=== PATIENT | male | born 1950 | race Caucasian/White ===

== ENCOUNTER 2016-08-12 14:47 | Observation (INO) ==
[2016-08-12] MEDS ORDERED: predniSONE 20 MG TABLET PO ONE (15:38)
[2016-08-12] MEDS ORDERED: Ipratropium/Albuterol Neb 3 ML IH ONE (15:38)
--- NOTE | 2016-08-12 15:48 | Emergency Department Note ---
Disposition Clinical Impression: Lung mass, Atelectasis, Tobacco abuse Disposition: Admitted As Inpatient Condition: Fair SOB HPI - General Chief Complaint: ED Shortness of Breath/Dyspnea Stated Complaint: YUE Time Seen by Provider: 08/12/16 15:17 Source: patient Limitations: no limitations Nursing Notes Reviewed: Yes Vital Signs Reviewed: Yes - History of Present Illness 65 on male presents with chief complaint of shortness of breath of one-week that has been progressively getting worse. Denies productive cough, fevers, chills. Shortness of breath does not worsen with movement and is the same laying down or sitting up. Currently patient is satting 100% on room air but states he feels very short of breath. His face is very pink. Patient has a history of cigarette smoking since his teenage years and smokes 1 pack per day. He does not have a primary care physician. He is not on any medications. He does not have home O2. Patient states he has been progressively losing weight and has a decreased appetite but does not know how much. Furthermore he reports left upper chest pain that started at the same time as his shortness of breath that does not radiate, is not associated nausea or vomiting, diaphoresis. Patient says his pain does worsen with breathing and movement. Furthermore patient had a deer tick on his left shoulder that was present for one week. - Related Data Home Medications Medication Instructions Recorded Confirmed No Known Home Drugs 08/12/16 08/12/16 Allergies Allergy/AdvReac Type Severity Reaction Status Date / Time No Known Allergies Allergy Verified 08/12/16 14:52 Review of Systems: ROS: Constitutional: Denies fevers chills, reports weight loss HEENT: Denies blurry vision, headache, sore throat, rhinorrhea Heart: palpitations, syncope, diaphoresis, reports left upper chest pain Lungs: Reports shortness of breath, denies cough Abdomen: Denies abdominal pain, nausea, vomiting : Denies dysuria, Extremeties: Denies leg cramps, swelling Neuro: Denies numbness and tingling All systems ED: reviewed and negative except as stated. Past Medical History - Past Medical History Medical history: Reports: no medical history Psychiatric history: Reports: no psych history - Social History Smoking Status: Current every day smoker Smokeless Tobacco Status: No Alcohol use: Reports: occasionally Drug use: Reports: none Physical Exam General: Alert and oriented to place, time, self, red face HEENT: Head normocephalic, atraumatic, EOMI, PERRLA, neck without lymphadenopathy, absent JVD, moist mucous membranes Heart: Regular rate and rhythm no murmur, Lungs: Bibasilar wheezing Abdomen: Soft nontender nondistended with positive bowel sounds Extremities: Normal capillary refill, absent pedal edema, upper and lower extra strength 5 out of 5, left shoulder abduction with resistance is painful for the patient vascular: Pedal pulses and radial pulses 2 out of 4 - General Limitations: no limitations General appearance: alert Course Course Narrative: We will order basic labs, CT chest. Chest x-ray shows possible obstructive mass , which is quite concerning as patient has history of smoking without any follow -up outpatient with her primary care physician and states he has had decreased appetite and unintentional weight loss. EKG is normal sinus rhythm - Reevaluation(s) Reevaluation #1: Chest x-ray shows possible obstructing mass. CT chest without contrast shows obstructing mass 3 x 3 cm left hilar region with collapsing of the left upper lobe. Patient was told his CT results and understands the gravity of the finding. He is willing to be admitted for further evaluation including bronchoscopy. We will contact hospitalist for admission. Time: 16:51 Reevaluation #2: Patient accepted by hospitalist. Time: 17:02 Vital Signs Temperature 98.1 F 08/12/16 14:52 Pulse Rate 84 08/12/16 14:52 Respiratory Rate 20 08/12/16 14:52 Blood Pressure 144/84 08/12/16 14:52 O2 Sat by Pulse Oximetry 99 08/12/16 14:52 Temperature 98.1 F 08/12/16 14:52 Pulse Rate 86 08/12/16 16:49 Respiratory Rate 16 08/12/16 17:46 Blood Pressure 137/87 08/12/16 17:46 O2 Sat by Pulse Oximetry 98 08/12/16 16:49 Oxygen Delivery Oxygen Delivery Room Air Shortness of Breath/Dyspnea - [facility] Narrative Medical decision making narrative: Patient's shortness of breath is most likely secondary to possible lung mass causing collapse of the left upper lobe. - Differential Diagnosis Likely: acute exacerbation of chronic obstructive airways disease - Medical Records Medical records reviewed: Yes I reviewed the patient's medical records. - Lab Data Lab results reviewed: Yes I reviewed the patient's lab results. Result diagrams: 08/12/16 16:42 08/12/16 16:42 Lab Results 08/12/16 08/12/16 08/12/16 Range/Units 16:42 16:42 16:42 WBC 8.4 (4.3-11.1) K/mcL RBC 4.72 (4.19-5.50) M/mcL Hgb 14.3 (12.9-16.9) g/dL Hct 41.6 (37.5-50.1) % MCV 88.1 (83.0-100.0) fL MCH 30.3 (28.0-33.3) pg MCHC 34.4 (31.6-35.5) g/dL RDW 12.9 (11.5-14.5) % Plt Count 456 H (140-400) K/mcL MPV 8.7 L (9.4-12.4) fL Immature Gran % 0.4 (0-4) % Seg Neutrophils % 67.9 % Lymphocytes % 21.4 % Monocytes % 8.5 % Eosinophils % 1.1 % Basophils % 0.7 % Neutrophils # 5.7 (1.6-8.9) K/mcL Lymphocytes # 1.8 (0.6-4.6) K/mcL Monocytes # 0.7 (0.0-1.3) K/mcL Eosinophils # 0.1 (0.0-0.6) K/mcL Basophils # 0.1 (0.0-0.2) K/mcL Sodium 132 L (136-145) mEq/L Potassium 4.4 (3.5-4.5) mEq/L Chloride 94 L (98-109) mEq/L Carbon Dioxide 29 (19-29) mEq/L BUN 5 L (8-26) mg/dL Creatinine 0.68 L (0.72-1.25) mg/dL Est GFR ( Amer) > 60 (> 60) Est GFR (Non-Af Amer) > 60 (> 60) BUN/Creatinine Ratio 7 (6-26) Glucose 96 (70-99) mg/dL Calculated Osmolality 271 L (280-300) Calcium 10.3 (8.6-10.8) mg/dL Troponin I 0.00 (0-0.03) ng/mL - Radiology Data Radiology results reviewed: Yes I reviewed the patient's radiology results. - EKG Data EKG attestation: Yes I reviewed and interpreted this EKG. EKG results narrative: EKG shows sinus rhythm rate [address]-T wave changes no changes from the past. Normal sinus rhythm Attestation Statement - Attestation Attestation: I examined this patient and my medical decision-making was reviewed with the QA INTER[employer]/PA/Advanced Practice Nurse/Resident Physician. I agree with the documented findings, disposition and treatment plan as described except to the extent set forth below. I had face to face time with the patient. 65-year-old with a very positive history of smoking who comes in with weight loss and cough. Physical examination shows diffuse wheezing. Chest x-ray was concerning for a mass. CT scan was obtained which appears to show mass and adenopathy. Patient will be admitted to the hospital for further evaluation and treatment.
[2016-08-12 16:56] LABS: Basophils # 0.1 K/mcL (0.0-0.2); Basophils % 0.7 %; Eosinophils # 0.1 K/mcL (0.0-0.6); Eosinophils % 1.1 %; Hematocrit 41.6 % (37.5-50.1); Hemoglobin 14.3 g/dL (12.9-16.9); Immature Granulocytes % 0.4 % (0-4); Lymphocytes # 1.8 K/mcL (0.6-4.6); Lymphocytes % 21.4 %; Mean Corpuscular HGB Conc 34.4 g/dL (31.6-35.5); Mean Corpuscular Hemoglobin 30.3 pg (28.0-33.3); Mean Corpuscular Volume 88.1 fL (83.0-100.0); Mean Platelet Volume 8.7 fL (9.4-12.4); Monocytes # 0.7 K/mcL (0.0-1.3); Monocytes % 8.5 %; Neutrophils # 5.7 K/mcL (1.6-8.9); Platelet Count 456 K/mcL (140-400); Red Blood Count 4.72 M/mcL (4.19-5.50); Red Cell Distribution Width 12.9 % (11.5-14.5); Segmented Neutrophils % 67.9 %
[2016-08-12 17:07] LABS: BUN/Creatinine Ratio 7 (6-26); Blood Urea Nitrogen 5 mg/dL (8-26); Calcium 10.3 mg/dL (8.6-10.8); Carbon Dioxide 29 mEq/L (19-29); Chloride 94 mEq/L (98-109); Glucose 96 mg/dL (70-99); Osmolality,Calculated 271 (280-300); Potassium 4.4 mEq/L (3.5-4.5); Sodium 132 mEq/L (136-145); eGFR For African Americans > 60 (> 60); eGFR For Non-African Americans > 60 (> 60)
[2016-08-12] MEDS ORDERED: Naloxone 0.4 MG/ML INJ IVP PRN (17:54)
[2016-08-12] MEDS ORDERED: *HR* LORazepam 2 MG/ML VIAL IVP PRN ×3 (17:58)
--- NOTE | 2016-08-12 18:08 | Internal Med History&Physical ---
<Maria Guadalupe Dugan M - Last Filed: 08/12/16 20:41> Date of Encounter: 08/12/16 Time of Encounter: 18:05 Assessment and Plan (1) Lung mass Current visit: Yes Status: Acute Patient presented with shortness of breath, weight loss, and pain on inspiration. Patient satting 97% on room air. CXR shows Left upper lobe atelectasis, a proximally obstructing mass should be considered. Noncontrast Chest CT shows probable left hilar/suprahilar mass measuring approximately 3 x 3 cm, endobroncial component is suspected given the left upper lobe atelectasis. Titrate Oxygen to maintain O2 sat > 92% Consult to pulmonology ordered, will need to be called in the morning NPO after midnight for possible bronchoscopy tomorrow. (2) Alcohol abuse Current visit: Yes Status: Acute Patient reports he drinks 10 beers per day. CIWA protocol ordered. LFTs, Amylase and Lipase were normal. (3) Tobacco abuse Current visit: Yes Status: Acute Patient smokes 1PPD. Discussed smoking cessation. Nicotine patch ordered. (4) DVT prophylaxis Current visit: Yes Status: Acute encourage ambulation anti-embolic stockings Lovenox 40mg SQ daily Internal Medicine - H&P: HPI Chief complaint: shortness of breath Admitted From: Emergency Dept Plans for Post Hospital Care: Home History of present illness: Mr. Davenport is a 65 year old male with no past medical history presented to the emergency department today with complaints of shortness of breath for the last 2 weeks which has been getting worse. Patient reports the shortness of breath comes and goes, but is not associated with activity or rest, or position. He also complains of pain in his left shoulder which has been going on for about a week when he takes a deep breath he notices the pain in his left shoulder is worse. He has occasional lightheadedness. He reports a poor appetite which has been getting worse over the last 6 months, and significant weight loss, though he does not know how much weight. He denies any headache, palpitations, cough, fever, chills, night sweats. He denies any numbness or tingling. Patient is a smoker with a [id number] history. He also reported he drinks 10 beers per day. Evaluation in emergency department was significant for a chest x -ray which showed left upper lobe atelectasis, approximately obstructing mass should be considered. Noncontrast CT of the chest showed probable left hilar/ super hilar mass measuring approximately 3 x 3 cm, endobronchial component is suspected given the left upper lobe atelectasis. White blood cell count was normal. Troponin was negative at 0.0. Patient had some mild hyponatremia with sodium of 132. On exam, patient is alert and oriented, in no acute distress. Heart is regular rate and rhythm lungs are clear bilaterally to auscultation. Patient is satting 97% on room air. Past Med Surg Social Fam HX - Past Medical History Medical history: no medical history Psychiatric history: no psych history - Past Surgical History Surgical History: non-contributory - Social History Smoking Status: Current every day smoker (50 Pack year history) Smokeless Tobacco Status: No Alcohol use: heavy Drug use: none - Family History Mother Living Status: Cause of : Cancer Hx Family Cancer: Yes Father Living Status: Age at : 85 Cause of : lung CA Hx Family Cancer: Yes Internal Medicine - H&P: Meds No Known Home Drugs 08/12/16 [History] Allergies No Known Allergies Allergy (Verified 08/12/16 14:52) All Systems PM: A 10-system review of systems was performed and is negative for pertinent findings except as documented above in the HPI. - Constitutional Constitutional: anorexia, weight loss, no chills, no fever(s), no night sweats - EENT Eyes: no change in vision, no discharge, no pain, no photophobia Ears: no ear discharge, no ear pain, no tinnitus Nose, mouth and throat: no dysphagia, no nasal discharge, no neck pain, no sore throat - Cardiovascular Cardiovascular ROS IM: chest pain (left shoulder), no diaphoresis, no dyspnea, no lightheadedness, no palpitations, no syncope - Respiratory Respiratory: dyspnea, pain on inspiration, no cough, no wheezing, no excessive phlegm production - Gastrointestinal Gastrointestinal: no abdominal pain, no diarrhea, no hematemesis, no hematochezia, no melena, no nausea, no vomiting - Musculoskeletal Musculoskeletal ROS IM: no numbness, no tingling - Integumentary Integumentary IM: no rash, no unusual bruising - Neurological Neurological ROS: no confusion, no convulsions, no focal weakness, no numbness, no tingling, no tremor(s) - Hematologic/Lymphatic Hematologic/Lymphatic: no easy bruising - Constitutional Vitals: Temp Pulse Resp BP Pulse Ox 98.1 F 86 16 137/87 98 08/12/16 14:52 08/12/16 16:49 08/12/16 17:46 08/12/16 17:46 08/12/16 16:49 General appearance: Present: A&O X 3, pleasant, no acute distress - Head Head exam: Present: atraumatic, normocephalic - Eye Eye exam: Present: PERRL, conjuntiva pink, sclera anicteric Pupils: Present: PERRL - Neck Neck exam general surgery: Present: supple, trachea midline. Absent: lymphadenopathy - Respiratory Respiratory exam: Present: CTAB. Absent: accessory muscle use, rales, rhonchi, wheezes - Cardiovascular Cardiovascular exam: Present: RRR, +S1, +S2. Absent: diastolic murmur, gallop, rubs, systolic murmur - GI/Abdominal GI/Abdominal exam: Present: normal bowel sounds, soft, no peritoneal signs. Absent: distended, tenderness - Extremities Exam Extremities exam: Present: warm, radial pulses palpable and symetrical. Absent : calf tenderness, cyanotic, pedal edema - Neurological Exam Neurological exam: Present: CN II-XII intact, oriented X3, no focal deficits. Absent: facial droop, speech deficit - Skin Skin exam: Present: dry, erythema (facial erythema), intact Internal Med - H&P Results - Labs CBC & Chem 7: 08/12/16 16:42 08/12/16 16:42 Labs: All Lab Results (24 Hours) 08/12/16 08/12/16 08/12/16 Range/Units 16:42 16:42 16:42 WBC 8.4 (4.3-11.1) K/mcL RBC 4.72 (4.19-5.50) M/mcL Hgb 14.3 (12.9-16.9) g/dL Hct 41.6 (37.5-50.1) % MCV 88.1 (83.0-100.0) fL MCH 30.3 (28.0-33.3) pg MCHC 34.4 (31.6-35.5) g/dL RDW 12.9 (11.5-14.5) % Plt Count 456 H (140-400) K/mcL MPV 8.7 L (9.4-12.4) fL Immature Gran % 0.4 (0-4) % Seg Neutrophils % 67.9 % Lymphocytes % 21.4 % Monocytes % 8.5 % Eosinophils % 1.1 % Basophils % 0.7 % Neutrophils # 5.7 (1.6-8.9) K/mcL Lymphocytes # 1.8 (0.6-4.6) K/mcL Monocytes # 0.7 (0.0-1.3) K/mcL Eosinophils # 0.1 (0.0-0.6) K/mcL Basophils # 0.1 (0.0-0.2) K/mcL Sodium 132 L (136-145) mEq/L Potassium 4.4 (3.5-4.5) mEq/L Chloride 94 L (98-109) mEq/L Carbon Dioxide 29 (19-29) mEq/L BUN 5 L (8-26) mg/dL Creatinine 0.68 L (0.72-1.25) mg/dL Est GFR ( Amer) > 60 (> 60) Est GFR (Non-Af Amer) > 60 (> 60) BUN/Creatinine Ratio 7 (6-26) Glucose 96 (70-99) mg/dL Calculated Osmolality 271 L (280-300) Calcium 10.3 (8.6-10.8) mg/dL Troponin I 0.00 (0-0.03) ng/mL - Diagnostic Studies Chest x-ray Additional comments: Chest X-Ray 08/12/16 14:55 IMPRESSION: Evidence for left upper lobe atelectasis. A proximally obstructing mass should be considered. Bronchoscopy or a chest CT may be helpful for further evaluation D/ / Channing Maradiaga MD / Channing Maradiaga MD Interpreting Provider: Channing Maradiaga MD CT scan - chest Additional comments: Chest CT 08/12/16 15:38 IMPRESSION: 1. Suboptimal evaluation of probable left hilar/suprahilar mass measuring approximately 3 x 3 cm. Endobronchial component is suspected given the left upper lobe atelectasis. Further evaluation with contrast-enhanced chest CT and/or bronchoscopy is recommended. D/ / 08/12/2016 16:29:37 Elle Mitchell MD / jesse Interpreting Provider: Elle Mitchell MD <JustinherminiaNeil - Last Filed: 08/13/16 00:26> Date of Encounter: 08/12/16 Internal Medicine - H&P: HPI History of present illness: Mr. Davenport is a 65 year old male All Systems PM: A 10-system review of systems was performed and is negative for pertinent findings except as documented above in the HPI. - Constitutional Vitals: Temp Pulse Resp BP Pulse Ox 97.8 F 65 15 119/68 97 08/12/16 20:03 08/12/16 23:50 08/12/16 23:50 08/12/16 23:50 08/12/16 23:50 Internal Med - H&P Results - Labs CBC & Chem 7: 08/12/16 16:42 08/12/16 16:42 - Attending Attestation I personally interviewed and examined this patient and my medical decision- making was reviewed with the Advanced Practice Nurse. I agree with the documented findings, disposition and treatment plan as described.
[2016-08-12 18:25] LABS: INR 1.1; Prothrombin Time 11.5 Seconds (9.4-12.1)
[2016-08-12 18:28] LABS: Alanine Aminotransferase 20 Units/L (0-55); Albumin/Globulin Ratio 0.6 (1.1-2.2); Alkaline Phosphatase 42 Units/L (38-126); Amylase 91 Units/L (25-125); Aspartate Amino Transferase 25 Units/L (5-34); Bilirubin,Direct 0.2 mg/dL (0.0-0.5); Bilirubin,Indirect 0.2 mg/dL (0.0-1.2); Bilirubin,Total 0.4 mg/dL (0.2-1.2); Ethanol < 10 mg/dL (0-10); Lipase 8 Units/L (8-78)
[2016-08-12] MEDS: Nicotine 21 MG PATCH.TD24 TD SCH (18:32)
[2016-08-12] MEDS: Ibuprofen 600 MG TABLET PO PRN (20:34)
[2016-08-13 05:01] LABS: Basophils % 0.3 %; Hematocrit 38.6 % (37.5-50.1); Hemoglobin 13.5 g/dL (12.9-16.9); Immature Granulocytes % 0.5 % (0-4); Lymphocytes # 1.1 K/mcL (0.6-4.6); Lymphocytes % 17.2 %; Mean Corpuscular Hemoglobin 30.8 pg (28.0-33.3); Mean Corpuscular Volume 87.9 fL (83.0-100.0); Mean Platelet Volume 9.1 fL (9.4-12.4); Monocytes # 0.5 K/mcL (0.0-1.3); Monocytes % 7.8 %; Neutrophils # 4.8 K/mcL (1.6-8.9); Platelet Count 451 K/mcL (140-400); Red Blood Count 4.39 M/mcL (4.19-5.50); Red Cell Distribution Width 12.9 % (11.5-14.5); Segmented Neutrophils % 74.2 %
[2016-08-13 05:23] LABS: BUN/Creatinine Ratio 11 (6-26); Blood Urea Nitrogen 7 mg/dL (8-26); Calcium 10.2 mg/dL (8.6-10.8); Carbon Dioxide 28 mEq/L (19-29); Chloride 96 mEq/L (98-109); Glucose 125 mg/dL (70-99); Magnesium 1.6 mg/dL (1.6-2.6); Osmolality,Calculated 279 (280-300); Phosphorous 4.1 mg/dL (2.3-4.7); Potassium 4.5 mEq/L (3.5-4.5); Sodium 135 mEq/L (136-145); eGFR For African Americans > 60 (> 60); eGFR For Non-African Americans > 60 (> 60)
[2016-08-13] MEDS: *HR* Enoxaparin 40 MG/0.4 ML SYRINGE SQ SCH (06:37)
--- NOTE | 2016-08-13 08:21 | Pulmonology Consult Note ---
Date of Encounter: 08/13/16 Time of Encounter: 08:18 Assessment and Plan (1) Abnormal CT scan, chest Current Visit: Yes Status: Acute The abnormal findings noted from review of CT scan in conjunction with the patient's smoking history and symptoms are all suggestive of bronchogenic malignancy. The patient aside from proximal obstructing lesion in the left upper lobe may have mediastinal adenopathy as well. Further evaluation will be performed to include conventional bronchoscopy and EBUS. I reviewed the situation with the patient, his daughter and all agree to proceed as outlined. Parvez Morley [phone] Code(s): R93.8 - Abnormal findings on diagnostic imaging of other specified body structures History of Present Illness Consult date: 08/13/16 Chief complaint: Cough, shortness of breath, weight loss History of present illness: This 65-year-old male active cigarette smoker of at least [id number] intensity was admitted to the hospital with complaints of nonproductive cough, progressive breathlessness with activity and nonelective weight loss (he estimates approximately 10-12 pound weight loss over the last several months). Given his complaints, a CT scan of the chest was obtained which was abnormal and hence pulmonary consultation requested. The patient denies hemoptysis, pleuritic chest pain, fever or chills. There is no well established family history of pulmonary disease or pulmonary malignancy. 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 Past Med Surg Social Fam HX - Past Medical History Medical history: no medical history Psychiatric history: no psych history - Past Surgical History Surgical History: non-contributory - Social History Smoking Status: Current every day smoker (50 Pack year history) Smokeless Tobacco Status: No Alcohol use: heavy Drug use: none - Family History Mother Living Status: Cause of : Cancer Hx Family Cancer: Yes Father Living Status: Age at : 85 Cause of : lung CA Hx Family Cancer: Yes Medications and Allergies No Known Home Drugs 08/12/16 [History] Allergies No Known Allergies Allergy (Verified 08/12/16 14:52) All Systems: A 10-system review of systems was performed and is negative for pertinent findings except as documented above in the HPI. - Constitutional Constitutional: as per HPI - Respiratory Respiratory: as per HPI Physical Examination Vital Signs: Vital Signs, Last 4 Hours Temp Pulse Resp BP Pulse Ox 08/13/16 04:42 98.6 F 71 16 142/89 96 General appearance: no acute distress, other (Cachectic, male appears stated age.) Eyes: nonicteric ENT: oropharynx moist Auscultation: left: diminished breath sounds (Attenuated breath sounds left upper lobe.), bilateral: clear Cardiovascular: regular rate and rhythm Gastrointestinal: normoactive bowel sounds, non-distended Extremities: no cyanosis, no edema, no clubbing normal mental status, non-focal exam mood appropriate Results - Laboratory Findings CBC and BMP: 08/13/16 04:44 08/13/16 04:44 PT/INR, D-dimer PT 11.5 Seconds (9.4-12.1) 08/12/16 16:42 Abnormal lab findings: Abnormal lab results Plt Count 451 K/mcL (140-400) H 08/13/16 04:44 MPV 9.1 fL (9.4-12.4) L 08/13/16 04:44 Sodium 135 mEq/L (136-145) L 08/13/16 04:44 Chloride 96 mEq/L (98-109) L 08/13/16 04:44 BUN 7 mg/dL (8-26) L 08/13/16 04:44 Creatinine 0.66 mg/dL (0.72-1.25) L 08/13/16 04:44 Glucose 125 mg/dL (70-99) H 08/13/16 04:44 Calculated Osmolality 279 (280-300) L 08/13/16 04:44 Albumin 3.0 g/dL (3.5-5.0) L 08/12/16 16:42 Globulin 5.0 g/dL (2.4-3.5) H 08/12/16 16:42 Albumin/Globulin Ratio 0.6 (1.1-2.2) L 08/12/16 16:42 - Diagnostic Findings CT scan - chest: image reviewed (Chest CT notable for complete volume loss of the left upper lobe with the appearance of a drowned lung, proximal obstruction of the left upper lobe bronchus, prominence of the left paratracheal region by lymph adenopathy, large calcified right paratracheal lymph node. There is also mild prominence of the subcarinal lymph node chain.) Consult Discharge Plan - Plan Referrals: NO,PCP [Primary Care Provider] -
[2016-08-13] MEDS: Nicotine 21 MG PATCH.TD24 TD SCH (09:20)
[2016-08-13] MEDS: Ibuprofen 600 MG TABLET PO PRN ×2 (09:59→19:30)
[2016-08-13] MEDS ORDERED: Lidocaine Viscous Oral Soln 15 ML SOLUTION ONE (11:31)
[2016-08-13] MEDS ORDERED: *HR* Midazolam HCl 5 MG/5 ML VIAL IVP ONE (11:31)
[2016-08-13] MEDS ORDERED: *HR* FentaNYL (PF) 100 MCG/2 ML VIAL ONE (11:31)
[2016-08-13] MEDS ORDERED: *HR* FentaNYL (PF) 100 MCG/2 ML VIAL IVP PRN (11:46)
[2016-08-13] MEDS ORDERED: Lidocaine Viscous Oral Soln 15 ML SOLUTION MM ONE (11:46)
[2016-08-13] MEDS ORDERED: *HR* Midazolam HCl 5 MG/5 ML VIAL IVP PRN (11:46)
[2016-08-13] MEDS ORDERED: *HR* EPINEPHrine 1 MG/10 ML SYRINGE INTRATRACH PRN (11:46)
[2016-08-13] MEDS ORDERED: 0.9 % Sodium Chloride 1,000 ML IVC SCH (12:00)
--- NOTE | 2016-08-13 13:52 | Event Note ---
Date of Encounter: 08/13/16 Time of Encounter: 13:50 The bronchoscopy performed earlier today revealed malignant disease encroaching upon the main paulina within the left mainstem bronchus as well as complete obstruction of the left upper lobe. Patient also had visual evidence to suggest left vocal cord paresis and hence given the findings from bronchoscopy as well as the imaging studies, this patient has advanced stage non-small cell lung cancer and would only be a candidate to receive chemotherapy and radiation therapy. I reviewed the findings as well as the ramifications of these findings with the patient's family. From my perspective, the patient can be discharged from the hospital and follow-up with oncology in order to coordinate chemotherapy and radiation therapy. Thank you for the consultation, please contact me should she have any questions Parvez Grant [phone]
--- NOTE | 2016-08-13 17:27 | Internal Med Progress Note ---
<Elvi Graf - Last Filed: 08/13/16 17:24> Date of Encounter: 08/13/16 Time of Encounter: 10:00 - Assessment and plan (1) Lung mass Current Visit: Yes Status: Acute Assessment and plan: chest CT showed left hilar/suprahilar mass measuring 3x3cm. endobronchial component suspected. pulmonology on board patient had bronchoscopy earlier today, which revealed malignant disease encroaching upon the main paulina within the left mainstem bronchus, as well as complete obstruction of the left upper lobe. visual evidence to suggest left vocal cord paresis, suggesting of non small cell lung cancer. Plan: will monitor overnight, likely discharge tomorrow. will follow up outpatient with heme/onc (2) Alcohol abuse Current Visit: Yes Status: Acute Assessment and plan: according to history, patient drinks about 10 beers per day. LFTs, amylase, lipase normal. [facility] protocol. (3) Tobacco abuse Current Visit: Yes Status: Acute Assessment and plan: patient has 50 pack year smoking history. states he quit two years ago. Plan: smoking cessation advised nicotine patch as needed (4) DVT prophylaxis Current Visit: Yes Status: Acute Assessment and plan: lovenox. - Subjective Interval history: 65 year old male evaluated at bedside. he denies nausea, vomiting, diarrhea, fever, chills. he repors SOB when lying flat x2 weeks. he states he props himself up on one pillow. he denies blood in stool, denies tarry stools and coffee ground emesis. patient's family reports that they have noticed a change in his voice recently, and that it has become more hoarse. - Constitutional Vitals: Temp Pulse Resp BP Pulse Ox 97.6 F 79 16 147/92 69 08/13/16 15:51 08/13/16 15:51 08/13/16 15:51 08/13/16 15:51 08/13/16 15:51 General appearance: Present: A&O X 3, pleasant, no acute distress - Head Head exam: Present: atraumatic, normocephalic - Neck Neck exam general surgery: Present: supple, trachea midline - Respiratory Respiratory exam: Present: CTAB - Extremities Exam Extremities exam: Absent: cyanotic, tenderness Additional comments: clubbing present. - Neurological Exam Neurological exam: Present: alert, oriented X3, no focal deficits - Psychiatric Psychiatric exam: Present: anxious, depressed - Skin Additional comments: significant erythema on the face and neck. Internal Medicine: Result - Labs CBC & Chem 7: 08/13/16 04:44 08/13/16 04:44 Labs: Short CBC 08/13/16 Range/Units 04:44 WBC 6.5 (4.3-11.1) K/mcL Hgb 13.5 (12.9-16.9) g/dL Hct 38.6 (37.5-50.1) % Plt Count 451 H (140-400) K/mcL Neutrophils # 4.8 (1.6-8.9) K/mcL BMP 08/13/16 04:44 Sodium 135 L Potassium 4.5 Chloride 96 L Carbon Dioxide 28 BUN 7 L Creatinine 0.66 L Glucose 125 H Calcium 10.2 - ABG Interpretation ABG results: PT/INR, D-dimer PT 11.5 Seconds (9.4-12.1) 08/12/16 16:42 - VTE Documentation of Mechanical Device: Graduated compression elastic hosiery Consult Discharge Plan - Plan Referrals: Jose Enrique Vela MD [Non-Partnered Physician] - 09/02/16 9:15 am (please bring photo id, med list, insurance card, will recive packet in mail please fill that put and bring to appoinment. if you are unable to make this appoinment please give 24 hour notice thanks) <Juan F Sanchez P - Last Filed: 08/13/16 18:07> Date of Encounter: 08/13/16 - Constitutional Vitals: Temp Pulse Resp BP Pulse Ox 97.6 F 79 16 147/92 69 08/13/16 15:51 08/13/16 15:51 08/13/16 15:51 08/13/16 15:51 08/13/16 15:51 Internal Medicine: Result - Labs CBC & Chem 7: 08/13/16 04:44 08/13/16 04:44 Labs: Short CBC 08/13/16 Range/Units 04:44 WBC 6.5 (4.3-11.1) K/mcL Hgb 13.5 (12.9-16.9) g/dL Hct 38.6 (37.5-50.1) % Plt Count 451 H (140-400) K/mcL Neutrophils # 4.8 (1.6-8.9) K/mcL BMP 08/13/16 04:44 Sodium 135 L Potassium 4.5 Chloride 96 L Carbon Dioxide 28 BUN 7 L Creatinine 0.66 L Glucose 125 H Calcium 10.2 - ABG Interpretation ABG results: PT/INR, D-dimer PT 11.5 Seconds (9.4-12.1) 08/12/16 16:42 - Attending Attestation I examined this patient and my medical decision-making was reviewed with the ACTIVE DIRECTORY ARCHITECT/PA/Advanced Practice Nurse/Resident Physician. I agree with the documented findings, disposition and treatment plan as described except to the extent set forth below.
--- NOTE | 2016-08-13 19:25 | Electrocardiograph Report ---
[address] [address] Test Date: 2016-08-12 Pat Name: Mikie Davenport Department: [id number] Room: [facility] Gender: M Racking Technician: : [id number] Requested By: Helene See Order Number: [id number] Reading MD: Rodger Ureña MD Measurements Intervals [place] Rate: 86 P: 52 ME: 174 QRS: 51 QRSD: 94 T: 74 QT: 364 QTc: 407 Interpretive Statements SINUS RHYTHM Electronically Signed On 08-13-2016 19:23:58 EDT by Rodger Ureña MD
[2016-08-13 23:25] LABS: Hemoglobin 12.7 g/dL (12.9-16.9)
[2016-08-14] MEDS: *HR* Enoxaparin 40 MG/0.4 ML SYRINGE SQ SCH (05:18)
[2016-08-14] MEDS: Ibuprofen 600 MG TABLET PO PRN (05:21)
[2016-08-14 06:30] LABS: Basophils # 0.1 K/mcL (0.0-0.2); Basophils % 0.6 %; Eosinophils % 0.5 %; Hematocrit 39.2 % (37.5-50.1); Hemoglobin 13.5 g/dL (12.9-16.9); Immature Granulocytes % 0.3 % (0-4); Lymphocytes # 1.1 K/mcL (0.6-4.6); Mean Corpuscular HGB Conc 34.4 g/dL (31.6-35.5); Mean Corpuscular Hemoglobin 30.8 pg (28.0-33.3); Mean Corpuscular Volume 89.3 fL (83.0-100.0); Mean Platelet Volume 9.4 fL (9.4-12.4); Monocytes # 0.7 K/mcL (0.0-1.3); Monocytes % 7.8 %; Neutrophils # 6.9 K/mcL (1.6-8.9); Platelet Count 457 K/mcL (140-400); Red Blood Count 4.39 M/mcL (4.19-5.50); Red Cell Distribution Width 13.1 % (11.5-14.5); Segmented Neutrophils % 78.8 %
[2016-08-14 06:54] LABS: BUN/Creatinine Ratio 12 (6-26); Blood Urea Nitrogen 8 mg/dL (8-26); Calcium 10.2 mg/dL (8.6-10.8); Carbon Dioxide 30 mEq/L (19-29); Chloride 100 mEq/L (98-109); Glucose 103 mg/dL (70-99); Osmolality,Calculated 285 (280-300); Sodium 138 mEq/L (136-145); eGFR For African Americans > 60 (> 60); eGFR For Non-African Americans > 60 (> 60)
[2016-08-14 07:20] VITALS: BP 135/86
[2016-08-14] MEDS: Nicotine 21 MG PATCH.TD24 TD SCH (09:26)
--- NOTE | 2016-08-14 10:35 | Discharge Summary ---
Date of Encounter: 08/14/16 Time of Encounter: 10:33 - Discharge Diagnosis (1) Lung mass Priority: Primary Status: Acute (2) Atelectasis Priority: Secondary Status: Acute (3) Tobacco abuse Priority: Secondary Status: Acute (4) Alcohol abuse Priority: Secondary Status: Acute (5) DVT prophylaxis Priority: Secondary Status: Acute - Discharge Medications Prescriptions: Levofloxacin [Levaquin] 500 mg PO DAILY #5 tablet Nicotine Patch [Nicoderm] 21 mg TD DAILY #30 patch.td24 Home Medications: Levofloxacin [Levaquin] 500 mg PO DAILY #5 tablet 08/14/16 [Rx] Nicotine Patch [Nicoderm] 21 mg TD DAILY #30 patch.td24 08/14/16 [Rx] Allergies/Adverse Reactions: Allergies No Known Allergies Allergy (Verified 08/12/16 14:52) Date of admission: 08/12/16 17:29 Primary care physician: PCP NO Consults: 08/12/16 17:59 Consult to Quality Control Manager [CONS] Routine Reason for SW Consult: drinks 10 beers per day 08/12/16 18:01 Consult to Pulmonology [CONS] Routine Consulting Provider: [facility] [place] Reason for Consult: New obstructing lung mass seen on CXR and CT. 50 Pack year smoking history Call Completed: No 08/12/16 18:30 Consult to Nutrition [CONS] Routine Comment: weight loss Consulting Provider: NUTRITION Reason for Dietary Consult: PO Supplementation Consult to Quality Control Manager [CONS] Routine Reason for SW Consult: possible home o2 08/13/16 19:20 Consult to Oncology Hematology [CONS] Routine Consulting Provider: Adamaris Clark Reason for Consult: Dr. Sanchez called earlier. For stage IV non-small cell lung cancer, for chemo/radiation as outpatient. Call Completed: Yes Discharging clinician: Juan F Sanchez - Patient Status Disposition: Home, Self-Care Condition: Fair Functional capacity at discharge: independent ambulation Overall status at discharge: patient is progressing back to baseline - Discharge Instructions Follow Up With: Jose Enrique Vela MD [Non-Partnered Physician] - 09/02/16 9:15 am (please bring photo id, med list, insurance card, will recive packet in mail please fill that put and bring to appoinment. if you are unable to make this appoinment please give 24 hour notice thanks) Adamaris Clark MD [Partnered Physician] - - Diet and Activity Activity: increase activity as tolerated Diet: low fat, low cholesterol, low salt diet Interval History: Mr. Davenport is a 65 year old male with no past medical history presented to the emergency department today with complaints of shortness of breath for the last 2 weeks which has been getting worse. Patient reports the shortness of breath comes and goes, but is not associated with activity or rest, or position. He also complains of pain in his left shoulder which has been going on for about a week when he takes a deep breath he notices the pain in his left shoulder is worse. He has occasional lightheadedness. He reports a poor appetite which has been getting worse over the last 6 months, and significant weight loss, though he does not know how much weight. He denies any headache, palpitations, cough, fever, chills, night sweats. He denies any numbness or tingling. Patient is a smoker with a [id number] history. He also reported he drinks 10 beers per day. Evaluation in emergency department was significant for a chest x -ray which showed left upper lobe atelectasis, approximately obstructing mass should be considered. Noncontrast CT of the chest showed probable left hilar/ super hilar mass measuring approximately 3 x 3 cm, endobronchial component is suspected given the left upper lobe atelectasis. White blood cell count was normal. Troponin was negative at 0.0. Patient had some mild hyponatremia with sodium of 132. On exam, patient is alert and oriented, in no acute distress. Heart is regular rate and rhythm lungs are clear bilaterally to auscultation. Patient is satting 97% on room air. Hospital course: Patient was hospitalized. He underwent evaluation by pulmonary. Pulmonology decided to do a bronchoscopy. Following is a copy and paste note from pulmonology which describes the bronchoscopy findings. The reason I am doing this to get all document in one place that is in discharge summary. "The bronchoscopy performed earlier today revealed malignant disease encroaching upon the main paulina within the left mainstem bronchus as well as complete obstruction of the left upper lobe. Patient also had visual evidence to suggest left vocal cord paresis and hence given the findings from bronchoscopy as well as the imaging studies, this patient has advanced stage non -small cell lung cancer and would only be a candidate to receive chemotherapy and radiation therapy. I reviewed the findings as well as the ramifications of these findings with the patient's family. From my perspective, the patient can be discharged from the hospital and follow-up with oncology in order to coordinate chemotherapy and radiation therapy." Patient can go home today. Patient can follow-up with residency clinic as patient does not have primary care provider. I have spoken to oncologist Dr Gerard and he will follow-up with the patient. This morning I discussed plan with patient, his daughters and other family members. At the time of discharge I am prescribing levofloxacin9 Post obstructive PNA) and nicotine patch. Side effects and indications of about briefly discussed at length. At the time of discharge patient does not have any question, concerns, update our recommendations. - Time Spent with Patient Total time spent providing and/or coordinating discharge services: - Constitutional Vitals: Temp Pulse Resp BP Pulse Ox 98.1 F 82 18 135/86 98 08/14/16 07:19 08/14/16 07:19 08/14/16 07:19 08/14/16 07:19 08/14/16 04:38 General appearance: Present: A&O X 3, pleasant, no acute distress - Head Head exam: Present: atraumatic, normocephalic - Eye Eye exam: Present: PERRL, conjuntiva pink, sclera anicteric Pupils: Present: PERRL - Neck Neck exam general surgery: Present: supple, trachea midline. Absent: lymphadenopathy - Respiratory Respiratory exam: Present: CTAB. Absent: accessory muscle use, rales, rhonchi, wheezes - Cardiovascular Cardiovascular exam: Present: RRR, +S1, +S2. Absent: diastolic murmur, gallop, rubs, systolic murmur - GI/Abdominal GI/Abdominal exam: Present: normal bowel sounds, soft, no peritoneal signs. Absent: distended, tenderness - Extremities Exam Extremities exam: Present: warm, radial pulses palpable and symetrical. Absent : calf tenderness, cyanotic, pedal edema - Neurological Exam Neurological exam: Present: CN II-XII intact, oriented X3, no focal deficits. Absent: pronater drift, facial droop, speech deficit - Skin Skin exam: Present: dry, intact - VTE Documentation of Mechanical Device: Graduated compression elastic hosiery
== END 2016-08-14 12:05 | disposition home or self-care (01) ==
LOC: 2NENU 14:47 → EMEROO 14:47 → 2NENU 17:35
PROVIDERS: ADMIT Internal Medicine; ATTEND Internal Medicine
PROC: ENDOBBX (2016-08-13 12:00)

== ENCOUNTER 2016-12-24 19:01 | Inpatient (IN) ==
[2016-12-24] MEDS ORDERED: Nitroglycerin 0.4 MG TAB.SUBL SL ONE (19:43)
[2016-12-24] MEDS ORDERED: Aspirin 81 MG TAB.CHEW PO ONE (19:43)
--- NOTE | 2016-12-24 19:47 | Emergency Department Note ---
Disposition Clinical Impression: HCAP (healthcare-associated pneumonia), Lactic acidosis Chest pain Qualifiers: Chest pain type: unspecified Qualified Code(s): R07.9 - Chest pain, unspecified Disposition: Admitted As Inpatient Condition: Fair Chest Pain HPI - General Chief Complaint: ED Chest Pain Stated Complaint: CP/Left arm pain 2 hrs Time Seen by Provider: 12/24/16 19:15 Source: patient, family Mode of arrival: private vehicle Limitations: no limitations Vital Signs Reviewed: Yes Nursing Notes Reviewed: Yes - History of Present Illness HPI Narrative: 66-year-old male history of lung cancer recently on chemotherapy and radiation roughly 1 month ago who presents to the ER due to chest pain. Patient states roughly 2 hours prior to arrival he developed sternal chest pain that radiated into both arms. He reports he was at rest when this happened. No history of chest pain in the past. Denies history of CAD, PE or DVT. He reports mild shortness of breath associated with this. He did not take any medication prior to arrival. He denies nausea vomiting or diarrhea. No other complaints. Pt complaint: chest pain Onset (ago): hour(s) Duration: constant Onset: during rest Pain Location: substernal Severity: moderate Severity scale (1-10): 7 Quality: aching Pain Radiation: RUE, LUE Improves with: nothing Worsens with: nothing Associated symptoms: Reports: dyspnea. Denies: nausea, vomiting, diaphoresis Treatments prior to arrival chest pain: none - Related Data Home Medications Medication Instructions Recorded Confirmed Albuterol Sulfate [Ventolin Hfa] 2 puff IH Q6H PRN 09/04/16 12/24/16 Doxycycline Hyclate 100 mg PO BID 12/24/16 12/24/16 Dronabinol [Marinol] 5 mg PO BID 12/24/16 12/24/16 Guaifen/Phenyleph/Acetaminophn 20 ml PO Q4H PRN 12/24/16 12/24/16 [Mucinex Sinus-Max Severe Liq] Mirtazapine [Remeron] 15 mg PO 1800 12/24/16 12/24/16 Potassium Chloride [K-Tab ER] 20 meq PO DAILY 12/24/16 12/24/16 Thiamine Mononitrate [Vitamin B-1] 100 mg PO DAILY 12/24/16 12/24/16 predniSONE [PredniSONE] 40 mg PO BIDWM 12/24/16 12/24/16 Previous Rx's Medication Instructions Recorded Oxycodone HCl/Acetaminophen 1 each PO Q6H PRN #60 tablet 08/19/16 [Percocet 7.5-325 mg Tablet] Nicotine Patch [Nicoderm] 14 mg TD DAILY #30 patch.td24 09/07/16 LORazepam [Ativan] 1 tab PO QID PRN #30 tablet 09/11/16 Loperamide [Imodium] 2 mg PO AD PRN #30 capsule 09/11/16 Magic Mouthwash 5 ml PO Q4H PRN #240 ml 09/11/16 Omeprazole [PriLOSEC] 20 mg PO DAILY #30 cap 09/11/16 Ondansetron HCl [Zofran] 4 mg PO Q6H PRN #20 tablet 09/11/16 Prochlorperazine Maleate 10 mg PO Q6HR PRN #30 tablet 09/11/16 [Compazine] Allergies Allergy/AdvReac Type Severity Reaction Status Date / Time No Known Allergies Allergy Verified 08/19/16 16:42 All systems ED: reviewed and negative except as stated. Constitutional: Reports: fever (Subjective), chills Cardiovascular: Reports: chest pain Respiratory: Reports: cough, dyspnea Gastrointestinal: Denies: abdominal pain, nausea, vomiting, diarrhea Musculoskeletal: Denies: back pain, neck pain Chest Pain PMH - Past Medical History Medical history: Reports: cancer, other Surgical history: Reports: non-contributory Psychiatric history: Reports: no psych history - Social History Smoking Status: Former smoker Alcohol use: Reports: heavy Drug use: Reports: none Physical Exam - General Limitations: no limitations General appearance: alert, in no apparent distress - Head Head exam: atraumatic, normocephalic, normal inspection - Eye Eye exam: Present: normal appearance, EOMI - ENT ENT exam: normal exam - Neck Neck exam: Present: normal inspection, full ROM - Chest Chest inspection: Present: normal inspection, symmetric chest wall rise, tenderness (There is some reproducible tenderness over the sternum.) - Respiratory Respiratory exam: Present: normal lung sounds bilaterally - Cardiovascular Cardiovascular exam: Present: regular rate, normal rhythm, normal heart sounds - Abdominal Exam Abdominal exam: Present: soft, Non-Tender. Absent: tenderness - Extremities Exam Extremities exam: Present: normal inspection, full ROM - Expanded Upper Extremity Exam Shoulder exam: Present: normal inspection, full ROM Arm exam: Present: normal inspection, full ROM Elbow exam: Present: normal inspection, full ROM Forearm/Wrist exam: Present: normal inspection, full ROM Hand exam: Present: normal inspection, full ROM Vascular exam: Normal: radial pulse - Expanded Lower Extremity Exam Hip/Pelvis exam: Present: normal inspection, full ROM Upper leg exam: Present: normal inspection, full ROM Knee exam: Present: normal inspection, full ROM Lower leg exam: Present: normal inspection, full ROM Ankle exam: Present: normal inspection, full ROM Foot/toe exam: Present: normal inspection, full ROM Neurovascular/Tendon exam: Absent: motor deficit, sensory deficit - Neurological Exam Neurological exam: Present: alert, other (GCS 15. Nonfocal neurologic exam.) - Psychiatric Psychiatric exam: Present: normal affect, normal mood - Skin Skin exam: Present: warm, dry, intact, normal color Course Course Narrative: Patient seen and examined. We will obtain an EKG, chest x-ray as well as labs including troponin and BNP. We will give him a dose of aspirin here and nitroglycerin and reassess. - Reevaluation(s) Reevaluation #1: Discussed results of imaging and lab work with the patient. His chest x-ray demonstrates a new upper lobe infiltrate. He is afebrile here with normal white count. We will cover him with healthcare associated pneumonia antibiotics , obtain blood cultures and admit to the hospitalist for chest pain and HCAP. Vital Signs Temperature 0 F L 12/24/16 19:06 Pulse Rate 70 12/24/16 19:06 Respiratory Rate 18 12/24/16 19:06 Blood Pressure 129/90 12/24/16 19:06 O2 Sat by Pulse Oximetry 87 12/24/16 19:06 Temperature 0 F L 12/24/16 19:06 Pulse Rate 85 12/24/16 21:31 Respiratory Rate 18 12/24/16 21:31 Blood Pressure 117/91 12/24/16 21:31 O2 Sat by Pulse Oximetry 100 12/24/16 21:31 Oxygen Delivery Oxygen Delivery Room Air Chest Pain - MDM Narrative Medical decision making narrative: 66-year-old male presents to the ER due to chest pain and started roughly 2 hours prior to arrival. Reports some redness of breath as well with cough at home. Subjective fevers and chills. He is afebrile here. White count is 6. Chest x-ray demonstrates a right upper lobe opacification concerning for pneumonia. He last had chemotherapy 4 weeks ago. We will obtain blood cultures and treat him empirically for healthcare associated pneumonia. Patient admitted to the hospitalist service for chest pain and healthcare associated pneumonia. I examined this patient and my medical decision-making was reviewed with the Resident Physician. I agree with the documented findings, disposition and treatment plan as described except to the extent set forth below. Patient seen today by Dr. Mora and myself, I agree with his evaluation and management plan, supervising care the patient's stay. Patient presents today with chest pain that started a few hours prior to arrival. History of lung cancer. No history of pulmonary embolism. Were going to do a workup for cardiac and pulmonary causes of his pain. We will try to make him more comfortable and then reassess. He most likely will need admission. He is in agreement with this plan. Chest X-Ray 12/24/16 19:17 IMPRESSION: New patchy opacity right upper lung zone, concerning for pneumonia. Findings suspicious for left upper lobe atelectasis. D/ / Neil Grider MD / Neil Grider MD Interpreting Provider: Neil Grider MD Antibiotics are started patient's admitted to the hospitalist service. - Lab Data Lab results reviewed: Yes I reviewed the patient's lab results. Result diagrams: 12/24/16 19:59 12/24/16 19:59 Lab Results 12/24/16 12/24/16 12/24/16 Range/Units 19:59 19:59 19:59 WBC 6.0 (4.3-11.1) K/mcL RBC 3.75 L (4.19-5.50) M/mcL Hgb 10.4 L (12.9-16.9) g/dL Hct 34.1 L (37.5-50.1) % MCV 90.9 (83.0-100.0) fL MCH 27.7 L (28.0-33.3) pg MCHC 30.5 L (31.6-35.5) g/dL RDW 18.5 H (11.5-14.5) % Plt Count 274 (140-400) K/mcL MPV 9.5 (9.4-12.4) fL Immature Gran % 0.7 (0-4) % Seg Neutrophils % 78.2 % Lymphocytes % 17.6 % Monocytes % 3.5 % Eosinophils % 0.0 % Basophils % 0.0 % Neutrophils # 4.7 (1.6-8.9) K/mcL Lymphocytes # 1.1 (0.6-4.6) K/mcL Monocytes # 0.2 (0.0-1.3) K/mcL Eosinophils # 0.0 (0.0-0.6) K/mcL Basophils # 0.0 (0.0-0.2) K/mcL Sodium 134 L (136-145) mEq/L Potassium 3.6 (3.5-4.5) mEq/L Chloride 94 L (98-109) mEq/L Carbon Dioxide 27 (19-29) mEq/L BUN 19 (8-26) mg/dL Creatinine 0.67 L (0.72-1.25) mg/dL Est GFR ( Amer) > 60 (> 60) Est GFR (Non-Af Amer) > 60 (> 60) BUN/Creatinine Ratio 28 H (6-26) Glucose 121 H (70-99) mg/dL Calculated Osmolality 282 (280-300) Lactic Acid (0.5-2.2) mmol/L Calcium 9.4 (8.6-10.8) mg/dL Troponin I 0.03 (0-0.03) ng/mL Specimen Rejected 12/24/16 12/24/16 Range/Units 20:01 20:30 WBC (4.3-11.1) K/mcL RBC (4.19-5.50) M/mcL Hgb (12.9-16.9) g/dL Hct (37.5-50.1) % MCV (83.0-100.0) fL MCH (28.0-33.3) pg MCHC (31.6-35.5) g/dL RDW (11.5-14.5) % Plt Count (140-400) K/mcL MPV (9.4-12.4) fL Immature Gran % (0-4) % Seg Neutrophils % % Lymphocytes % % Monocytes % % Eosinophils % % Basophils % % Neutrophils # (1.6-8.9) K/mcL Lymphocytes # (0.6-4.6) K/mcL Monocytes # (0.0-1.3) K/mcL Eosinophils # (0.0-0.6) K/mcL Basophils # (0.0-0.2) K/mcL Sodium (136-145) mEq/L Potassium (3.5-4.5) mEq/L Chloride (98-109) mEq/L Carbon Dioxide (19-29) mEq/L BUN (8-26) mg/dL Creatinine (0.72-1.25) mg/dL Est GFR ( Amer) (> 60) Est GFR (Non-Af Amer) (> 60) BUN/Creatinine Ratio (6-26) Glucose (70-99) mg/dL Calculated Osmolality (280-300) Lactic Acid 4.1 H* (0.5-2.2) mmol/L Calcium (8.6-10.8) mg/dL Troponin I (0-0.03) ng/mL Specimen Rejected Volume - Radiology Data Radiology results reviewed: Yes I reviewed the patient's radiology results. Chest X-Ray 12/24/16 19:17 IMPRESSION: New patchy opacity right upper lung zone, concerning for pneumonia. Findings suspicious for left upper lobe atelectasis. D/ / Neil Grider MD / Neil Grider MD Interpreting Provider: Neil Grider MD - EKG Data EKG attestation: Yes I reviewed and interpreted this EKG. EKG results narrative: EKG demonstrates sinus rhythm with arrhythmia with a rate of 87 bpm. Normal axis. Normal intervals. T-wave flattening in the lateral leads. No gross ST elevations or depressions. No acute ischemic findings. Heart Score - Score History: Slightly Suspicious EKG: Non Specific repolarisation Disturbance Age: 45-65 Risk Factors: No risk factors known Troponin: Less than normal limit HEART Score Total: 2 S.B.A.R. - S.B.A.R. Situation: Demographics, MOA Background: Presenting Complaint, Relevant PMH, Meds, & Allergies Assessment: Vital Signs, Course and respsone to treatment, Exam Concerns, Patient/Family Expectation, Pertinant Lab Results, Outstanding Labs Recommendation: Barrier(s) to disposition, Recommendation based on pending studies, treatments, or consults Woody Report Given to: Dr. Tayo Mckay Repor Time: 21:07
[2016-12-24 20:09] LABS: Hematocrit 34.1 % (37.5-50.1); Hemoglobin 10.4 g/dL (12.9-16.9); Immature Granulocytes % 0.7 % (0-4); Lymphocytes # 1.1 K/mcL (0.6-4.6); Lymphocytes % 17.6 %; Mean Corpuscular HGB Conc 30.5 g/dL (31.6-35.5); Mean Corpuscular Hemoglobin 27.7 pg (28.0-33.3); Mean Corpuscular Volume 90.9 fL (83.0-100.0); Mean Platelet Volume 9.5 fL (9.4-12.4); Monocytes # 0.2 K/mcL (0.0-1.3); Monocytes % 3.5 %; Neutrophils # 4.7 K/mcL (1.6-8.9); Platelet Count 274 K/mcL (140-400); Red Blood Count 3.75 M/mcL (4.19-5.50); Red Cell Distribution Width 18.5 % (11.5-14.5); Segmented Neutrophils % 78.2 %
[2016-12-24 20:21] LABS: BUN/Creatinine Ratio 28 (6-26); Blood Urea Nitrogen 19 mg/dL (8-26); Calcium 9.4 mg/dL (8.6-10.8); Carbon Dioxide 27 mEq/L (19-29); Chloride 94 mEq/L (98-109); Glucose 121 mg/dL (70-99); Osmolality,Calculated 282 (280-300); Potassium 3.6 mEq/L (3.5-4.5); Sodium 134 mEq/L (136-145); eGFR For African Americans > 60 (> 60); eGFR For Non-African Americans > 60 (> 60)
[2016-12-24] MEDS ORDERED: Levofloxacin 750 MG/150 ML 750 MG/150 ML BAG IVPB ONE (20:41)
[2016-12-24] MEDS ORDERED: Vancomycin 500 MG in D5% in Water 250 ML IVPB ONE (20:41)
[2016-12-24] MEDS ORDERED: Piperacillin/Tazobactam 3.375 GM in D5% in Water (Mini-Bag+) 100 ML IVPB ONE (20:41)
[2016-12-24] MEDS ORDERED: 0.9 % Sodium Chloride 1,000 ML IVC ONE (20:48)
--- NOTE | 2016-12-24 22:31 | Internal Med History&Physical ---
Date of Encounter: 12/25/16 Time of Encounter: 22:35 Assessment and Plan (1) Severe sepsis Current visit: Yes Status: Acute Severe sepsis likely given patient elevated lactic acid, hypothermia, and recent chemo potentially making a WBC response limited. Likely source of infection from HAP. Patient received ~1500 ml NS bolus continued on NS at 100 ml/hr Start Vancomycin and Zosyn blood cultures pending Breathing treatments prn Supplemental oxygen as needed tylenol for fever Patient started 5 day course of prednisone on 12/22/16 and will continue Continue telemetry and continuous pulse ox (2) HCAP (healthcare-associated pneumonia) Current visit: Yes Status: Acute Patient has extensive smoking history as well as diagnosis of squamous cell lung cancer. His last round of chemo was 3 weeks ago. CXR was concerning for pneumonia in the upper left lobe. CTA was performed but has not been read as of this point. Given patient's extensive exposure to the healthcare system recently , will treat pneumonia as Healthcare acquired penumonia. plan as above (3) Chest pain Current visit: Yes Status: Acute Patient reports chest pain that radiated to left arm that started earlier in the day. He was made worse by walking and describes substernal 7/10 in severity. Described as an ache with associated shortness of breath and hand tingling. EKG showed no ischemic change. Initial trop negative, follow up trop 0.11. Continue to trend troponins Obtain additional ECG Consider cardiology consultation, but elevated trops could be due to demand giving patient pneumonia Qualifiers: Chest pain type: unspecified Qualified Code(s): R07.9 - Chest pain, unspecified (4) Anemia Current visit: Yes Status: Acute Patient presents with a hemoglobin of 10.4 this is down from his previous known hemoglobin 13.5. Recheck showed hemoglobin of 8.8, though this was after 1-2 L of IV fluids. Patient's anemia could be from his recent chemotherapy or cancer. Given the decline seen will obtain a fecal Hemoccult Recheck hemoglobin with morning labs Qualifiers: Anemia type: unspecified type Qualified Code(s): D64.9 - Anemia, unspecified (5) Squamous cell carcinoma of left lung Current visit: No Status: Acute Currently under the care of a oncologist at [facility]. He reports having had his last round of chemo about 3 weeks ago. (6) DVT prophylaxis Current visit: No Status: Acute Enoxaparin 40 mg SQ daily Internal Medicine - H&P: HPI Chief complaint: Chest pain and shortness of breath Admitted From: Home Plans for Post Hospital Care: Home History of present illness: Mr. Davenport is a 66 year old male with prior medical history of squamous cell lung cancer who presents to [facility] after onset of chest pain this afternoon. He reports that the chest pain started at 4-5 in the afternoon and is described as a constant ache. It was 7/10 in severity that was gone by the time he was seen. The pain is made worse by walking and better by rest and he denies ever having pain like this before. There is no nausea, diaphoresis, lightheadedness associated. He was however having increased shortness of breath while walking. Though, he does report he has had increased shortness of breath for the last 2 weeks that has had a associated cough that is productive for yellow/brown phlegm. This has been worsening in that time. Does report having some chills that began yesterday. Patient has a recent diagnosis of squamous cell lung cancer and is currently under the care of the [facility]. His last chemotherapy was 3 weeks ago and he had previously competed radiation of 6 weeks duration on 12/12/16. Past Med Surg Social Fam HX - Past Medical History Medical history: cancer, other Psychiatric history: no psych history - Past Surgical History Surgical History: non-contributory - Social History Smoking Status: Former smoker Smokeless Tobacco Status: No Alcohol use: heavy Drug use: none - Family History Mother Living Status: Hx Family Cancer: Yes Father Living Status: Hx Family Cancer: Yes Internal Medicine - H&P: Meds Oxycodone HCl/Acetaminophen [Percocet 7.5-325 mg Tablet] 1 each PO Q6H PRN #60 tablet 08/19/16 [Rx] Albuterol Sulfate [Ventolin Hfa] 2 puff IH Q6H PRN 09/04/16 [History] Nicotine Patch [Nicoderm] 14 mg TD DAILY #30 patch.td24 09/07/16 [Rx] LORazepam [Ativan] 1 tab PO QID PRN #30 tablet 09/11/16 [Rx] Loperamide [Imodium] 2 mg PO AD PRN #30 capsule 09/11/16 [Rx] Magic Mouthwash 5 ml PO Q4H PRN #240 ml 09/11/16 [Rx] Omeprazole [PriLOSEC] 20 mg PO DAILY #30 cap 09/11/16 [Rx] Ondansetron HCl [Zofran] 4 mg PO Q6H PRN #20 tablet 09/11/16 [Rx] Prochlorperazine Maleate [Compazine] 10 mg PO Q6HR PRN #30 tablet 09/11/16 [Rx] Doxycycline Hyclate 100 mg PO BID 12/24/16 [History] Dronabinol [Marinol] 5 mg PO BID 12/24/16 [History] Guaifen/Phenyleph/Acetaminophn [Mucinex Sinus-Max Severe Liq] 20 ml PO Q4H PRN 12/24/16 [History] Mirtazapine [Remeron] 15 mg PO 1800 12/24/16 [History] Potassium Chloride [K-Tab ER] 20 meq PO DAILY 12/24/16 [History] Thiamine Mononitrate [Vitamin B-1] 100 mg PO DAILY 12/24/16 [History] predniSONE [PredniSONE] 40 mg PO BIDWM 12/24/16 [History] 3 Allergy/AdvReac Type Severity Reaction Status Date / Time No Known Allergies Allergy Verified 08/19/16 16:42 Review of systems: Gen: Denies fever, reports chills, reports weightloss, reports weakness, denies fatigue CV: Reports chest pain as per history of present illness, denies palpitations Resp: Reports shortness of breath, denies pleuritic pain, reports cough productive of yellow/brown phlegm, denies wheeze GI: Denies nausea, denies vomiting, denies abdominal pain, denies constipation, reports diarrhea, denies hematochezia, denies melena Neuro: Denies headache, denies confusion, denies focal weakness, denies numbness , reports tingling in right hand, denies vision changes Skin: Denies bruising, denies rash : Denies flank pain, denies dysuria, denies hematuria - Constitutional Vitals: Temp Pulse Resp BP Pulse Ox 0 F L 78 16 119/84 99 12/24/16 19:06 12/24/16 22:13 12/24/16 22:19 12/24/16 22:19 12/24/16 22:13 Exam: General: Cooperative, pleasant, no acute distress, alert and oriented 3, answers questions appropriately, cachectic HEENT: Normocephalic, atraumatic, neck supple, trachea midline, Conjunctiva pink , sclera anicteric, cervical LAD present, PERRL, oral mucosa moist, no orophargeal erythema or exudates Respiratory: No accessory muscle usage, rhonchi/adventitious noise and right lower lobe, occasional wheeze, slight rales Cardiovascular: Regular rate and rhythm, S1 and S2 present, no murmurs/rubs/ gallops/clicks appreciated GI/abdominal: Nondistended, nontender, soft, normal bowel sounds, no peritoneal signs Extremities: No calf tenderness, noncyanotic, no pedal edema appreciated, warm, lower extremity pulses palpable and symmetrical, digital clubbing present Neurological: Alert and oriented 3, no facial droop, no focal deficits Skin: Dry, intact, normal color Internal Med - H&P Results - Labs CBC & Chem 7: 12/25/16 02:07 12/25/16 02:07
[2016-12-24] MEDS ORDERED: Acetaminophen 325 MG TABLET PO PRN (23:14)
[2016-12-24] MEDS ORDERED: Naloxone 0.4 MG/ML INJ IVP PRN (23:14)
[2016-12-24] MEDS ORDERED: *HR* Morphine 2 MG/ML SYRINGE IVP PRN (23:14)
[2016-12-24] MEDS ORDERED: Ondansetron 4 MG/2 ML VIAL IVP PRN (23:14)
[2016-12-24] MEDS ORDERED: Nitroglycerin 0.4 MG TAB.SUBL SL PRN (23:23)
[2016-12-24] MEDS ORDERED: Ipratropium/Albuterol Neb 3 ML IH PRN (23:24)
[2016-12-24] MEDS ORDERED: Vancomycin (wt based) 1,000 MG VIAL IVPB SCH (23:45)
--- NOTE | 2016-12-25 01:09 | Event Note ---
Date of Encounter: 12/25/16 Time of Encounter: 01:07 Patient seen and examined. Presents with chest pain, were ruled out acute coronary syndrome. He has no prior history of coronary disease. He also has healthcare associated pneumonia for which will be started on vancomycin and Zosyn. Patient looks pale, has 3 g hemoglobin dropped. Will start on IV Protonix. Stool for occult blood will be checked. He is full code
[2016-12-25] MEDS: Pantoprazole 40 MG VIAL IVP SCH ×2 (01:14→06:32)
[2016-12-25] MEDS: 0.9 % Sodium Chloride 1,000 ML IVC SCH ×5 (01:15→17:59)
[2016-12-25 02:15] LABS: Hematocrit 28.6 % (37.5-50.1); Immature Granulocytes % 0.6 % (0-4); Lymphocytes # 0.8 K/mcL (0.6-4.6); Mean Corpuscular HGB Conc 30.8 g/dL (31.6-35.5); Mean Corpuscular Hemoglobin 27.8 pg (28.0-33.3); Mean Corpuscular Volume 90.2 fL (83.0-100.0); Mean Platelet Volume 9.3 fL (9.4-12.4); Monocytes # 0.2 K/mcL (0.0-1.3); Monocytes % 4.4 %; Neutrophils # 4.2 K/mcL (1.6-8.9); Platelet Count 213 K/mcL (140-400); Red Blood Count 3.17 M/mcL (4.19-5.50); Red Cell Distribution Width 17.8 % (11.5-14.5)
[2016-12-25 02:16] LABS: Hemoglobin 8.8 g/dL (12.9-16.9)
[2016-12-25 02:28] LABS: BUN/Creatinine Ratio 29 (6-26); Blood Urea Nitrogen 17 mg/dL (8-26); Calcium 8.3 mg/dL (8.6-10.8); Carbon Dioxide 25 mEq/L (19-29); Chloride 100 mEq/L (98-109); Chol/HDL Ratio 5.8 (0-4.9); Cholesterol 152 mg/dL (< 200); Glucose 141 mg/dL (70-99); HDL Cholesterol 26 mg/dL (40-59); LDL Cholesterol,Calculated 88 mg/dL (0-99); Magnesium 1.1 mg/dL (1.6-2.6); Osmolality,Calculated 286 (280-300); Phosphorous 2.5 mg/dL (2.3-4.7); Potassium 3.6 mEq/L (3.5-4.5); Sodium 136 mEq/L (136-145); Triglycerides 189 mg/dL (< 150); eGFR For African Americans > 60 (> 60); eGFR For Non-African Americans > 60 (> 60)
[2016-12-25] MEDS ORDERED: Magnesium Sulfate 2 GM in D5% in Water 100 ML IVPB ONE (02:58)
[2016-12-25] MEDS ORDERED: MUCINEX SINUS MAX PO PRN (04:25)
[2016-12-25] MEDS: Piperacillin/Tazobactam 3.375 GM in D5% in Water (Mini-Bag+) 100 ML IVPB SCH ×3 (06:32→22:09)
[2016-12-25] MEDS ORDERED: *HR* Enoxaparin 40 MG/0.4 ML SYRINGE SQ SCH (07:00)
--- NOTE | 2016-12-25 08:09 | Internal Med Progress Note ---
<Grace Ellis - Last Filed: 12/25/16 17:58> Date of Encounter: 12/25/16 Time of Encounter: 08:09 - Assessment and plan (1) HCAP (healthcare-associated pneumonia) Current Visit: Yes Status: Acute Assessment and plan: SOB likely 2/2 to HCAP CXR demonstrated new patchy opacity in right upper long zone, concerning for pneumonia. Pt on Vancomycin and Zosyn Supplemental oxygen of 2 L, Sat 100% (2) Chest pain Current Visit: Yes Status: Acute Assessment and plan: Troponin 0.03, 0.12. Continue to trend troponin EKG showed no ischemic change Qualifiers: Chest pain type: unspecified Qualified Code(s): R07.9 - Chest pain, unspecified (3) Anemia Current Visit: Yes Status: Acute Assessment and plan: Follow with H/H Per nurse in AM - fecal Hemoccult pending Qualifiers: Anemia type: unspecified type Qualified Code(s): D64.9 - Anemia, unspecified (4) Severe sepsis Current Visit: Yes Status: Acute Assessment and plan: Lactic acid downtrending from 4.1 to 2.7 Continue management (5) Squamous cell carcinoma of left lung Current Visit: No Status: Acute Assessment and plan: Cough associated to malignancy Per family, pt has follow up appt next with Heme/Onc team Patient started 5 day course of prednisone on 12/22/16 and will continue (Day 2/5 ) Continuing home meds for maintenance Added Dextromethorphan 30 mg PO Q12H PRN (6) Hypomagnesemia Current Visit: Yes Status: Acute Assessment and plan: Pt received MgSulfate 2 mg this morning Repeat Mg for AM (7) DVT prophylaxis Current Visit: No Status: Acute Assessment and plan: Intermittent compression devices - Subjective Interval history: AM . Cooperative patient presenting with non productive cough. Endorsed general weakness. Stated he would like something to stop the cough. PM: Visited pt with attending. Patient's daughter was present. Discussed patient's current pneumonia and treatment plan. - Constitutional Vitals: Temp Pulse Resp BP Pulse Ox 96.7 F L 83 24 109/76 100 12/25/16 07:02 12/25/16 07:02 12/25/16 07:02 12/25/16 07:02 12/25/16 07:02 General appearance: Present: cachectic, cooperative, A&O X 3, answers questions appropriately - Head Head exam: Present: atraumatic ( ), normocephalic - Respiratory Respiratory exam: Present: accessory muscle use (cough present during exam ), decreased breath sounds. Absent: chest wall tenderness - Cardiovascular Cardiovascular exam: Present: RRR, +S1, +S2 - GI/Abdominal GI/Abdominal exam: Present: normal bowel sounds, soft, no peritoneal signs. Absent: distended, tenderness - Expanded Lower Extremities Exam Lower Leg exam: Absent: ecchymosis Neuro vascular tendon exam: Present: pallor Internal Medicine: Result - Labs CBC & Chem 7: 12/25/16 02:07 12/25/16 02:07 Consult Discharge Plan - Plan Referrals: Jose Enrique Vela MD [Non-Partnered Physician] - 12/31/16 10:15 am <Tim Singh - Last Filed: 12/25/16 18:41> Date of Encounter: 12/25/16 - Assessment and plan (1) Acute respiratory failure with hypoxia Current Visit: Yes Status: Acute (2) Pneumonia Current Visit: Yes Status: Acute Qualifiers: Pneumonia type: due to other aerobic Gram-negative bacteria Laterality: left Lung location: upper lobe of lung Qualified Code(s): J15.6 - Pneumonia due to other aerobic Gram-negative bacteria (3) Squamous cell carcinoma of left lung Current Visit: No Status: Acute (4) Hypomagnesemia Current Visit: Yes Status: Acute (5) Anemia Current Visit: Yes Status: Acute Qualifiers: Anemia type: other cause Other causes of anemia: chronic disease, neoplastic Qualified Code(s): D63.0 - Anemia in neoplastic disease (6) Alcohol abuse Current Visit: No Status: Acute - Constitutional Vitals: Temp Pulse Resp BP Pulse Ox 97.4 F L 87 22 107/73 100 12/25/16 15:58 12/25/16 15:58 12/25/16 15:58 12/25/16 15:58 12/25/16 15:58 Internal Medicine: Result - Labs CBC & Chem 7: 12/25/16 02:07 12/25/16 02:07 Labs: Cardiac Enzymes 12/25/16 Range/Units 07:47 Troponin I 0.12 H* (0-0.03) ng/mL - Impressions Impressions Chest X-Ray 12/25/16 03:20 IMPRESSION: Thick-walled cavitary lesion within the left mid lung with patchy opacification within the lungs bilaterally. Please refer to the CTA for further evaluation. D/ / Shreyas Cordero MD / Shreyas Cordero MD Interpreting Provider: Shreyas Cordero MD - Attending Attestation I examined this patient and my medical decision-making was reviewed with the Resident Physician on 12/25/16. I agree with the documented findings, disposition and treatment plan as described except to the extent set forth below. Mr Davenport is currently admitted for hypoxia and pneumonia. He remains moderate to high risk due to potential for worsening respiratory status. Mr. Davenport is doing OK. He is breathing OK at this time. No fever or chills. No GI issues. Exam Alert. Comfortable Cachetic. No muscle mass Temporal wasting Heart reg Scattered rhonchi Abd soft No edema I/P 1. Pneumonia 2. Malnutrition Further diagnoses and plan as above.
[2016-12-25] MEDS: Vancomycin 750 MG in D5% in Water 250 ML IVPB SCH ×2 (09:16→21:24)
[2016-12-25] MEDS: predniSONE 20 MG TABLET PO SCH ×2 (09:17→17:36)
[2016-12-25] MEDS: Thiamine (B-1) 100 MG TABLET PO SCH (09:17)
[2016-12-25] MEDS ORDERED: Dextromethorphan Polistrx(12h) 30 MG/5 ML UDC PO PRN (10:51)
[2016-12-25] MEDS ORDERED: Lidocaine -MPF 1% 5 ML AMPUL INFILT ONE (14:56)
--- NOTE | 2016-12-25 15:44 | Electrocardiograph Report ---
[address] [place], [place] [address] Test Date: 2016-12-25 Pat Name: Mikie Davenport Department: [id number] Room: 2A Gender: M [employer] Selling Agent: : 1950 Requested By: Isrrael Pereira Order Number: [id number] Reading MD: Aaliyah Davenport Measurements Intervals [place] Rate: 81 P: 96 [place]: 174 QRS: 75 QRSD: 94 T: 128 QT: 436 QTc: 473 Interpretive Statements SINUS RHYTHM LOW QRS VOLTAGE IN EXTREMITY LEADS SEPTAL MYOCARDIAL INFARCTION, OF INDETERMINATE AGE MODERATE T-WAVE ABNORMALITY, CONSIDER ANTERIOR ISCHEMIA Electronically Signed On 12-25-2016 15:42:45 EDT by Aaliyah Davenport
[2016-12-25] MEDS: Mirtazapine 15 MG TABLET PO SCH (17:36)
[2016-12-26] MEDS: 0.9 % Sodium Chloride 1,000 ML IVC SCH ×3 (01:19→17:08)
[2016-12-26 03:48] LABS: Hematocrit 26.2 % (37.5-50.1); Hemoglobin 8.2 g/dL (12.9-16.9); Immature Granulocytes % 0.6 % (0-4); Lymphocytes # 0.6 K/mcL (0.6-4.6); Lymphocytes % 18.5 %; Mean Corpuscular HGB Conc 31.3 g/dL (31.6-35.5); Mean Corpuscular Hemoglobin 28.1 pg (28.0-33.3); Mean Corpuscular Volume 89.7 fL (83.0-100.0); Mean Platelet Volume 9.3 fL (9.4-12.4); Monocytes # 0.1 K/mcL (0.0-1.3); Monocytes % 3.5 %; Neutrophils # 2.6 K/mcL (1.6-8.9); Platelet Count 212 K/mcL (140-400); Red Blood Count 2.92 M/mcL (4.19-5.50); Red Cell Distribution Width 18.2 % (11.5-14.5); Segmented Neutrophils % 77.4 %
[2016-12-26 04:01] LABS: BUN/Creatinine Ratio 17 (6-26); Blood Urea Nitrogen 10 mg/dL (8-26); Calcium 8.2 mg/dL (8.6-10.8); Carbon Dioxide 30 mEq/L (19-29); Chloride 101 mEq/L (98-109); Glucose 120 mg/dL (70-99); Magnesium 1.5 mg/dL (1.6-2.6); Osmolality,Calculated 286 (280-300); Potassium 3.2 mEq/L (3.5-4.5); Sodium 138 mEq/L (136-145); eGFR For African Americans > 60 (> 60); eGFR For Non-African Americans > 60 (> 60)
[2016-12-26] MEDS: Piperacillin/Tazobactam 3.375 GM in D5% in Water (Mini-Bag+) 100 ML IVPB SCH ×3 (05:36→22:10)
[2016-12-26] MEDS: predniSONE 20 MG TABLET PO SCH ×2 (08:19→16:19)
[2016-12-26] MEDS: Thiamine (B-1) 100 MG TABLET PO SCH (08:20)
[2016-12-26] MEDS: Vancomycin 750 MG in D5% in Water 250 ML IVPB SCH ×2 (08:20→20:37)
--- NOTE | 2016-12-26 16:17 | Internal Med Progress Note ---
Date of Encounter: 12/26/16 Time of Encounter: 10:45 - Assessment and plan (1) Acute respiratory failure with hypoxia Current Visit: Yes Status: Acute Assessment and plan: Seems to be doing OK at this time. Will continue to wean as able (2) Pneumonia Current Visit: Yes Status: Acute Assessment and plan: Slow improvement with current management. No fever. Continue IV abx. Qualifiers: Pneumonia type: due to other aerobic Gram-negative bacteria Laterality: left Lung location: upper lobe of lung Qualified Code(s): J15.6 - Pneumonia due to other aerobic Gram-negative bacteria (3) Squamous cell carcinoma of left lung Current Visit: No Status: Acute Assessment and plan: Cough associated to malignancy Per family, pt has follow up appt next week with Heme/Onc team Patient started 5 day course of prednisone on 12/22/16 and will continue (Day 3/5 ) Continuing home meds for maintenance Cough syrup changed today. Tessalon Perles added as well. (4) Hypomagnesemia Current Visit: Yes Status: Acute Assessment and plan: Replace again today. (5) Anemia Current Visit: Yes Status: Acute Assessment and plan: Fecal occult pending. Monitor H/H. Qualifiers: Anemia type: other cause Other causes of anemia: chronic disease, neoplastic Qualified Code(s): D63.0 - Anemia in neoplastic disease (6) Alcohol abuse Current Visit: No Status: Acute Assessment and plan: No issues at this time. (7) Protein-calorie malnutrition, severe Current Visit: Yes Status: Chronic Assessment and plan: Pt is cachetic with temporal wasting. BMI 15. - Subjective Interval history: Mr. Davenport is currently admitted for sepsis related to pneumonia. He remains moderate to high risk due to potential for worsening respiratory status. Mr. Davenport says he is feeling a little better today. No fever or chills. Breathing somewhat better. No abd pain. Eating some. Slept OK last night. - Constitutional Vitals: Temp Pulse Resp BP Pulse Ox 97.4 F L 88 16 114/83 100 12/26/16 12:02 12/26/16 12:02 12/26/16 12:02 12/26/16 12:02 12/26/16 12:02 General appearance: Present: cachectic, cooperative, A&O X 3, answers questions appropriately - Head Head exam: Present: normocephalic - Eye Eye exam: Present: EOMI, conjuntiva pink - ENT ENT exam: Present: mucous membranes dry - Respiratory Respiratory exam: Present: prolonged expiratory phase, rales, rhonchi - Cardiovascular Cardiovascular exam: Present: distant heart sounds, RRR - GI/Abdominal GI/Abdominal exam: Present: soft. Absent: tenderness - Extremities Exam Extremities exam: Present: warm. Absent: tenderness - Neurological Exam Neurological exam: Present: alert, oriented X3 - Skin Skin exam: Present: warm Additional comments: Ecchymoses present. Internal Medicine: Result - Labs CBC & Chem 7: 12/26/16 03:33 12/26/16 03:33 Labs: Short CBC 12/26/16 Range/Units 03:33 WBC 3.4 L (4.3-11.1) K/mcL Hgb 8.2 L (12.9-16.9) g/dL Hct 26.2 L (37.5-50.1) % Plt Count 212 (140-400) K/mcL Neutrophils # 2.6 (1.6-8.9) K/mcL BMP 12/26/16 03:33 Sodium 138 Potassium 3.2 L Chloride 101 Carbon Dioxide 30 H BUN 10 Creatinine 0.59 L Glucose 120 H Calcium 8.2 L Consult Discharge Plan - Plan Referrals: Jose Enrique Vela MD [Non-Partnered Physician] - 12/31/16 10:15 am
[2016-12-26] MEDS: Mirtazapine 15 MG TABLET PO SCH (16:19)
[2016-12-26] MEDS ORDERED: Magnesium Sulfate 2 GM in D5% in Water 100 ML IVPB ONE (16:21)
[2016-12-27] MEDS: 0.9 % Sodium Chloride 1,000 ML IVC SCH ×2 (02:36→18:25)
[2016-12-27 04:20] LABS: Hematocrit 27.5 % (37.5-50.1); Hemoglobin 8.7 g/dL (12.9-16.9); Immature Granulocytes % 0.6 % (0-4); Lymphocytes # 0.9 K/mcL (0.6-4.6); Lymphocytes % 18.2 %; Mean Corpuscular HGB Conc 31.6 g/dL (31.6-35.5); Mean Corpuscular Hemoglobin 28.4 pg (28.0-33.3); Mean Corpuscular Volume 89.9 fL (83.0-100.0); Mean Platelet Volume 9.1 fL (9.4-12.4); Monocytes # 0.2 K/mcL (0.0-1.3); Monocytes % 4.1 %; Neutrophils # 3.8 K/mcL (1.6-8.9); Platelet Count 245 K/mcL (140-400); Red Blood Count 3.06 M/mcL (4.19-5.50); Red Cell Distribution Width 18.1 % (11.5-14.5); Segmented Neutrophils % 77.1 %
[2016-12-27 04:33] LABS: BUN/Creatinine Ratio 11 (6-26); Blood Urea Nitrogen 7 mg/dL (8-26); Calcium 8.1 mg/dL (8.6-10.8); Carbon Dioxide 28 mEq/L (19-29); Chloride 102 mEq/L (98-109); Glucose 104 mg/dL (70-99); Osmolality,Calculated 286 (280-300); Sodium 139 mEq/L (136-145); eGFR For African Americans > 60 (> 60); eGFR For Non-African Americans > 60 (> 60)
[2016-12-27] MEDS: Piperacillin/Tazobactam 3.375 GM in D5% in Water (Mini-Bag+) 100 ML IVPB SCH ×3 (05:44→21:06)
[2016-12-27] MEDS ORDERED: Potassium Chloride 20 MEQ, Lidocaine 1% 2 ML in D5% in Water 250 ML IVPB ONE (07:49)
[2016-12-27] MEDS: Thiamine (B-1) 100 MG TABLET PO SCH (08:40)
[2016-12-27] MEDS: predniSONE 20 MG TABLET PO SCH (08:41)
[2016-12-27] MEDS: Vancomycin 750 MG in D5% in Water 250 ML IVPB SCH ×2 (08:41→21:04)
[2016-12-27] MEDS ORDERED: Aminoglycoside Consult 1 EACH MC ONE (13:01)
--- NOTE | 2016-12-27 15:48 | Internal Med Progress Note ---
Date of Encounter: 12/27/16 Time of Encounter: 09:30 - Assessment and plan (1) Hypokalemia Current Visit: Yes Status: Acute Assessment and plan: Replete today. (2) Acute respiratory failure with hypoxia Current Visit: Yes Status: Acute Assessment and plan: Weaning as able. Remains stable today. (3) Pneumonia Current Visit: Yes Status: Acute Assessment and plan: On IV abx. Continues to slowly improve. Medications for cough ordered. Qualifiers: Pneumonia type: due to other aerobic Gram-negative bacteria Laterality: left Lung location: upper lobe of lung Qualified Code(s): J15.6 - Pneumonia due to other aerobic Gram-negative bacteria (4) Hypomagnesemia Current Visit: Yes Status: Acute Assessment and plan: Replace again today. (5) Squamous cell carcinoma of left lung Current Visit: No Status: Acute Assessment and plan: Cough associated to malignancy Per family, pt has follow up appt next week with Heme/Onc team Patient started 5 day course of prednisone on 12/22/16 and will continue (Day 4/5 ) PRN cough medication. (6) Anemia Current Visit: Yes Status: Acute Assessment and plan: Most likley related to cancer and chronic disease. Qualifiers: Anemia type: other cause Other causes of anemia: chronic disease, neoplastic Qualified Code(s): D63.0 - Anemia in neoplastic disease (7) Alcohol abuse Current Visit: No Status: Acute Assessment and plan: No issues at this time. (8) Protein-calorie malnutrition, severe Current Visit: Yes Status: Chronic Assessment and plan: Pt is cachetic with temporal wasting. BMI 15. - Subjective Interval history: Mr. Davenport is currently admitted for sepsis related to pneumonia. He remains moderate to high risk due to potential for worsening respiratory status. Mr. Davenport is eating better today. He feels his appetite has improved. Breathing is somewhat better. Still with a lot of cough - needs to ask for Tessalon. No fever or chills. - Constitutional Vitals: Temp Pulse Resp BP Pulse Ox 97.6 F 87 16 118/83 100 12/27/16 15:31 12/27/16 15:31 12/27/16 15:31 12/27/16 15:31 12/27/16 15:31 General appearance: Present: cachectic, cooperative, A&O X 3, answers questions appropriately - Head Head exam: Present: normocephalic - Eye Eye exam: Present: EOMI, conjuntiva pink - ENT ENT exam: Present: mucous membranes dry - Respiratory Respiratory exam: Present: rhonchi, wheezes. Absent: tachypnea - Cardiovascular Cardiovascular exam: Present: RRR. Absent: tachycardia - GI/Abdominal GI/Abdominal exam: Present: soft. Absent: tenderness - Extremities Exam Extremities exam: Present: warm. Absent: tenderness - Neurological Exam Neurological exam: Present: alert, oriented X3. Absent: facial droop - Skin Skin exam: Present: dry, warm. Absent: erythema, rash Internal Medicine: Result - Labs CBC & Chem 7: 12/27/16 04:10 12/27/16 04:10 Labs: Short CBC 12/27/16 Range/Units 04:10 WBC 4.9 (4.3-11.1) K/mcL Hgb 8.7 L (12.9-16.9) g/dL Hct 27.5 L (37.5-50.1) % Plt Count 245 (140-400) K/mcL Neutrophils # 3.8 (1.6-8.9) K/mcL BMP 12/27/16 04:10 Sodium 139 Potassium 3.0 L Chloride 102 Carbon Dioxide 28 BUN 7 L Creatinine 0.62 L Glucose 104 H Calcium 8.1 L Consult Discharge Plan - Plan Referrals: Jose Enrique Vela MD [Non-Partnered Physician] - 12/31/16 10:15 am
[2016-12-27] MEDS: Mirtazapine 15 MG TABLET PO SCH (16:49)
[2016-12-28 03:52] LABS: Hematocrit 26.7 % (37.5-50.1); Hemoglobin 8.4 g/dL (12.9-16.9); Mean Corpuscular HGB Conc 31.5 g/dL (31.6-35.5); Mean Corpuscular Hemoglobin 28.3 pg (28.0-33.3); Mean Corpuscular Volume 89.9 fL (83.0-100.0); Mean Platelet Volume 9.1 fL (9.4-12.4); Platelet Count 216 K/mcL (140-400); Red Blood Count 2.97 M/mcL (4.19-5.50)
[2016-12-28 04:14] LABS: BUN/Creatinine Ratio 9 (6-26); Calcium 7.8 mg/dL (8.6-10.8); Carbon Dioxide 30 mEq/L (19-29); Chloride 103 mEq/L (98-109); Glucose 80 mg/dL (70-99); Magnesium 1.4 mg/dL (1.6-2.6); Osmolality,Calculated 286 (280-300); Potassium 2.9 mEq/L (3.5-4.5); Sodium 140 mEq/L (136-145); eGFR For African Americans > 60 (> 60); eGFR For Non-African Americans > 60 (> 60)
[2016-12-28 04:18] LABS: Blood Urea Nitrogen 5 mg/dL (8-26)
[2016-12-28] MEDS ORDERED: Magnesium Oxide 400 MG TABLET PO ONE (04:54)
[2016-12-28] MEDS: Piperacillin/Tazobactam 3.375 GM in D5% in Water (Mini-Bag+) 100 ML IVPB SCH ×3 (05:15→23:22)
[2016-12-28] MEDS: 0.9 % Sodium Chloride 1,000 ML IVC SCH ×2 (08:04→23:21)
[2016-12-28] MEDS: Vancomycin 750 MG in D5% in Water 250 ML IVPB SCH (08:05)
[2016-12-28] MEDS: Thiamine (B-1) 100 MG TABLET PO SCH (08:05)
--- NOTE | 2016-12-28 09:53 | Internal Med Progress Note ---
<Grace Ellis - Last Filed: 12/28/16 16:22> Date of Encounter: 12/28/16 Time of Encounter: 09:53 - Assessment and plan (1) HCAP (healthcare-associated pneumonia) Current Visit: Yes Status: Acute Assessment and plan: SOB likely 2/2 to HCAP CXR demonstrated new patchy opacity in right upper long zone, concerning for pneumonia. Pt on Vancomycin and Zosyn Medications for cough ordered. - adding Tessalon TID (2) Anemia Current Visit: Yes Status: Acute Assessment and plan: Most likley related to cancer and chronic disease. Qualifiers: Anemia type: other cause Other causes of anemia: chronic disease, neoplastic Qualified Code(s): D63.0 - Anemia in neoplastic disease (3) Severe sepsis Current Visit: Yes Status: Acute Assessment and plan: Continue management Pt on Abx (4) Squamous cell carcinoma of left lung Current Visit: No Status: Acute Assessment and plan: PT/OT seen patient, recommend home health PRN cough medication. (5) Hypomagnesemia Current Visit: Yes Status: Acute Assessment and plan: Replete (6) Hypokalemia Current Visit: Yes Status: Acute Assessment and plan: Replete today. (7) DVT prophylaxis Current Visit: No Status: Acute Assessment and plan: Intermittent compression devices (8) Protein-calorie malnutrition, severe Current Visit: Yes Status: Chronic Assessment and plan: Pt is cachetic with temporal wasting. BMI 15. - Subjective Interval history: AM . Cooperative. AOX 3. Continues to endorse cough. No hemoptysis. No N/V. - Constitutional Vitals: Temp Pulse Resp BP Pulse Ox 97.6 F 86 17 124/84 97 12/28/16 07:10 12/28/16 07:10 12/28/16 07:10 12/28/16 07:10 12/28/16 07:10 General appearance: Present: cachectic, cooperative, A&O X 3, answers questions appropriately - Head Head exam: Present: atraumatic, normocephalic - Respiratory Respiratory exam: Present: decreased breath sounds, CTAB. Absent: accessory muscle use, rales, respiratory distress, rhonchi, wheezes - Cardiovascular Cardiovascular exam: Present: distant heart sounds, +S1, +S2 - GI/Abdominal GI/Abdominal exam: Present: normal bowel sounds, soft, no peritoneal signs. Absent: distended, tenderness - Neurological Exam Neurological exam: Present: alert, no focal deficits Internal Medicine: Result - Labs CBC & Chem 7: 12/28/16 03:41 12/28/16 03:41 Labs: Short CBC 12/28/16 Range/Units 03:41 WBC 4.6 (4.3-11.1) K/mcL Hgb 8.4 L (12.9-16.9) g/dL Hct 26.7 L (37.5-50.1) % Plt Count 216 (140-400) K/mcL BMP 12/28/16 03:41 Sodium 140 Potassium 2.9 L Chloride 103 Carbon Dioxide 30 H BUN 5 L Creatinine 0.56 L Glucose 80 Calcium 7.8 L Consult Discharge Plan - Plan Referrals: Jose Enrique Vela MD [Non-Partnered Physician] - 12/31/16 10:15 am <Tim Singh - Last Filed: 12/28/16 17:10> Date of Encounter: 12/28/16 - Assessment and plan (1) Hypokalemia Current Visit: Yes Status: Acute (2) Acute respiratory failure with hypoxia Current Visit: Yes Status: Acute (3) Pneumonia Current Visit: Yes Status: Acute Qualifiers: Pneumonia type: due to other aerobic Gram-negative bacteria Laterality: left Lung location: upper lobe of lung Qualified Code(s): J15.6 - Pneumonia due to other aerobic Gram-negative bacteria (4) Hypomagnesemia Current Visit: Yes Status: Acute (5) Squamous cell carcinoma of left lung Current Visit: No Status: Acute (6) Anemia Current Visit: Yes Status: Acute Qualifiers: Anemia type: other cause Other causes of anemia: chronic disease, neoplastic Qualified Code(s): D63.0 - Anemia in neoplastic disease (7) Protein-calorie malnutrition, severe Current Visit: Yes Status: Chronic - Constitutional Vitals: Temp Pulse Resp BP Pulse Ox 97.7 F 92 18 111/75 100 12/28/16 15:48 12/28/16 15:48 12/28/16 15:48 12/28/16 15:48 12/28/16 15:48 Internal Medicine: Result - Labs CBC & Chem 7: 12/28/16 03:41 12/28/16 03:41 Labs: Short CBC 12/28/16 Range/Units 03:41 WBC 4.6 (4.3-11.1) K/mcL Hgb 8.4 L (12.9-16.9) g/dL Hct 26.7 L (37.5-50.1) % Plt Count 216 (140-400) K/mcL [facility] 12/28/16 03:41 Sodium 140 Potassium 2.9 L Chloride 103 Carbon Dioxide 30 H BUN 5 L Creatinine 0.56 L Glucose 80 Calcium 7.8 L - Attending Attestation I examined this patient and my medical decision-making was reviewed with the Resident Physician on 12/28/16. I agree with the documented findings, disposition and treatment plan as described except to the extent set forth below. Mr Davenport is currently admitted for hypoxia and pneumonia associated with lung cancer. He remains moderate to high risk due to potential for worsening respiratory status. Mr. Davenport is continuing to slowly improve. No fever or chills. Eating better. No pain. Cancelled oncology appt in [place] - wants to move his care to here in [place]. No GI issues. Exam Alert. Comfortable Mucus membranes moist Heart reg Decreased breath sounds with rhonchi Abd soft No edema I/P 1. Pneumonia 2. Lung cancer - consult onc here. Further diagnoses and plan as above.
--- NOTE | 2016-12-28 10:18 | Electrocardiograph Report ---
[address] [place] [address] Test Date: 2016-12-24 Pat Name: Mikie Davenport Department: 105 Room: 2A34 Gender: M [employer]: : 1950 Requested By: Nikolay Whitt Order Number: [id number] Reading MD: Rodger Ureña MD Measurements Intervals [place] Rate: 87 P: 64 KS: 170 QRS: 86 QRSD: 90 T: 91 QT: 340 QTc: 385 Interpretive Statements SINUS RHYTHM WITH SINUS ARRHYTHMIA SEPTAL MYOCARDIAL INFARCTION, PROBABLY OLD BASELINE ARTIFACT Electronically Signed On 12-28-2016 10:17:08 EDT by Rodger Ureña MD
[2016-12-28] MEDS ORDERED: Magnesium Sulfate 2 GM in D5% in Water 100 ML IVPB ONE (11:15)
[2016-12-28] MEDS ORDERED: *HR* OxyCODONE Immed Rel 5 MG TABLET PO PRN (11:15)
[2016-12-28] MEDS ORDERED: Benzonatate 100 MG CAPSULE PO PRN (13:41)
[2016-12-28] MEDS: Mirtazapine 15 MG TABLET PO SCH (16:28)
[2016-12-29 05:33] LABS: Hematocrit 26.9 % (37.5-50.1); Hemoglobin 8.3 g/dL (12.9-16.9); Immature Granulocytes % 0.8 % (0-4); Lymphocytes # 0.5 K/mcL (0.6-4.6); Lymphocytes % 13.2 %; Mean Corpuscular HGB Conc 30.9 g/dL (31.6-35.5); Mean Corpuscular Hemoglobin 27.8 pg (28.0-33.3); Monocytes # 0.2 K/mcL (0.0-1.3); Monocytes % 4.5 %; Neutrophils # 3.1 K/mcL (1.6-8.9); Platelet Count 208 K/mcL (140-400); Red Blood Count 2.99 M/mcL (4.19-5.50); Red Cell Distribution Width 18.3 % (11.5-14.5); Segmented Neutrophils % 81.5 %
[2016-12-29 05:52] LABS: Alanine Aminotransferase 10 Units/L (0-55); Albumin 1.9 g/dL (3.5-5.0); Albumin/Globulin Ratio 0.6 (1.1-2.2); Alkaline Phosphatase 39 Units/L (38-126); Aspartate Amino Transferase 18 Units/L (5-34); BUN/Creatinine Ratio 7 (6-26); Bilirubin,Total 0.6 mg/dL (0.2-1.2); Blood Urea Nitrogen 4 mg/dL (8-26); Calcium 7.7 mg/dL (8.6-10.8); Carbon Dioxide 32 mEq/L (19-29); Chloride 100 mEq/L (98-109); Globulin 3.1 g/dL (2.4-3.5); Glucose 71 mg/dL (70-99); Osmolality,Calculated 281 (280-300); Potassium 3.3 mEq/L (3.5-4.5); Sodium 138 mEq/L (136-145); eGFR For African Americans > 60 (> 60); eGFR For Non-African Americans > 60 (> 60)
[2016-12-29] MEDS: Piperacillin/Tazobactam 3.375 GM in D5% in Water (Mini-Bag+) 100 ML IVPB SCH ×3 (06:53→21:32)
[2016-12-29] MEDS: Thiamine (B-1) 100 MG TABLET PO SCH (07:51)
--- NOTE | 2016-12-29 09:06 | Oncology Inp Consult Note ---
Date of Encounter: 12/29/16 Time of Encounter: 08:51 Assessment and Plan (1) Squamous cell carcinoma of left lung Status: Acute Assessment and plan: - Patient reports currently actively being treated at [facility], with 2 chemotherapy treatments left. He is consider transferring his care to [facility] after completion of his chemotherapy treatments at [facility]. He could not remember the name of his primary oncologist or radiation Oncologist at [facility], but he was seen at our facility by Dr. Clark prior to start of chemoradiation on September 07, 2016. I personally review the imaging and report of hiis most recent CT scan from 12/25 does not show conclusive evidence of disease progression ( CT completed to rule out PE), but shows bilateral bronchial wall thickening, that is concerning for lymphangitic spread. - If he eventually decided to transfer his care here at [facility], please arrrange for a follow up at the outpatient oncology clinic with Dr. Hughes, ideally after completion of chemotherapy at [facility]. This would need to be confirmed with his daughter as discussed with the patient. (2) HCAP (healthcare-associated pneumonia) Status: Acute Assessment and plan: - Clinically seems to be improving with management with IV antibiotics ( zosyn and vancomycin). Management as per primary team. - Data of Consult Requesting Physician: Juan F Sanchez MD Primary Care Provider: PCP NONE - Consult Narrative Reason for consult: Management of stage IIIB squamous cell carcinoma History of present illness: Mr. 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 Oncology consult was requested upon patient's request to discuss option to transfer his care here to [facility]. He was seen at our Cancer Center by Stephon Hall CNP on 10/05/16 for genetic consultation and by Dr. Clark in September 07; at that time chemoradiation with weekly carboplatin AUC 2 and taxol 45 mg/2 was planned, along with radiation at our facility, however he elected to receive his treatments at the [facility]. He reports that he already completed his radiation treatments, but still have 2 chemotherapy treatments left. He expressed interest in completing his therapy at [facility] and then transferring his care here at [facility], but first he would like to speak with his daughter to confirm the decision to transfer his care. On 12/25/[address] chest to rule out PE ( due to shortness of breath); his CT showed not PE, but there were bilateral brochial thickening, concerning for lymphangitic spread of his cancer. He was admitted on 12/24 and reports significant improvement of his symptoms since then, currently being treated for HCAP with vanco and zosyn. Past Med Surg Social Fam HX - Past Medical History Medical history: cancer, other Psychiatric history: no psych history - Past Surgical History Surgical History: non-contributory - Social History Smoking Status: Former smoker Smokeless Tobacco Status: No Alcohol use: heavy Drug use: none - Family History Mother Living Status: Hx Family Cancer: Yes Father Living Status: Hx Family Cancer: Yes Medications and Allergies Oxycodone HCl/Acetaminophen [Percocet 7.5-325 mg Tablet] 1 each PO Q6H PRN #60 tablet 08/19/16 [Rx] Albuterol Sulfate [Ventolin Hfa] 2 puff IH Q6H PRN 09/04/16 [History] Nicotine Patch [Nicoderm] 14 mg TD DAILY #30 patch.td24 09/07/16 [Rx] LORazepam [Ativan] 1 tab PO QID PRN #30 tablet 09/11/16 [Rx] Loperamide [Imodium] 2 mg PO AD PRN #30 capsule 09/11/16 [Rx] Magic Mouthwash 5 ml PO Q4H PRN #240 ml 09/11/16 [Rx] Omeprazole [PriLOSEC] 20 mg PO DAILY #30 cap 09/11/16 [Rx] Ondansetron HCl [Zofran] 4 mg PO Q6H PRN #20 tablet 09/11/16 [Rx] Prochlorperazine Maleate [Compazine] 10 mg PO Q6HR PRN #30 tablet 09/11/16 [Rx] Doxycycline Hyclate 100 mg PO BID 12/24/16 [History] Dronabinol [Marinol] 5 mg PO BID 12/24/16 [History] Guaifen/Phenyleph/Acetaminophn [Mucinex Sinus-Max Severe Liq] 20 ml PO Q4H PRN 12/24/16 [History] Mirtazapine [Remeron] 15 mg PO 1800 12/24/16 [History] Potassium Chloride [K-Tab ER] 20 meq PO DAILY 12/24/16 [History] Thiamine Mononitrate [Vitamin B-1] 100 mg PO DAILY 12/24/16 [History] predniSONE [PredniSONE] 40 mg PO BIDWM 12/24/16 [History] 3 Allergy/AdvReac Type Severity Reaction Status Date / Time No Known Allergies Allergy Verified 08/19/16 16:42 Constitutional: Present: fatigue, malaise. Absent: frequent falls, headache(s) Eyes: Present: as per HPI. Absent: blurry vision Nose, mouth and throat: Absent: disequilibrium Cardiovascular: Present: dyspnea on exertion. Absent: chest pain Respiratory: Present: cough, dyspnea. Absent: pain on inspiration Gastrointestinal: Absent: abdominal pain, dyspepsia, nausea Musculoskeletal: Absent: arthralgias, back pain Integumentary: Absent: lesions, pruritus Neurological: Absent: abnormal speech, behavioral changes, disequilibrium Psychiatric: Absent: behavioral changes, confusion Endocrine: Present: fatigue Hematologic/Lymphatic: Present: as per HPI. Absent: easy bleeding Oncology - Exam - Constitutional Vitals: Temp Pulse Resp BP Pulse Ox 98.1 F 90 14 112/76 100 12/29/16 07:02 12/29/16 07:02 12/29/16 07:02 12/29/16 07:02 12/29/16 07:02 - Head Head exam: Present: normal inspection, normocephalic - Eye Eye exam: Present: EOMI, normal appearance - ENT ENT exam: Present: normal exam, normal oropharynx - Neck Neck exam: Present: normal inspection. Absent: lymphadenopathy - Respiratory Respiratory exam: Present: prolonged expiratory phase. Absent: rales, respiratory distress - Cardiovascular Cardiovascular exam: Present: RRR, +S1 - GI/Abdominal GI/Abdominal exam: Present: normal bowel sounds. Absent: hyperactive bowel sounds, organomegaly - Extremities Exam Extremities exam: Absent: normal inspection, pedal edema - Back Exam Back exam: Present: normal inspection - Neurological Exam Neurological exam: Present: alert, oriented X3 - Psychiatric Psychiatric exam: Present: normal affect, normal mood. Absent: anxious - Skin Skin exam: Present: normal color. Absent: petechiae Oncology - Results Labs: Short CBC 12/29/16 Range/Units 05:15 WBC 3.8 L (4.3-11.1) K/mcL Hgb 8.3 L (12.9-16.9) g/dL Hct 26.9 L (37.5-50.1) % Plt Count 208 (140-400) K/mcL Neutrophils # 3.1 (1.6-8.9) K/mcL BMP 12/29/16 05:15 Sodium 138 Potassium 3.3 L Chloride 100 Carbon Dioxide 32 H BUN 4 L Creatinine 0.55 L Glucose 71 Calcium 7.7 L Liver Function 12/29/16 Range/Units 05:15 Total Bilirubin 0.6 (0.2-1.2) mg/dL AST 18 (5-34) Units/L ALT 10 (0-55) Units/L Alkaline Phosphatase 39 (38-126) Units/L Albumin 1.9 L (3.5-5.0) g/dL Consult Discharge Plan - Plan Referrals: Jose Enrique Vela MD [Non-Partnered Physician] - 12/31/16 10:15 am
--- NOTE | 2016-12-29 09:20 | Internal Med Progress Note ---
Addendum entered and electronically signed by Grace Ellis MD 12/29/16 17:23: CXR for monitoring, pending. Original Note: <Grace Ellis - Last Filed: 12/29/16 17:12> Date of Encounter: 12/29/16 Time of Encounter: 09:18 - Assessment and plan (1) HCAP (healthcare-associated pneumonia) Current Visit: Yes Status: Acute Assessment and plan: SOB likely 2/2 to HCAP CXR demonstrated new patchy opacity in right upper long zone, concerning for pneumonia. Pt on Day 6 of Zosyn. Completed 5 days of Vanc, pharm rec for deescalation with no WBCs, no fevers. Cough s/p dextromethorphan PRN and tessalon PRN TID Spoke to RN. Per RN, pt not requesting cough medication despite ssx. (2) Squamous cell carcinoma of left lung Current Visit: No Status: Acute Assessment and plan: Mr. 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 S/p chemoradiation and remains 2 chemotherapy treatments left at [facility] 12/25/16 CT concerning for lymphangitic spread of his cancer. PT/OT - with recommendation for home health. Appreciate recs Oncology on consult, greatly appreciate recs Following family discussion regarding transfer, will arrange for a follow up at the outpatient oncology clinic with Dr. Hughes. (3) Severe sepsis Current Visit: Yes Status: Acute Assessment and plan: Continue management (4) Anemia Current Visit: Yes Status: Acute Assessment and plan: Most likely related to cancer and chronic disease. Qualifiers: Anemia type: other cause Other causes of anemia: chronic disease, neoplastic Qualified Code(s): D63.0 - Anemia in neoplastic disease (5) Hypomagnesemia Current Visit: Yes Status: Acute Assessment and plan: Replete prn Continue to trend Mg level (6) Hypokalemia Current Visit: Yes Status: Acute Assessment and plan: Replete today. (7) DVT prophylaxis Current Visit: No Status: Acute Assessment and plan: Intermittent compression devices Enoxoparin stopped on 12/25 2/2 to 3 pt drop Hgb Hgb stable since then (8) Protein-calorie malnutrition, severe Current Visit: Yes Status: Chronic Assessment and plan: Pt is cachetic with temporal wasting. BMI 15. - Subjective Interval history: AM : No acute events overnight. Cooperative. AOX 3. Continues to endorse cough. No hemoptysis. No N/V. - Constitutional Vitals: Temp Pulse Resp BP Pulse Ox 98.1 F 90 14 112/76 100 12/29/16 07:02 12/29/16 07:02 12/29/16 07:02 12/29/16 07:02 12/29/16 07:02 General appearance: Present: cachectic, cooperative, A&O X 3, answers questions appropriately - Respiratory Respiratory exam: Present: decreased breath sounds. Absent: chest wall tenderness, respiratory distress, wheezes - Cardiovascular Cardiovascular exam: Present: RRR, +S1, +S2 - GI/Abdominal GI/Abdominal exam: Present: normal bowel sounds, soft, no peritoneal signs. Absent: distended, tenderness Additional comments: very thin Internal Medicine: Result - Labs CBC & Chem 7: 12/29/16 05:15 12/29/16 05:15 Labs: Short CBC 12/29/16 Range/Units 05:15 WBC 3.8 L (4.3-11.1) K/mcL Hgb 8.3 L (12.9-16.9) g/dL Hct 26.9 L (37.5-50.1) % Plt Count 208 (140-400) K/mcL Neutrophils # 3.1 (1.6-8.9) K/mcL BMP 12/29/16 05:15 Sodium 138 Potassium 3.3 L Chloride 100 Carbon Dioxide 32 H BUN 4 L Creatinine 0.55 L Glucose 71 Calcium 7.7 L Liver Function 12/29/16 Range/Units 05:15 Total Bilirubin 0.6 (0.2-1.2) mg/dL AST 18 (5-34) Units/L ALT 10 (0-55) Units/L Alkaline Phosphatase 39 (38-126) Units/L Albumin 1.9 L (3.5-5.0) g/dL Consult Discharge Plan - Plan Referrals: Jose Enrique Vela MD [Non-Partnered Physician] - 12/31/16 10:15 am <Juna F Sanchez - Last Filed: 12/29/16 17:58> Date of Encounter: 12/29/16 - Constitutional Vitals: Temp Pulse Resp BP Pulse Ox 98.3 F 87 14 105/75 99 12/29/16 16:17 12/29/16 16:17 12/29/16 16:17 12/29/16 16:17 12/29/16 16:17 Internal Medicine: Result - Labs CBC & Chem 7: 12/29/16 05:15 12/29/16 05:15 Labs: Short CBC 12/29/16 Range/Units 05:15 WBC 3.8 L (4.3-11.1) K/mcL Hgb 8.3 L (12.9-16.9) g/dL Hct 26.9 L (37.5-50.1) % Plt Count 208 (140-400) K/mcL Neutrophils # 3.1 (1.6-8.9) K/mcL BMP 12/29/16 05:15 Sodium 138 Potassium 3.3 L Chloride 100 Carbon Dioxide 32 H BUN 4 L Creatinine 0.55 L Glucose 71 Calcium 7.7 L Liver Function 12/29/16 Range/Units 05:15 Total Bilirubin 0.6 (0.2-1.2) mg/dL AST 18 (5-34) Units/L ALT 10 (0-55) Units/L Alkaline Phosphatase 39 (38-126) Units/L Albumin 1.9 L (3.5-5.0) g/dL - Attending Attestation I examined this patient and my medical decision-making was reviewed with the Resident Physician. I agree with the documented findings, disposition and treatment plan as described except to the extent set forth below.
[2016-12-29] MEDS ORDERED: Magnesium Sulfate 2 GM in D5% in Water 100 ML IVPB ONE (11:27)
[2016-12-29] MEDS: 0.9 % Sodium Chloride 1,000 ML IVC SCH (13:57)
[2016-12-29] MEDS: Mirtazapine 15 MG TABLET PO SCH (17:27)
[2016-12-30] MEDS: 0.9 % Sodium Chloride 1,000 ML IVC SCH (03:18)
[2016-12-30] MEDS: Piperacillin/Tazobactam 3.375 GM in D5% in Water (Mini-Bag+) 100 ML IVPB SCH ×3 (05:16→21:57)
--- NOTE | 2016-12-30 06:22 | Discharge Summary ---
Date of Encounter: 12/30/16 Time of Encounter: 08:21 - Discharge Diagnosis (1) HCAP (healthcare-associated pneumonia) Status: Acute (2) Squamous cell carcinoma of left lung Status: Acute (3) Severe sepsis Status: Acute (4) Anemia Status: Acute Qualifiers: Anemia type: other cause Other causes of anemia: chronic disease, neoplastic Qualified Code(s): D63.0 - Anemia in neoplastic disease (5) Hypomagnesemia Status: Acute (6) Hypokalemia Status: Acute (7) DVT prophylaxis Status: Acute (8) Protein-calorie malnutrition, severe Status: Chronic - Discharge Medications Home Medications: Oxycodone HCl/Acetaminophen [Percocet 7.5-325 mg Tablet] 1 each PO Q6H PRN #60 tablet 08/19/16 [Rx] Albuterol Sulfate [Ventolin Hfa] 2 puff IH Q6H PRN 09/04/16 [History] Nicotine Patch [Nicoderm] 14 mg TD DAILY #30 patch.td24 09/07/16 [Rx] LORazepam [Ativan] 1 tab PO QID PRN #30 tablet 09/11/16 [Rx] Loperamide [Imodium] 2 mg PO AD PRN #30 capsule 09/11/16 [Rx] Magic Mouthwash 5 ml PO Q4H PRN #240 ml 09/11/16 [Rx] Omeprazole [PriLOSEC] 20 mg PO DAILY #30 cap 09/11/16 [Rx] Ondansetron HCl [Zofran] 4 mg PO Q6H PRN #20 tablet 09/11/16 [Rx] Prochlorperazine Maleate [Compazine] 10 mg PO Q6HR PRN #30 tablet 09/11/16 [Rx] Doxycycline Hyclate 100 mg PO BID 12/24/16 [History] Dronabinol [Marinol] 5 mg PO BID 12/24/16 [History] Guaifen/Phenyleph/Acetaminophn [Mucinex Sinus-Max Severe Liq] 20 ml PO Q4H PRN 12/24/16 [History] Mirtazapine [Remeron] 15 mg PO 1800 12/24/16 [History] Potassium Chloride [K-Tab ER] 20 meq PO DAILY 12/24/16 [History] Thiamine Mononitrate [Vitamin B-1] 100 mg PO DAILY 12/24/16 [History] predniSONE [PredniSONE] 40 mg PO BIDWM 12/24/16 [History] Allergies/Adverse Reactions: 3 Allergy/AdvReac Type Severity Reaction Status Date / Time No Known Allergies Allergy Verified 08/19/16 16:42 Date of admission: 12/25/16 02:43 Primary care physician: PCP NONE Consults: 12/25/16 10:45 Consult to Invasive Line Access Team [CONS] Routine Reason for Consult: IV antibiotics including vanc. poor vascular access Line Type: PICC 12/25/16 14:56 Consult to Invasive Line Access Team [CONS] Routine Reason for Consult: Picc Line Insertion Line Type: PICC 12/25/16 18:42 Consult to Health Care Coordinator [CONS] Routine Reason for SW Consult: home health service in place and will need to be continued 12/28/16 11:14 Consult to Physical Therapy [CONS] Routine Comment: Evaluate, develop and implement POC Reason for Consult: SCC 12/28/16 11:15 Consult to Occupational Therapy [CONS] Routine Comment: Evaluate, develop and implement POC Reason for Consult: SCC 12/29/16 08:20 Consult to Oncology [CONS] Routine Consulting Provider: On[facility] Reason for Consult: Squamous Cell Carcinoma Time Notified: 08:21 Call Completed: No Discharging clinician: Grace Ellis - Patient Status Condition: Fair - Discharge Instructions Follow Up With: Jose Enrique Vela MD [Non-Partnered Physician] - 12/31/16 10:15 am Interval History: No acute events overnight. Hospital course: Mr. Davenport is a 66 year old male - Time Spent with Patient Total time spent providing and/or coordinating discharge services: - Constitutional Vitals: Temp Pulse Resp BP Pulse Ox 97.9 F 88 16 104/70 100 12/30/16 05:22 12/30/16 05:22 12/30/16 05:22 12/30/16 05:22 12/30/16 05:22 General appearance: Present: cachectic, cooperative, A&O X 3, answers questions appropriately - VTE Documentation of Mechanical Device: Intermittent pneumatic compression device
--- NOTE | 2016-12-30 06:24 | Internal Med Progress Note ---
<Grace Ellis - Last Filed: 12/30/16 17:30> Date of Encounter: 12/30/16 Time of Encounter: 06:24 - Assessment and plan (1) HCAP (healthcare-associated pneumonia) Current Visit: Yes Status: Acute Assessment and plan: SOB likely 2/2 to HCAP CXR demonstrated new patchy opacity in right upper long zone, concerning for pneumonia. Pt on Day 7 of Zosyn. For cough, dextromethorphan PRN and tessalon PRN TID Spoke to RN yesterday. Per RN, pt not requesting cough medication despite ssx. (2) Squamous cell carcinoma of left lung Current Visit: No Status: Chronic Assessment and plan: Mr. 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 S/p chemoradiation and remains 2 chemotherapy treatments left at [facility] Following family discussion regarding transfer, will arrange for a follow up at the outpatient oncology clinic with Dr. Hughes. 12/25/16 CT concerning for lymphangitic spread of his cancer. 12/30/16 Follow-up CT concerning for malignant effusion Pulmonology on consult, appreciate rec Tentatively schedule for bronchoscopy tomorrow (3) Severe sepsis Current Visit: Yes Status: Acute Assessment and plan: Continue management (4) Anemia Current Visit: Yes Status: Acute Assessment and plan: Most likely related to stage IIIB squamous cell carcinoma and chronic disease. Qualifiers: Anemia type: other cause Other causes of anemia: chronic disease, neoplastic Qualified Code(s): D63.0 - Anemia in neoplastic disease (5) Hypomagnesemia Current Visit: Yes Status: Acute Assessment and plan: Repleted this AM Replete prn. Continue to trend Mg level (6) Hypokalemia Current Visit: Yes Status: Acute Assessment and plan: Replete today. (7) DVT prophylaxis Current Visit: No Status: Acute Assessment and plan: Intermittent compression devices Enoxoparin stopped on 12/25 2/2 to 3 pt drop Hgb.Hgb stable since then (8) Protein-calorie malnutrition, severe Current Visit: Yes Status: Chronic Assessment and plan: Pt is cachetic with temporal wasting. BMI 15. Supplemental oral diet - Subjective Interval history: AM: Pt states he is comfortable, was responsive in conversation. Resident MD explained pt had infection, he was amenable to follow up for CT. - Constitutional Vitals: Temp Pulse Resp BP Pulse Ox 97.9 F 88 16 104/70 100 12/30/16 05:22 12/30/16 05:22 12/30/16 05:22 12/30/16 05:22 12/30/16 05:22 General appearance: Present: cachectic, cooperative, A&O X 3, answers questions appropriately - Head Head exam: Present: atraumatic, normocephalic Additional comments: evident hair loss - Eye Eye exam: Present: EOMI. Absent: conjunctival injection - Respiratory Respiratory exam: Present: decreased breath sounds. Absent: chest wall tenderness, respiratory distress, tachypnea - Cardiovascular Cardiovascular exam: Present: distant heart sounds, +S1, +S2. Absent: tachycardia - GI/Abdominal GI/Abdominal exam: Present: diminished bowel sounds, soft. Absent: distended, guarding, tenderness Additional comments: protruding ribs - Expanded Lower Extremities Exam Lower Leg exam: Absent: erythema (senile purpura), tenderness (SCDs in place) Internal Medicine: Result - Labs CBC & Chem 7: 12/30/16 06:30 12/30/16 06:30 - Impressions Impressions Chest CTA 12/24/16 23:19 IMPRESSION: 1. No convincing evidence of a pulmonary embolus. 2. Development of a large cavitary, thick-walled lesion within the previously atelectatic left upper lobe. 3. Patchy areas of opacification within the left lower lobe with areas of either smaller cavitary lesions versus bronchiectasis. 4. Bronchial wall thickening is seen bilaterally with predominately centrilobular opacification involving the right upper and left lower lobes. Findings could represent lymphangitic spread of malignancy. 5. Left hilar adenopathy. D/ / Shreyas Cordero MD / Shreyas Cordero MD Interpreting Provider: Shreyas Cordero MD Chest X-Ray 12/29/16 17:21 IMPRESSION: Increasing left basilar airspace disease. Small left pleural effusion. Right upper extremity PICC tip projects over the SVC. D/ / Casper Robertson MD / Casper Robertson MD Interpreting Provider: Casper Robertson MD Chest CT 12/30/16 09:00 IMPRESSION: 1. Persistent though improved infectious bronchiolitis in the right upper and right lower lobes with near complete resolution in the left lower lobe. 2. Unchanged cavitary lesions with adjacent consolidative opacity in the superior segment of the left lower lobe, potentially cavitary pneumonia or metastatic disease. 3. Decreased size of a 6.9 cm x 4.3 cm cavitary lesion in the lingula with the cavity in direct indication with the left upper lobe bronchus. The finding corresponds with the biopsy-proven malignancy seen previously with superimposed infection possible. 4. Interlobular septal thickening in the aerated portions of the left upper lobe most likely represents edema from draining venous obstruction and/or partial aeration. Superimposed lymphangitic carcinomatosis is considered less likely. 5. Mwta-xx-mtgxlonw left lower lobe bronchial wall thickening with minimal to mild involvement in the right lung, suggestive of bronchitis given central airway secretions. 6. Unchanged appearance of metastatic left lower paratracheal and subcarinal lymph nodes. 7. Increased small loculated right pleural effusion. Malignant effusion is not excluded. 8. Increased small to moderate free-flowing right pleural effusion. At least trace ascites and mild anasarca. D/ / Channing Burnett MD / Channing Burnett MD Interpreting Provider: Channing Burnett MD - VTE Documentation of Mechanical Device: Intermittent pneumatic compression device Consult Discharge Plan - Plan Referrals: Jose Enrique Vela MD [Non-Partnered Physician] - 12/31/16 10:15 am <Juan F Sanchez P - Last Filed: 12/30/16 18:08> Date of Encounter: 12/30/16 - Constitutional Vitals: Temp Pulse Resp BP Pulse Ox 97.9 F 82 16 104/75 100 12/30/16 16:53 12/30/16 16:53 12/30/16 16:53 12/30/16 16:53 12/30/16 16:53 Internal Medicine: Result - Labs CBC & Chem 7: 09/13/17 06:30 12/30/16 06:30 Labs: Short CBC 12/30/16 Range/Units 06:30 WBC 4.1 L (4.3-11.1) K/mcL Hgb 8.5 L (12.9-16.9) g/dL Hct 26.9 L (37.5-50.1) % Plt Count 191 (140-400) K/mcL Neutrophils # 3.0 (1.6-8.9) K/mcL BMP 12/30/16 06:30 Sodium 137 Potassium 3.3 L Chloride 102 Carbon Dioxide 29 BUN 4 L Creatinine 0.54 L Glucose 75 Calcium 7.8 L - Impressions Impressions Chest X-Ray 12/29/16 17:21 IMPRESSION: Increasing left basilar airspace disease. Small left pleural effusion. Right upper extremity PICC tip projects over the SVC. D/ / Casper Robertson MD / Casper Robertson MD Interpreting Provider: Casper Robertson MD Chest CT 12/30/16 09:00 IMPRESSION: 1. Persistent though improved infectious bronchiolitis in the right upper and right lower lobes with near complete resolution in the left lower lobe. 2. Unchanged cavitary lesions with adjacent consolidative opacity in the superior segment of the left lower lobe, potentially cavitary pneumonia or metastatic disease. 3. Decreased size of a 6.9 cm x 4.3 cm cavitary lesion in the lingula with the cavity in direct indication with the left upper lobe bronchus. The finding corresponds with the biopsy-proven malignancy seen previously with superimposed infection possible. 4. Interlobular septal thickening in the aerated portions of the left upper lobe most likely represents edema from draining venous obstruction and/or partial aeration. Superimposed lymphangitic carcinomatosis is considered less likely. 5. Umgp-bm-cscxafib left lower lobe bronchial wall thickening with minimal to mild involvement in the right lung, suggestive of bronchitis given central airway secretions. 6. Unchanged appearance of metastatic left lower paratracheal and subcarinal lymph nodes. 7. Increased small loculated right pleural effusion. Malignant effusion is not excluded. 8. Increased small to moderate free-flowing right pleural effusion. At least trace ascites and mild anasarca. D/ / Channing Burnett MD / Channing Burnett MD Interpreting Provider: Channing Burnett MD - Attending Attestation I examined this patient and my medical decision-making was reviewed with the Resident Physician. I agree with the documented findings, disposition and treatment plan as described except to the extent set forth below.
[2016-12-30 06:47] LABS: Eosinophils % 0.2 %; Hematocrit 26.9 % (37.5-50.1); Hemoglobin 8.5 g/dL (12.9-16.9); Immature Granulocytes % 0.5 % (0-4); Lymphocytes # 0.9 K/mcL (0.6-4.6); Lymphocytes % 20.8 %; Mean Corpuscular HGB Conc 31.6 g/dL (31.6-35.5); Mean Corpuscular Hemoglobin 28.5 pg (28.0-33.3); Mean Corpuscular Volume 90.3 fL (83.0-100.0); Mean Platelet Volume 9.1 fL (9.4-12.4); Monocytes # 0.2 K/mcL (0.0-1.3); Monocytes % 5.4 %; Platelet Count 191 K/mcL (140-400); Red Blood Count 2.98 M/mcL (4.19-5.50); Red Cell Distribution Width 18.5 % (11.5-14.5); Segmented Neutrophils % 73.1 %
[2016-12-30 06:55] LABS: BUN/Creatinine Ratio 7 (6-26); Blood Urea Nitrogen 4 mg/dL (8-26); Calcium 7.8 mg/dL (8.6-10.8); Carbon Dioxide 29 mEq/L (19-29); Chloride 102 mEq/L (98-109); Glucose 75 mg/dL (70-99); Magnesium 1.4 mg/dL (1.6-2.6); Osmolality,Calculated 280 (280-300); Potassium 3.3 mEq/L (3.5-4.5); Sodium 137 mEq/L (136-145); eGFR For African Americans > 60 (> 60); eGFR For Non-African Americans > 60 (> 60)
[2016-12-30] MEDS: Thiamine (B-1) 100 MG TABLET PO SCH (09:28)
[2016-12-30] MEDS ORDERED: Magnesium Sulfate 2 GM in D5% in Water 100 ML IVPB ONE (09:40)
--- NOTE | 2016-12-30 16:37 | Pulmonology Consult Note ---
Date of Encounter: 12/30/16 Time of Encounter: 12:05 Assessment and Plan (1) Cavitary lesion of lung Current Visit: Yes Status: Acute I have reviewed CT chest results with the patient and also with primary team and this is most likely posttreatment of his squamous cell lung cancer, however superimposed infection cannot be ruled out and for that reason bronchoscopy is reasonable. I have explained all the risks, alternatives, benefits of the procedure to the patient and he wants to wait to do this time to discuss it with his daughter. I will tentatively schedule patient for bronchoscopy tomorrow in case she agreed to have it done. Otherwise current treatment is appropriate. (2) Abnormal CT scan, chest Current Visit: No Status: Acute (3) Squamous cell carcinoma of left lung Current Visit: No Status: Chronic History of Present Illness Consult date: 12/30/16 Requesting physician: Grace Ellis Reason for consult: dyspnea, pneumonia, other (Lung cancer) Chief complaint: Shortness of breath History of present illness: This is very pleasant 66-year-old male with significant history of stage IIIB squamous cell cancer and he has been treated with chemoradiation. Patient has been admitted for shortness of breath and has been diagnosed with pneumonia. Patient had CT chest with cavitary lesion and primary team consult with pulmonary for evaluation and questioning, the bronchoscopy. Patient overall is poor historian and he does have history of cough which is productive with no hemoptysis and denies any significant fever or chills. Patient has weight loss. Patient denies any significant wheezing. This is very difficult to get more history from the patient. Past Med Surg Social Fam HX - Past Medical History Medical history: cancer, other Psychiatric history: no psych history - Past Surgical History Surgical History: non-contributory - Social History Smoking Status: Former smoker Smokeless Tobacco Status: No Alcohol use: heavy Drug use: none - Family History Mother Living Status: Hx Family Cancer: Yes Father Living Status: Hx Family Cancer: Yes Medications and Allergies Oxycodone HCl/Acetaminophen [Percocet 7.5-325 mg Tablet] 1 each PO Q6H PRN #60 tablet 08/19/16 [Rx] Albuterol Sulfate [Ventolin Hfa] 2 puff IH Q6H PRN 09/04/16 [History] Nicotine Patch [Nicoderm] 14 mg TD DAILY #30 patch.td24 09/07/16 [Rx] LORazepam [Ativan] 1 tab PO QID PRN #30 tablet 09/11/16 [Rx] Loperamide [Imodium] 2 mg PO AD PRN #30 capsule 09/11/16 [Rx] Magic Mouthwash 5 ml PO Q4H PRN #240 ml 09/11/16 [Rx] Omeprazole [PriLOSEC] 20 mg PO DAILY #30 cap 09/11/16 [Rx] Ondansetron HCl [Zofran] 4 mg PO Q6H PRN #20 tablet 09/11/16 [Rx] Prochlorperazine Maleate [Compazine] 10 mg PO Q6HR PRN #30 tablet 09/11/16 [Rx] Doxycycline Hyclate 100 mg PO BID 12/24/16 [History] Dronabinol [Marinol] 5 mg PO BID 12/24/16 [History] Guaifen/Phenyleph/Acetaminophn [Mucinex Sinus-Max Severe Liq] 20 ml PO Q4H PRN 12/24/16 [History] Mirtazapine [Remeron] 15 mg PO 1800 12/24/16 [History] Potassium Chloride [K-Tab ER] 20 meq PO DAILY 12/24/16 [History] Thiamine Mononitrate [Vitamin B-1] 100 mg PO DAILY 12/24/16 [History] predniSONE [PredniSONE] 40 mg PO BIDWM 12/24/16 [History] 3 Allergy/AdvReac Type Severity Reaction Status Date / Time No Known Allergies Allergy Verified 08/19/16 16:42 All Systems: A 10-system review of systems was performed and is negative for pertinent findings except as documented above in the HPI. Physical Examination Vital Signs: I refer to the nursing documentation regarding vital signs. General appearance: lethargic Eyes: nonicteric ENT: oropharynx dry Mallampati (class): 1 Neck: supple, no lymphadenopathy Effort: normal Inspection: hyperextended Auscultation: bilateral: diminished breath sounds Percussion: bilateral: not dull Cardiovascular: regular rate and rhythm Gastrointestinal: normoactive bowel sounds Extremities: no cyanosis, no edema non-focal exam, pupils equal and round depressed Results - Laboratory Findings CBC and BMP: 12/30/16 06:30 12/30/16 06:30 Abnormal lab findings: Abnormal lab results WBC 4.1 K/mcL (4.3-11.1) L 12/30/16 06:30 RBC 2.98 M/mcL (4.19-5.50) L 12/30/16 06:30 Hgb 8.5 g/dL (12.9-16.9) L 12/30/16 06:30 Hct 26.9 % (37.5-50.1) L 12/30/16 06:30 RDW 18.5 % (11.5-14.5) H 12/30/16 06:30 MPV 9.1 fL (9.4-12.4) L 12/30/16 06:30 Potassium 3.3 mEq/L (3.5-4.5) L 12/30/16 06:30 BUN 4 mg/dL (8-26) L 12/30/16 06:30 Creatinine 0.54 mg/dL (0.72-1.25) L 12/30/16 06:30 POC Glucose 154 (58-89) H 12/24/16 23:02 Lactic Acid 2.7 mmol/L (0.5-2.2) H 12/25/16 07:47 Calcium 7.8 mg/dL (8.6-10.8) L 12/30/16 06:30 Magnesium 1.4 mg/dL (1.6-2.6) L 12/30/16 06:30 Troponin I 0.12 ng/mL (0-0.03) H* 12/25/16 07:47 B-Natriuretic Peptide 595 pg/mL (0-100) H 12/24/16 22:40 Serum Total Protein 5.0 g/dL (6.0-8.3) L 12/29/16 05:15 Albumin 1.9 g/dL (3.5-5.0) L 12/29/16 05:15 Albumin/Globulin Ratio 0.6 (1.1-2.2) L 12/29/16 05:15 Triglycerides 189 mg/dL (< 150) H 12/25/16 02:07 VLDL Cholesterol, Calc 38 mg/dL (< 31) H 12/25/16 02:07 HDL Cholesterol 26 mg/dL (40-59) L 12/25/16 02:07 Cholesterol/HDL Ratio 5.8 (0-4.9) H 12/25/16 02:07 - Microbiology Findings Microbiology Findings: Microbiology, Last 48 Hours 12/30/16 03:30 Sputum Culture - Preliminary Sputum - Diagnostic Findings CT scan - chest: report reviewed, image reviewed - Clinical Findings Intake & Output: Intake & Output 12/30/16 12/30/16 12/30/16 07:59 15:59 23:59 Intake Total 1220 / 1220 100 / 100 Output Total 1000 / 1000 200 / 200 Balance 220 / 220 -100 / -100 Weight 45.1 kg Consult Discharge Plan - Plan Referrals: Jose Enrique Vela MD [Non-Partnered Physician] - 12/31/16 10:15 am
[2016-12-30] MEDS: Mirtazapine 15 MG TABLET PO SCH (18:28)
[2016-12-31 04:09] LABS: Eosinophils % 0.6 %; Hematocrit 25.1 % (37.5-50.1); Hemoglobin 8.1 g/dL (12.9-16.9); Immature Granulocytes % 0.3 % (0-4); Immature Platelets 1.5 % (1.1-6.1); Lymphocytes # 0.9 K/mcL (0.6-4.6); Lymphocytes % 24.2 %; Mean Corpuscular HGB Conc 32.3 g/dL (31.6-35.5); Mean Corpuscular Hemoglobin 29.1 pg (28.0-33.3); Mean Corpuscular Volume 90.3 fL (83.0-100.0); Mean Platelet Volume 9.2 fL (9.4-12.4); Monocytes # 0.2 K/mcL (0.0-1.3); Neutrophils # 2.5 K/mcL (1.6-8.9); Platelet Count 218 K/mcL (140-400); Red Blood Count 2.78 M/mcL (4.19-5.50); Red Cell Distribution Width 18.6 % (11.5-14.5); Segmented Neutrophils % 69.9 %
[2016-12-31] MEDS: Piperacillin/Tazobactam 3.375 GM in D5% in Water (Mini-Bag+) 100 ML IVPB SCH ×3 (05:30→21:27)
[2016-12-31 06:09] LABS: BUN/Creatinine Ratio 5 (6-26); Calcium 7.7 mg/dL (8.6-10.8); Carbon Dioxide 28 mEq/L (19-29); Chloride 103 mEq/L (98-109); Glucose 75 mg/dL (70-99); Magnesium 1.6 mg/dL (1.6-2.6); Osmolality,Calculated 279 (280-300); Potassium 3.3 mEq/L (3.5-4.5); Sodium 137 mEq/L (136-145); eGFR For African Americans > 60 (> 60); eGFR For Non-African Americans > 60 (> 60)
[2016-12-31 06:10] LABS: Blood Urea Nitrogen 3 mg/dL (8-26)
--- NOTE | 2016-12-31 06:59 | Discharge Summary ---
Date of Encounter: 12/31/16 Time of Encounter: 06:59 - Discharge Diagnosis (1) HCAP (healthcare-associated pneumonia) Status: Acute (2) Squamous cell carcinoma of left lung Status: Chronic (3) Severe sepsis Status: Acute (4) Anemia Status: Acute Qualifiers: Anemia type: other cause Other causes of anemia: chronic disease, neoplastic Qualified Code(s): D63.0 - Anemia in neoplastic disease (5) Hypomagnesemia Status: Acute (6) Hypokalemia Status: Acute (7) DVT prophylaxis Status: Acute (8) Protein-calorie malnutrition, severe Status: Chronic - Discharge Medications Home Medications: Oxycodone HCl/Acetaminophen [Percocet 7.5-325 mg Tablet] 1 each PO Q6H PRN #60 tablet 08/19/16 [Rx] Albuterol Sulfate [Ventolin Hfa] 2 puff IH Q6H PRN 09/04/16 [History] Nicotine Patch [Nicoderm] 14 mg TD DAILY #30 patch.td24 09/07/16 [Rx] LORazepam [Ativan] 1 tab PO QID PRN #30 tablet 09/11/16 [Rx] Loperamide [Imodium] 2 mg PO AD PRN #30 capsule 09/11/16 [Rx] Magic Mouthwash 5 ml PO Q4H PRN #240 ml 09/11/16 [Rx] Omeprazole [PriLOSEC] 20 mg PO DAILY #30 cap 09/11/16 [Rx] Ondansetron HCl [Zofran] 4 mg PO Q6H PRN #20 tablet 09/11/16 [Rx] Prochlorperazine Maleate [Compazine] 10 mg PO Q6HR PRN #30 tablet 09/11/16 [Rx] Doxycycline Hyclate 100 mg PO BID 12/24/16 [History] Dronabinol [Marinol] 5 mg PO BID 12/24/16 [History] Guaifen/Phenyleph/Acetaminophn [Mucinex Sinus-Max Severe Liq] 20 ml PO Q4H PRN 12/24/16 [History] Mirtazapine [Remeron] 15 mg PO 1800 12/24/16 [History] Potassium Chloride [K-Tab ER] 20 meq PO DAILY 12/24/16 [History] Thiamine Mononitrate [Vitamin B-1] 100 mg PO DAILY 12/24/16 [History] predniSONE [PredniSONE] 40 mg PO BIDWM 12/24/16 [History] Allergies/Adverse Reactions: 3 Allergy/AdvReac Type Severity Reaction Status Date / Time No Known Allergies Allergy Verified 08/19/16 16:42 Procedures/tests Complete & Pending: Procedures Performed prior 72 hours Category Date Time Status CT chest w/o contrast [CT chest wo con] [CT] Routine Cat Scan 12/30/16 09:00 Completed Date of admission: 12/25/16 02:43 Primary care physician: PCP NONE Consults: 12/25/16 10:45 Consult to Invasive Line Access Team [CONS] Routine Reason for Consult: IV antibiotics including vanc. poor vascular access Line Type: PICC 12/25/16 14:56 Consult to Invasive Line Access Team [CONS] Routine Reason for Consult: Picc Line Insertion Line Type: PICC 12/25/16 18:42 Consult to Stress Analyst [CONS] Routine Reason for SW Consult: home health service in place and will need to be continued 12/28/16 11:14 Consult to Physical Therapy [CONS] Routine Comment: Evaluate, develop and implement POC Reason for Consult: SCC 12/28/16 11:15 Consult to Occupational Therapy [CONS] Routine Comment: Evaluate, develop and implement POC Reason for Consult: SCC 12/29/16 08:20 Consult to Oncology [CONS] Routine Consulting Provider: [facility] Reason for Consult: Squamous Cell Carcinoma Time Notified: 08:21 Call Completed: No 12/30/16 11:20 Consult to Pulmonology [CONS] Routine Consulting Provider: [facility] [place] Reason for Consult: Pneumonia, SCC Call Completed: Yes Discharging clinician: Grace Ellis Anticipated date of discharge: 12/31/16 - Patient Status Condition: Fair - Discharge Instructions Follow Up With: Jose Enrique Vela MD [Non-Partnered Physician] - 12/31/16 10:15 am Hospital course: Mr. Davenport is a 66 year old male - Time Spent with Patient Total time spent providing and/or coordinating discharge services: - Constitutional Vitals: Temp Pulse Resp BP Pulse Ox 98.0 F 81 17 118/77 94 12/31/16 06:52 12/31/16 06:52 12/31/16 06:52 12/31/16 06:52 12/31/16 06:52 General appearance: Present: cachectic, cooperative, A&O X 3, answers questions appropriately - VTE Documentation of Mechanical Device: Intermittent pneumatic compression device
--- NOTE | 2016-12-31 07:07 | Internal Med Progress Note ---
<Grace Ellis - Last Filed: 12/31/16 15:20> Date of Encounter: 12/31/16 Time of Encounter: 07:07 - Assessment and plan (1) HCAP (healthcare-associated pneumonia) Current Visit: Yes Status: Acute Assessment and plan: SOB likely 2/2 to HCAP s/p Vanc + Zosyn CXR demonstrated new patchy opacity in right upper long zone, concerning for pneumonia CT demonstrating persistent consolidation For cough, dextromethorphan PRN and tessalon PRN TID Tolerated bronchoscopy well today. Pathology report pending (2) Squamous cell carcinoma of left lung Current Visit: No Status: Chronic Assessment and plan: Mr. 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 S/p chemoradiation and remains 2 chemotherapy treatments left at [facility] Following family discussion regarding transfer, will arrange for a follow up at the outpatient oncology clinic with Dr. Hughes. 12/25/16 CT concerning for lymphangitic spread of his cancer. 12/30/16 Follow-up CT concerning for malignant effusion Pulmonology on consult, appreciate rec Family meeting tomorrow scheduled 10:30 AM tomorrow (3) Severe sepsis Current Visit: Yes Status: Acute Assessment and plan: Continue management (4) Anemia Current Visit: Yes Status: Acute Assessment and plan: Most likely related to stage IIIB squamous cell carcinoma and chronic disease. Qualifiers: Anemia type: other cause Other causes of anemia: chronic disease, neoplastic Qualified Code(s): D63.0 - Anemia in neoplastic disease (5) Hypomagnesemia Current Visit: Yes Status: Acute Assessment and plan: Mg level within normal limits today Continue to trend Mg level (6) Hypokalemia Current Visit: Yes Status: Acute Assessment and plan: Replete today. (7) DVT prophylaxis Current Visit: No Status: Acute Assessment and plan: Intermittent compression devices Enoxoparin held on 12/25 2/2 to 3 pt drop Hgb.Hgb stable since then (8) Protein-calorie malnutrition, severe Current Visit: Yes Status: Chronic Assessment and plan: Pt is cachetic with temporal wasting. BMI 15. Supplemental oral diet - Subjective Interval history: No acute events overnight. Pt cooperative and pleasant. Resident MD visited pt and family together -- sister of patient agreed to call for family meeting tomorrow at 10:30. - Constitutional Vitals: Temp Pulse Resp BP Pulse Ox 98.0 F 81 17 118/77 94 12/31/16 06:52 12/31/16 06:52 12/31/16 06:52 12/31/16 06:52 12/31/16 06:52 General appearance: Present: cachectic, cooperative, A&O X 3, answers questions appropriately Exam: frail - Head Head exam: Present: atraumatic, normocephalic Additional comments: evident hair loss - Eye Eye exam: Present: EOMI. Absent: conjunctival injection - Respiratory Respiratory exam: Present: decreased breath sounds. Absent: accessory muscle use, chest wall tenderness, respiratory distress, tachypnea - Cardiovascular Cardiovascular exam: Present: distant heart sounds, +S1, +S2. Absent: diastolic murmur, gallop, systolic murmur, tachycardia - GI/Abdominal GI/Abdominal exam: Present: diminished bowel sounds (protruding ribs), soft. Absent: distended, tenderness Internal Medicine: Result - Labs CBC & Chem 7: 12/31/16 03:30 12/31/16 03:30 Labs: Short CBC 12/31/16 Range/Units 03:30 WBC 3.6 L (4.3-11.1) K/mcL Hgb 8.1 L (12.9-16.9) g/dL Hct 25.1 L (37.5-50.1) % Plt Count 218 (140-400) K/mcL Neutrophils # 2.5 (1.6-8.9) K/mcL BMP 12/31/16 03:30 Sodium 137 Potassium 3.3 L Chloride 103 Carbon Dioxide 28 BUN 3 L Creatinine 0.57 L Glucose 75 Calcium 7.7 L - Impressions Impressions Chest CT 12/30/16 09:00 IMPRESSION: 1. Persistent though improved infectious bronchiolitis in the right upper and right lower lobes with near complete resolution in the left lower lobe. 2. Unchanged cavitary lesions with adjacent consolidative opacity in the superior segment of the left lower lobe, potentially cavitary pneumonia or metastatic disease. 3. Decreased size of a 6.9 cm x 4.3 cm cavitary lesion in the lingula with the cavity in direct indication with the left upper lobe bronchus. The finding corresponds with the biopsy-proven malignancy seen previously with superimposed infection possible. 4. Interlobular septal thickening in the aerated portions of the left upper lobe most likely represents edema from draining venous obstruction and/or partial aeration. Superimposed lymphangitic carcinomatosis is considered less likely. 5. Cgoe-zv-kzsrhuvy left lower lobe bronchial wall thickening with minimal to mild involvement in the right lung, suggestive of bronchitis given central airway secretions. 6. Unchanged appearance of metastatic left lower paratracheal and subcarinal lymph nodes. 7. Increased small loculated right pleural effusion. Malignant effusion is not excluded. 8. Increased small to moderate free-flowing right pleural effusion. At least trace ascites and mild anasarca. D/ / Channing Burnett MD / Channing Burnett MD Interpreting Provider: Chaninng Burnett MD - Diagnostic Studies Other Images Additional comments: Chest CTA 12/24/16 23:19 IMPRESSION: 1. No convincing evidence of a pulmonary embolus. 2. Development of a large cavitary, thick-walled lesion within the previously atelectatic left upper lobe. 3. Patchy areas of opacification within the left lower lobe with areas of either smaller cavitary lesions versus bronchiectasis. 4. Bronchial wall thickening is seen bilaterally with predominately centrilobular opacification involving the right upper and left lower lobes. Findings could represent lymphangitic spread of malignancy. 5. Left hilar adenopathy. D/ / Shreyas Cordero MD / Shreyas Cordero MD Interpreting Provider: Shreyas Cordero MD Chest X-Ray 12/29/16 17:21 IMPRESSION: Increasing left basilar airspace disease. Small left pleural effusion. Right upper extremity PICC tip projects over the SVC. D/ / Casper Robertson MD / Casper Robertson MD Interpreting Provider: Casper Robertson MD Chest CT 12/30/16 09:00 IMPRESSION: 1. Persistent though improved infectious bronchiolitis in the right upper and right lower lobes with near complete resolution in the left lower lobe. 2. Unchanged cavitary lesions with adjacent consolidative opacity in the superior segment of the left lower lobe, potentially cavitary pneumonia or metastatic disease. 3. Decreased size of a 6.9 cm x 4.3 cm cavitary lesion in the lingula with the cavity in direct indication with the left upper lobe bronchus. The finding corresponds with the biopsy-proven malignancy seen previously with superimposed infection possible. 4. Interlobular septal thickening in the aerated portions of the left upper lobe most likely represents edema from draining venous obstruction and/or partial aeration. Superimposed lymphangitic carcinomatosis is considered less likely. 5. Ivmj-ps-hsppkxex left lower lobe bronchial wall thickening with minimal to mild involvement in the right lung, suggestive of bronchitis given central airway secretions. 6. Unchanged appearance of metastatic left lower paratracheal and subcarinal lymph nodes. 7. Increased small loculated right pleural effusion. Malignant effusion is not excluded. 8. Increased small to moderate free-flowing right pleural effusion. At least trace ascites and mild anasarca. D/ / Channing Burnett MD / Channing Burnett MD Interpreting Provider: Channing Burnett MD 12/31 Bronchoscopy: Bilateral lung abnormalities: Copious, mucopurulent, thick secretions were found throughout the tracheobronchial tree. there were partially obstruction the airway. - VTE Documentation of Mechanical Device: Intermittent pneumatic compression device Consult Discharge Plan - Plan Referrals: Jose Enrique Vela MD [Non-Partnered Physician] - 01/07/17 3:30 pm <Juan F Sanchez P - Last Filed: 12/31/16 17:56> Date of Encounter: 12/31/16 - Constitutional Vitals: Temp Pulse Resp BP Pulse Ox 97.6 F 93 17 125/88 100 12/31/16 15:40 12/31/16 15:40 12/31/16 15:40 12/31/16 15:40 12/31/16 15:40 Internal Medicine: Result - Labs CBC & Chem 7: 12/31/16 03:30 12/31/16 03:30 Labs: Short CBC 12/31/16 Range/Units 03:30 WBC 3.6 L (4.3-11.1) K/mcL Hgb 8.1 L (12.9-16.9) g/dL Hct 25.1 L (37.5-50.1) % Plt Count 218 (140-400) K/mcL Neutrophils # 2.5 (1.6-8.9) K/mcL BMP 12/31/16 03:30 Sodium 137 Potassium 3.3 L Chloride 103 Carbon Dioxide 28 BUN 3 L Creatinine 0.57 L Glucose 75 Calcium 7.7 L - Attending Attestation I examined this patient and my medical decision-making was reviewed with the Resident Physician. I agree with the documented findings, disposition and treatment plan as described except to the extent set forth below. Pulmonology input appreciated. Family meeting tomorrow at 10:30 regarding further plan and discussion.
[2016-12-31] MEDS ORDERED: *HR* Midazolam HCl 5 MG/5 ML VIAL IVP ONE (09:57)
[2016-12-31] MEDS ORDERED: *HR* FentaNYL (PF) 100 MCG/2 ML VIAL ONE (09:57)
[2016-12-31] MEDS ORDERED: Lidocaine Viscous Oral Soln 15 ML SOLUTION ONE (10:15)
[2016-12-31] MEDS: *HR* FentaNYL (PF) 100 MCG/2 ML VIAL IVP PRN ×3 (10:37→10:40)
[2016-12-31] MEDS: *HR* Midazolam HCl 5 MG/5 ML VIAL IVP PRN ×3 (10:37→10:40)
[2016-12-31] MEDS ORDERED: Tetracaine/Benzocaine/Butamben 200MG/SPRAY (100SPY/BOT) MM ONE (10:43)
[2016-12-31] MEDS: 0.9 % Sodium Chloride 1,000 ML IVC SCH ×2 (10:56→11:23)
[2016-12-31 12:40] LABS: Source of Body Fluid LUNGLUL
[2016-12-31] MEDS: Thiamine (B-1) 100 MG TABLET PO SCH (14:43)
[2016-12-31 14:46] LABS: Appearance of Body Fluid Clear (Clear); Volume of Body Fluid 10 mL
[2016-12-31] MEDS: Mirtazapine 15 MG TABLET PO SCH (17:19)
[2017-01-01 03:42] LABS: Eosinophils % 0.8 %; Hematocrit 25.8 % (37.5-50.1); Immature Granulocytes % 0.5 % (0-4); Lymphocytes % 25.4 %; Mean Corpuscular Hemoglobin 28.3 pg (28.0-33.3); Mean Corpuscular Volume 91.2 fL (83.0-100.0); Monocytes # 0.2 K/mcL (0.0-1.3); Monocytes % 4.7 %; Neutrophils # 2.6 K/mcL (1.6-8.9); Platelet Count 185 K/mcL (140-400); Red Blood Count 2.83 M/mcL (4.19-5.50); Red Cell Distribution Width 18.6 % (11.5-14.5); Segmented Neutrophils % 68.6 %
[2017-01-01 03:44] LABS: BUN/Creatinine Ratio 5 (6-26); Calcium 7.7 mg/dL (8.6-10.8); Carbon Dioxide 27 mEq/L (19-29); Chloride 103 mEq/L (98-109); Glucose 74 mg/dL (70-99); Osmolality,Calculated 275 (280-300); Potassium 3.7 mEq/L (3.5-4.5); Sodium 135 mEq/L (136-145); eGFR For African Americans > 60 (> 60); eGFR For Non-African Americans > 60 (> 60)
[2017-01-01 03:45] LABS: Blood Urea Nitrogen 3 mg/dL (8-26)
[2017-01-01] MEDS: 0.9 % Sodium Chloride 1,000 ML IVC SCH (05:08)
[2017-01-01] MEDS: Piperacillin/Tazobactam 3.375 GM in D5% in Water (Mini-Bag+) 100 ML IVPB SCH ×2 (05:09→14:31)
[2017-01-01] MEDS: Thiamine (B-1) 100 MG TABLET PO SCH (09:13)
[2017-01-01 10:36] VITALS: BP 113/77
--- NOTE | 2017-01-01 11:30 | Discharge Summary ---
<CalebGrace - Last Filed: 01/01/17 13:40> Date of Encounter: 01/01/17 Time of Encounter: 11:22 - Discharge Diagnosis (1) HCAP (healthcare-associated pneumonia) Priority: Primary Status: Acute (2) Squamous cell carcinoma of left lung Priority: Primary Status: Chronic (3) Severe sepsis Priority: Primary Status: Resolved (4) Anemia Priority: Primary Status: Chronic Qualifiers: Anemia type: other cause Other causes of anemia: chronic disease, neoplastic Qualified Code(s): D63.0 - Anemia in neoplastic disease (5) Hypomagnesemia Priority: Secondary Status: Resolved (6) Hypokalemia Priority: Secondary Status: Resolved (7) DVT prophylaxis Priority: Secondary Status: Acute (8) Protein-calorie malnutrition, severe Priority: Secondary Status: Chronic - Discharge Medications Home Medications: Oxycodone HCl/Acetaminophen [Percocet 7.5-325 mg Tablet] 1 each PO Q6H PRN #60 tablet 08/19/16 [Rx] Albuterol Sulfate [Ventolin Hfa] 2 puff IH Q6H PRN 09/04/16 [History] Nicotine Patch [Nicoderm] 14 mg TD DAILY #30 patch.td24 09/07/16 [Rx] LORazepam [Ativan] 1 tab PO QID PRN #30 tablet 09/11/16 [Rx] Loperamide [Imodium] 2 mg PO AD PRN #30 capsule 09/11/16 [Rx] Magic Mouthwash 5 ml PO Q4H PRN #240 ml 09/11/16 [Rx] Omeprazole [PriLOSEC] 20 mg PO DAILY #30 cap 09/11/16 [Rx] Ondansetron HCl [Zofran] 4 mg PO Q6H PRN #20 tablet 09/11/16 [Rx] Prochlorperazine Maleate [Compazine] 10 mg PO Q6HR PRN #30 tablet 09/11/16 [Rx] Doxycycline Hyclate 100 mg PO BID 12/24/16 [History] Dronabinol [Marinol] 5 mg PO BID 12/24/16 [History] Guaifen/Phenyleph/Acetaminophn [Mucinex Sinus-Max Severe Liq] 20 ml PO Q4H PRN 12/24/16 [History] Mirtazapine [Remeron] 15 mg PO 1800 12/24/16 [History] Potassium Chloride [K-Tab ER] 20 meq PO DAILY 12/24/16 [History] Thiamine Mononitrate [Vitamin B-1] 100 mg PO DAILY 12/24/16 [History] predniSONE [PredniSONE] 40 mg PO BIDWM 12/24/16 [History] Allergies/Adverse Reactions: 3 Allergy/AdvReac Type Severity Reaction Status Date / Time No Known Allergies Allergy Verified 08/19/16 16:42 Procedures/tests Complete & Pending: Procedures Performed prior 72 hours Category Date Time Status CT chest w/o contrast [CT chest wo con] [CT] Routine Cat Scan 12/30/16 09:00 Completed Chest CTA 12/24/16 23:19 IMPRESSION: 1. No convincing evidence of a pulmonary embolus. 2. Development of a large cavitary, thick-walled lesion within the previously atelectatic left upper lobe. 3. Patchy areas of opacification within the left lower lobe with areas of either smaller cavitary lesions versus bronchiectasis. 4. Bronchial wall thickening is seen bilaterally with predominately centrilobular opacification involving the right upper and left lower lobes. Findings could represent lymphangitic spread of malignancy. 5. Left hilar adenopathy. D/ / Shreyas Cordero MD / Shreyas Cordero MD Interpreting Provider: Shreyas Cordero MD Chest X-Ray 12/29/16 17:21 IMPRESSION: Increasing left basilar airspace disease. Small left pleural effusion. Right upper extremity PICC tip projects over the SVC. D/ / Casper Robertson MD / Casper Robertson MD Interpreting Provider: Casper Robertson MD Chest CT 12/30/16 09:00 IMPRESSION: 1. Persistent though improved infectious bronchiolitis in the right upper and right lower lobes with near complete resolution in the left lower lobe. 2. Unchanged cavitary lesions with adjacent consolidative opacity in the superior segment of the left lower lobe, potentially cavitary pneumonia or metastatic disease. 3. Decreased size of a 6.9 cm x 4.3 cm cavitary lesion in the lingula with the cavity in direct indication with the left upper lobe bronchus. The finding corresponds with the biopsy-proven malignancy seen previously with superimposed infection possible. 4. Interlobular septal thickening in the aerated portions of the left upper lobe most likely represents edema from draining venous obstruction and/or partial aeration. Superimposed lymphangitic carcinomatosis is considered less likely. 5. Bcfn-wz-fxtotlaa left lower lobe bronchial wall thickening with minimal to mild involvement in the right lung, suggestive of bronchitis given central airway secretions. 6. Unchanged appearance of metastatic left lower paratracheal and subcarinal lymph nodes. 7. Increased small loculated right pleural effusion. Malignant effusion is not excluded. 8. Increased small to moderate free-flowing right pleural effusion. At least trace ascites and mild anasarca. D/ / Channing Burnett MD / Channing Burnett MD Interpreting Provider: Channing Burnett MD Date of admission: 12/25/16 02:43 Primary care physician: PCP NONE Consults: 12/25/16 10:45 Consult to Invasive Line Access Team [CONS] Routine Reason for Consult: IV antibiotics including vanc. poor vascular access Line Type: PICC 12/25/16 14:56 Consult to Invasive Line Access Team [CONS] Routine Reason for Consult: Picc Line Insertion Line Type: PICC 12/25/16 18:42 Consult to Track Maintainer [CONS] Routine Reason for SW Consult: home health service in place and will need to be continued 12/28/16 11:14 Consult to Physical Therapy [CONS] Routine Comment: Evaluate, develop and implement POC Reason for Consult: SCC 12/28/16 11:15 Consult to Occupational Therapy [CONS] Routine Comment: Evaluate, develop and implement POC Reason for Consult: SCC 12/29/16 08:20 Consult to Oncology [CONS] Routine Consulting Provider: [facility] Reason for Consult: Squamous Cell Carcinoma Time Notified: 08:21 Call Completed: No 12/30/16 11:20 Consult to Pulmonology [CONS] Routine Consulting Provider: [facility] Reason for Consult: Pneumonia, SCC Call Completed: Yes Discharging clinician: Grace Ellis Anticipated date of discharge: 01/01/17 - Patient Status Disposition: Transfer Other Functional capacity at discharge: bed bound Overall status at discharge: other (poor prognosis) - Discharge Instructions Follow Up With: Jose Enrique Vela MD [Non-Partnered Physician] - 01/07/17 3:30 pm Additional Instructions: Plan for transfer to [facility] - Diet and Activity Activity: wear oxygen at all times Diet: other (supplemental oral diet) Interval History: No acute events overnight. He continues to have some cough. When asked if any other issues, pt said he had no other complaints. Politely refuses SCDs this morning. Attending and resident MD had family meeting with patient and then patient's daughters. Hospital course: Mr. Davenport is a 66 year old male with significant history of stage IIIB squamous lung cell cancer s/p chemoradiation at [facility] with 2 remaining chemotherapy treatments left at [facility]. Patient has been admitted for shortness of breath and cough CXR concerning for healthcare-associated pneumonia. He was treated with IV Vancomycin and Zoysn. CT was concerning for lymphangitic spread of his cancer. 12/30/16 Follow-up for CT showed consolidative opacity in the superior segment of the left lower lobe, potentially cavitary pneumonia or metastatic disease. Bronchosocopy was performed for incomplete resolution of presumed pneumonia, and demonstrated bilateral lung abnormalities with copious thick secretions and evidence of cavity in left lung connecting with the airway. Patient was transferred to [facility] for increased complexity of care. - Time Spent with Patient Total time spent providing and/or coordinating discharge services: - Constitutional Vitals: Temp Pulse Resp BP Pulse Ox 98.3 F 95 16 113/77 100 01/01/17 10:35 01/01/17 10:35 01/01/17 10:35 01/01/17 10:35 01/01/17 10:35 General appearance: Present: cachectic, cooperative, A&O X 3, answers questions appropriately - Head Head exam: Present: atraumatic, normocephalic Additional comments: evident hair loss - Eye Eye exam: Present: EOMI, PERRL, conjuntiva pink, sclera anicteric. Absent: conjunctival injection Pupils: Present: PERRL - Respiratory Respiratory exam: Present: decreased breath sounds, rales (bilateral upper passes). Absent: respiratory distress - Cardiovascular Cardiovascular exam: Present: distant heart sounds, gallop, RRR, +S1, +S2 - GI/Abdominal GI/Abdominal exam: Present: normal bowel sounds, soft, no peritoneal signs. Absent: distended, tenderness - Skin Additional comments: bilateral dorsal side of forearm with senile purpura, skin warm, dry - VTE Documentation of Mechanical Device: Intermittent pneumatic compression device <Juan F Sanchez P - Last Filed: 01/01/17 17:59> Date of Encounter: 01/01/17 Procedures/tests Complete & Pending: Procedures Performed prior 72 hours Category Date Time Status CT chest w/o contrast [CT chest wo con] [CT] Routine Cat Scan 12/30/16 09:00 Completed Date of admission: 12/25/16 02:43 Primary care physician: PCP NONE Consults: 12/25/16 10:45 Consult to Invasive Line Access Team [CONS] Routine Reason for Consult: IV antibiotics including vanc. poor vascular access Line Type: PICC 12/25/16 14:56 Consult to Invasive Line Access Team [CONS] Routine Reason for Consult: Picc Line Insertion Line Type: PICC 12/25/16 18:42 Consult to Track Maintainer [CONS] Routine Reason for SW Consult: home health service in place and will need to be continued 12/28/16 11:14 Consult to Physical Therapy [CONS] Routine Comment: Evaluate, develop and implement POC Reason for Consult: SCC 12/28/16 11:15 Consult to Occupational Therapy [CONS] Routine Comment: Evaluate, develop and implement POC Reason for Consult: SCC 12/29/16 08:20 Consult to Oncology [CONS] Routine Consulting Provider: [facility] Reason for Consult: Squamous Cell Carcinoma Time Notified: 08:21 Call Completed: No 12/30/16 11:20 Consult to Pulmonology [CONS] Routine Consulting Provider: [facility] Reason for Consult: Pneumonia, SCC Call Completed: Yes Hospital course: Mr. Davenport is a 66 year old male - Time Spent with Patient Total time spent providing and/or coordinating discharge services: - Constitutional Vitals: Temp Pulse Resp BP Pulse Ox 98.3 F 95 16 113/77 100 01/01/17 10:35 01/01/17 10:35 01/01/17 10:35 01/01/17 10:35 01/01/17 10:35 - Attending Attestation I examined this patient and my medical decision-making was reviewed with the Resident Physician. I agree with the documented findings, disposition and treatment plan as described except to the extent set forth below.
[2017-01-01] MEDS: Mirtazapine 15 MG TABLET PO SCH (16:17)
== END 2017-01-01 17:53 | disposition other institution (70) | DRG 853 ==
LOC: 2ANU 19:01 → EMEROO 19:01 → 2ANU 22:20 → SUATTDRO 12-25 02:43 → 2ANU 12-30 14:15
PROVIDERS: ADMIT Internal Medicine; ATTEND Internal Medicine
PROC: ENDOBRF (2016-12-31 10:30)

== ENCOUNTER 2017-03-26 18:22 | Inpatient (IN) ==
[2017-03-26 19:42] LABS: Basophils % 0.4 %; Eosinophils # 0.2 K/mcL (0.0-0.6); Eosinophils % 1.8 %; Hematocrit 37.6 % (37.5-50.1); Hemoglobin 12.1 g/dL (12.9-16.9); Immature Granulocytes % 0.3 % (0-4); Lymphocytes % 9.9 %; Mean Corpuscular HGB Conc 32.2 g/dL (31.6-35.5); Mean Corpuscular Hemoglobin 28.7 pg (28.0-33.3); Mean Corpuscular Volume 89.1 fL (83.0-100.0); Mean Platelet Volume 8.9 fL (9.4-12.4); Monocytes # 0.9 K/mcL (0.0-1.3); Monocytes % 9.3 %; Neutrophils # 7.6 K/mcL (1.6-8.9); Platelet Count 421 K/mcL (140-400); Red Blood Count 4.22 M/mcL (4.19-5.50); Red Cell Distribution Width 13.3 % (11.5-14.5); Segmented Neutrophils % 78.3 %
[2017-03-26 19:49] LABS: BUN/Creatinine Ratio 38 (6-26); Blood Urea Nitrogen 35 mg/dL (8-26); Calcium 10.7 mg/dL (8.6-10.8); Carbon Dioxide 28 mEq/L (19-29); Chloride 97 mEq/L (98-109); Glucose 153 mg/dL (70-99); Osmolality,Calculated 297 (280-300); Potassium 3.8 mEq/L (3.5-4.5); Sodium 138 mEq/L (136-145); eGFR For African Americans > 60 (> 60); eGFR For Non-African Americans > 60 (> 60)
[2017-03-26] MEDS ORDERED: *HR* Morphine 2 MG/ML SYRINGE IVP ONE (20:02)
[2017-03-26] MEDS ORDERED: Ketorolac 15 MG/ML VIAL IVP ONE (20:02)
--- NOTE | 2017-03-26 20:02 | Emergency Department Note ---
Disposition Clinical Impression: Cavitary lesion of lung, Tobacco abuse Chest pain Qualifiers: Chest pain type: intercostal pain Qualified Code(s): R07.82 - Intercostal pain Pneumonia Qualifiers: Pneumonia type: due to unspecified organism Laterality: left Lung location: upper lobe of lung Qualified Code(s): J18.1 - Lobar pneumonia, unspecified organism Disposition: Admitted As Inpatient Condition: Good General Adult HPI - General Chief complaint: ED Chest Pain Stated complaint: Chest Pain Time Seen by Provider: 03/26/17 19:38 Source: patient Limitations: no limitations Nursing Notes Reviewed: Yes Vital Signs Reviewed: Yes - History of Present Illness HPI Narrative: 66 y/o male who has had 48 hours of left upper chest pain. It has been constant. He also reports a cough. He has a history of left upper lung cancer treated at the [facility]. He was on chemotherapy and radiation but he lost weight down to 80 lbs so stopped chemo. Now they are monitoring the size for change. Denies fever. The pain has been constant. It is not pleuritic in nature. He denies any other medical problems. No cardiac history. He takes no current medications. No LE edema. His weight has been increasing since being off chemo. Rates the pain 6/10. Pain Scale: 6 Improves with: nothing Worsens with: nothing Associated symptoms: Reports: denies other symptoms. Denies: nausea/vomiting Treatments Prior to Arrival: none - Related Data Home Medications Medication Instructions Recorded Confirmed Albuterol Sulfate [Ventolin Hfa] 2 puff IH Q6H PRN 09/04/16 03/26/17 Dronabinol [Marinol] 5 mg PO BID 12/24/16 03/26/17 Thiamine Mononitrate [Vitamin B-1] 100 mg PO DAILY 12/24/16 03/26/17 Previous Rx's Medication Instructions Recorded Loperamide [Imodium] 2 mg PO AD PRN #30 capsule 09/11/16 Omeprazole [PriLOSEC] 20 mg PO DAILY #30 cap 09/11/16 Ondansetron HCl [Zofran] 4 mg PO Q6H PRN #20 tablet 09/11/16 Prochlorperazine Maleate 10 mg PO Q6HR PRN #30 tablet 09/11/16 [Compazine] Allergies Allergy/AdvReac Type Severity Reaction Status Date / Time No Known Allergies Allergy Verified 03/26/17 21:51 All systems ED: reviewed and negative except as stated. Constitutional: Denies: fever ENT ED: Denies: throat pain Cardiovascular: Reports: chest pain. Denies: dyspnea on exertion Respiratory: Reports: cough, dyspnea Gastrointestinal: Denies: abdominal pain Musculoskeletal: Denies: back pain Integumentary: Denies: rash Past Medical History - Past Medical History Medical history: Reports: cancer Surgical history: Reports: non-contributory Psychiatric history: Reports: no psych history - Social History Smoking Status: Former smoker Smokeless Tobacco Status: No Alcohol use: Reports: none Drug use: Reports: none Physical Exam - General Limitations: no limitations General appearance: alert, in no apparent distress - Head Head exam: atraumatic - Eye Eye exam: Present: normal appearance, PERRL - ENT ENT exam: normal exam - Neck Neck exam: Present: normal inspection - Chest Chest inspection: Present: normal inspection - Respiratory Respiratory exam: Present: other (occasional rhonchi which clears with coughing. ). Absent: respiratory distress - Cardiovascular Cardiovascular exam: Present: regular rate, normal rhythm - Abdominal Exam Abdominal exam: Present: soft, Non-Tender - Extremities Exam Extremities exam: Present: normal inspection - Neurological Exam Neurological exam: Present: alert, oriented X3 - Skin Skin exam: Present: warm, dry Course Course Narrative: CXR shows a left sided unchanged cavitary lesion with potentially infection superimposition. Will do a CTA for further evaluation. airspace opacities with likely pneumonia seen on CTA. Will admit for IV abx due to obstructive pneumonia Vital Signs Temperature 97.9 F 03/26/17 18:24 Pulse Rate 57 03/26/17 18:24 Respiratory Rate 18 03/26/17 18:24 Blood Pressure 116/73 03/26/17 18:24 O2 Sat by Pulse Oximetry 99 03/26/17 18:24 Temperature 97.9 F 03/28/17 06:45 Pulse Rate 94 03/28/17 06:45 Respiratory Rate 16 03/28/17 09:46 Blood Pressure 112/73 03/28/17 09:46 O2 Sat by Pulse Oximetry 98 03/28/17 09:46 Oxygen Delivery Oxygen Delivery Room Air Medical Decision Making - Medical Records Medical records reviewed: Yes I reviewed the patient's medical records. - Lab Data Lab results reviewed: Yes I reviewed the patient's lab results. Result diagrams: 03/28/17 04:16 03/28/17 04:16 Lab Results 03/26/17 03/26/17 03/26/17 Range/Units 19:15 19:15 19:15 WBC 9.7 (4.3-11.1) K/mcL RBC 4.22 (4.19-5.50) M/mcL Hgb 12.1 L (12.9-16.9) g/dL Hct 37.6 (37.5-50.1) % MCV 89.1 (83.0-100.0) fL MCH 28.7 (28.0-33.3) pg MCHC 32.2 (31.6-35.5) g/dL RDW 13.3 (11.5-14.5) % Plt Count 421 H (140-400) K/mcL MPV 8.9 L (9.4-12.4) fL Immature Gran % 0.3 (0-4) % Seg Neutrophils % 78.3 % Lymphocytes % 9.9 % Monocytes % 9.3 % Eosinophils % 1.8 % Basophils % 0.4 % Neutrophils # 7.6 (1.6-8.9) K/mcL Lymphocytes # 1.0 (0.6-4.6) K/mcL Monocytes # 0.9 (0.0-1.3) K/mcL Eosinophils # 0.2 (0.0-0.6) K/mcL Basophils # 0.0 (0.0-0.2) K/mcL Sodium 138 (136-145) mEq/L Potassium 3.8 (3.5-4.5) mEq/L Chloride 97 L (98-109) mEq/L Carbon Dioxide 28 (19-29) mEq/L BUN 35 H (8-26) mg/dL Creatinine 0.91 (0.72-1.25) mg/dL Est GFR ( Amer) > 60 (> 60) Est GFR (Non-Af Amer) > 60 (> 60) BUN/Creatinine Ratio 38 H (6-26) Glucose 153 H (70-99) mg/dL Calculated Osmolality 297 (280-300) Calcium 10.7 (8.6-10.8) mg/dL Troponin I 0.00 (0-0.03) ng/mL - Radiology Data Radiology results reviewed: Yes I reviewed the patient's radiology results. - EKG Data EKG #1 EKG attestation: Yes I reviewed and interpreted this EKG. EKG shows normal: sinus rhythm Rate: normal Rhythm: NSR When compared to previous EKG there are: no significant changes Interpretation: no acute changes Attestation Statement - Attestation Attestation: I examined this patient and my medical decision-making was reviewed with the Resident Physician, Dr. Puga. I agree with the documented findings, disposition and treatment plan as described except to the extent set forth below. Pt is a 66 yo frail appearing wm who presents to the ER with c/o L upper chest pain for past 48 hrs, constant and nonradiating. Pt denies any associated sxs with this pain. Pt currently seen by [facility] for ALEXX Lung CA, for which he had been undergoing radiation and chemo, which was recently withheld due to significant weight loss by the pt. Pt reports that they are just monitoring it by serial imaging until he has recovered from the chemo. Pt denies any F/c, no URI sxs, no cough. No prior cardiac hx. I agree with the PE findings as documented. Pt in NAD on arrival. Pt's EKG NSR with no acute ischemia, labs wnl, CXR shows cavitary lesion in ALEXX. Recommend CT chest for further eval. CT shows ALEXX caivtary lesion with possible surrounding pneumonia. Concerned with obstructive pneumonia, will initiate IV antix, blood cxs, and admission.
[2017-03-26] MEDS ORDERED: Vancomycin 1,000 MG in D5% in Water 250 ML IVPB ONE (20:51)
[2017-03-27] MEDS ORDERED: Piperacillin/Tazobactam 3.375 GM in Water for inj. (sterile) 10 ML IVP SCH
[2017-03-27] MEDS: Piperacillin/Tazobactam 3.375 GM/200 ML BAG IVPB SCH ×3 (02:44→18:01)
[2017-03-27] MEDS ORDERED: Ondansetron 4 MG/2 ML VIAL IVP PRN (03:39)
[2017-03-27] MEDS ORDERED: Acetaminophen 325 MG TABLET PO PRN (03:40)
[2017-03-27] MEDS ORDERED: Naloxone 0.4 MG/ML INJ IVP PRN (03:40)
[2017-03-27] MEDS ORDERED: Albuterol 2.5 MG/3 ML NEBULIZER IH PRN (03:40)
[2017-03-27] MEDS ORDERED: Mag Hydrox/Al Hydrox/Simeth 30 ML UDC PO PRN (03:40)
--- NOTE | 2017-03-27 03:46 | Internal Med History&Physical ---
Date of Encounter: 03/27/17 Time of Encounter: 03:44 Assessment and Plan (1) Pneumonia Current visit: Yes Status: Acute Start IV Zosyn. CT chest did not show any PE but does show lung mass and bilateral pneumonia Qualifiers: Pneumonia type: due to unspecified organism Laterality: left Lung location: upper lobe of lung Qualified Code(s): J18.1 - Lobar pneumonia, unspecified organism (2) Chest pain Current visit: Yes Status: Acute Pleuritic treat symptomatically Qualifiers: Chest pain type: pleurodynia Qualified Code(s): R07.81 - Pleurodynia (3) Lung mass Current visit: No Status: Acute Status post chemotherapy radiation treatment (4) Atrial fibrillation with RVR Current visit: Yes Status: Acute Check cardiac enzymes and EKG. Check echocardiogram IV Nathalie Lamx Obtain cardiology consult in the morning please Internal Medicine - H&P: HPI Chief complaint: Chest pain Admitted From: Home Plans for Post Hospital Care: Home History of present illness: Mr. Davenport is a 66 year old male history of lung cancer status post chemoradiation treatment finished 2 months ago. Patient came in with the substernal and right-sided pleuritic chest pain along with cough but no sputum. No fever or chills no hemoptysis. CT chest done in the ER ruled out PE but showed multifocal pneumonia. Patient denies any other symptoms otherwise. No headache neck pain abdominal pain nausea vomiting diarrhea or dysuria urgency frequency. Patient was started on antibiotics. Later during the evening hours patient developed chest pain. EKG was unremarkable. Patient was noted in A. fib with RVR. Chest pain was substernal and nonradiating. We have restarted cardiac workup. Past Med Surg Social Fam HX - Past Medical History Medical history: cancer Psychiatric history: no psych history - Past Surgical History Surgical History: non-contributory - Social History Smoking Status: Former smoker Smokeless Tobacco Status: No Alcohol use: none Drug use: none - Family History Mother Living Status: Age at : 60 Cause of : cancer Hx Family Cancer: Yes Father Living Status: Age at : 85 Cause of : Cancer Hx Family Cancer: Yes Internal Medicine - H&P: Meds Albuterol Sulfate [Ventolin Hfa] 2 puff IH Q6H PRN 09/04/16 [History] Loperamide [Imodium] 2 mg PO AD PRN #30 capsule 09/11/16 [Rx] Omeprazole [PriLOSEC] 20 mg PO DAILY #30 cap 09/11/16 [Rx] Ondansetron HCl [Zofran] 4 mg PO Q6H PRN #20 tablet 09/11/16 [Rx] Prochlorperazine Maleate [Compazine] 10 mg PO Q6HR PRN #30 tablet 09/11/16 [Rx] Dronabinol [Marinol] 5 mg PO BID 12/24/16 [History] Thiamine Mononitrate [Vitamin B-1] 100 mg PO DAILY 12/24/16 [History] 3 Allergy/AdvReac Type Severity Reaction Status Date / Time No Known Allergies Allergy Verified 03/26/17 21:51 All Systems PM: A 10-system review of systems was performed and is negative for pertinent findings except as documented above in the HPI. - Constitutional Constitutional: no chills, no fever(s), no night sweats - EENT Eyes: no change in vision, no discharge, no pain, no photophobia Ears: no ear discharge, no ear pain, no tinnitus Nose, mouth and throat: no dysphagia, no nasal discharge, no neck pain, no sore throat - Cardiovascular Cardiovascular ROS IM: no chest pain, no diaphoresis, no dyspnea, no lightheadedness, no palpitations, no syncope - Respiratory Respiratory: no cough, no dyspnea, no wheezing, no excessive phlegm production - Gastrointestinal Gastrointestinal: no abdominal pain, no diarrhea, no hematemesis, no hematochezia, no melena, no nausea, no vomiting - Musculoskeletal Musculoskeletal ROS IM: no numbness, no tingling - Integumentary Integumentary IM: no rash, no unusual bruising - Neurological Neurological ROS: no confusion, no convulsions, no focal weakness, no numbness, no tingling, no tremor(s) - Hematologic/Lymphatic Hematologic/Lymphatic: no easy bruising - Constitutional Vitals: Temp Pulse Resp BP Pulse Ox 97.5 F L 81 17 117/84 99 03/26/17 23:06 03/26/17 23:06 03/26/17 23:06 03/26/17 23:06 03/26/17 23:06 General appearance: Present: A&O X 3, answers questions appropriately - Head Head exam: Present: atraumatic, normocephalic - Eye Eye exam: Present: PERRL, conjuntiva pink, sclera anicteric Pupils: Present: PERRL - Neck Neck exam general surgery: Present: supple, trachea midline. Absent: lymphadenopathy - Respiratory Respiratory exam: Present: CTAB, rhonchi. Absent: accessory muscle use, rales, wheezes - Cardiovascular Cardiovascular exam: Present: RRR, +S1, +S2. Absent: diastolic murmur, gallop, rubs, systolic murmur - GI/Abdominal GI/Abdominal exam: Present: normal bowel sounds, soft, no peritoneal signs. Absent: distended, tenderness - Extremities Exam Extremities exam: Present: warm, radial pulses palpable and symmetrical. Absent : calf tenderness, cyanotic, pedal edema - Neurological Exam Neurological exam: Present: CN II-XII intact, oriented X3, no focal deficits. Absent: pronater drift, facial droop, speech deficit - Skin Skin exam: Present: dry, intact Internal Med - H&P Results - Labs CBC & Chem 7: 03/26/17 19:15 03/26/17 19:15
[2017-03-27 04:15] LABS: Basophils # 0.1 K/mcL (0.0-0.2); Basophils % 0.5 %; Eosinophils # 0.2 K/mcL (0.0-0.6); Eosinophils % 1.9 %; Hemoglobin 12.1 g/dL (12.9-16.9); Immature Granulocytes % 0.3 % (0-4); Lymphocytes # 1.9 K/mcL (0.6-4.6); Mean Corpuscular HGB Conc 33.6 g/dL (31.6-35.5); Mean Corpuscular Hemoglobin 29.2 pg (28.0-33.3); Mean Platelet Volume 8.9 fL (9.4-12.4); Monocytes # 1.1 K/mcL (0.0-1.3); Monocytes % 11.8 %; Neutrophils # 6.3 K/mcL (1.6-8.9); Platelet Count 374 K/mcL (140-400); Red Blood Count 4.14 M/mcL (4.19-5.50); Red Cell Distribution Width 13.4 % (11.5-14.5); Segmented Neutrophils % 65.5 %
[2017-03-27 04:23] LABS: BUN/Creatinine Ratio 38 (6-26); Blood Urea Nitrogen 30 mg/dL (8-26); Calcium 10.1 mg/dL (8.6-10.8); Carbon Dioxide 22 mEq/L (19-29); Chloride 102 mEq/L (98-109); Glucose 109 mg/dL (70-99); Osmolality,Calculated 297 (280-300); Potassium 3.7 mEq/L (3.5-4.5); Sodium 140 mEq/L (136-145); eGFR For African Americans > 60 (> 60); eGFR For Non-African Americans > 60 (> 60)
[2017-03-27] MEDS: *HR* Morphine 2 MG/ML SYRINGE IVP PRN ×2 (04:31→10:35)
[2017-03-27] MEDS: 0.9 % Sodium Chloride 1,000 ML IVC SCH ×2 (04:54→12:35)
[2017-03-27] MEDS: dilTIAZem HCl 100 MG in D5% in Water 50 ML IVC SCH (04:56)
[2017-03-27] MEDS: *HR* Enoxaparin 60 MG/0.6 ML SYRINGE SQ SCH ×3 (05:35→20:30)
[2017-03-27] MEDS: Ipratropium/Albuterol Neb 3 ML IH SCH ×3 (06:17→16:05)
[2017-03-27] MEDS ORDERED: Piperacillin/Tazobactam 3.375 GM in D5% in Water (Mini-Bag+) 100 ML IVPB SCH (08:00)
[2017-03-27] MEDS ORDERED: *HR* Heparin 5,000 UNIT/ML VIAL SQ SCH (08:00)
--- NOTE | 2017-03-27 10:07 | Cardiology Consult Note ---
Date of Encounter: 03/27/17 Time of Encounter: 10:02 Assessment and Plan (1) Chest pain Current Visit: Yes Status: Chronic Pain left pectoral > 48 hrs negative CE's x 2. Likely 2ry to underlying lung disease, pain management per primary team. EKG borderline ST changes likely rate related. With current medical comorbidities no current plans for cardiac workups. Qualifiers: Chest pain type: intercostal pain Qualified Code(s): R07.82 - Intercostal pain (2) Atrial fibrillation with RVR Current Visit: Yes Status: Acute Possibly new in onset but likely PAF, ECHO pending, recommend Heparin IV for stroke risk reduction if not contraindicated. Titrate cardiazem drip for a HR < 110 (lenient rate control of afib) Discussion w patient/family: The assessment and plan as outlined above was discussed with the patient and/or family members who expressed understanding and agreement. All questions were answered. Thank you for involving us in the care of your patient. Please call with any questions. History of Present Illness Consult date: 03/27/17 Consult reason: Atrial fibrillation Chief complaint: Cough and racing heart History of present illness: Mr. Davenport is a 66 year old male with bilateral pneumonia, SCC Lung CA s/p chemoradiation with Left lung mass now in atrial fibrillation. Patient is a poor historian unable to answer all questions. He is tired and having constant chest pain over the left pectoral region. EKG shows atrial fibrillation with borderline ST changes. Cardiac markers also negative x 2. Describes palpiations this am described as worse than his previous episodes. Seems he does have PAF. On cardiazem drip at 2.5mg/hr rates below 100bpm. Borderline BP possibly secondary to pain meds. ECHO pending Past Med Surg Social Fam HX - Past Medical History Medical history: cancer Psychiatric history: no psych history - Past Surgical History Surgical History: non-contributory - Social History Smoking Status: Former smoker Smokeless Tobacco Status: No Alcohol use: none Drug use: none - Family History Mother Living Status: Age at : 60 Cause of : cancer Hx Family Cancer: Yes Father Living Status: Age at : 85 Cause of : Cancer Hx Family Cancer: Yes Medications and Allergies Albuterol Sulfate [Ventolin Hfa] 2 puff IH Q6H PRN 09/04/16 [History] Loperamide [Imodium] 2 mg PO AD PRN #30 capsule 09/11/16 [Rx] Omeprazole [PriLOSEC] 20 mg PO DAILY #30 cap 09/11/16 [Rx] Ondansetron HCl [Zofran] 4 mg PO Q6H PRN #20 tablet 09/11/16 [Rx] Prochlorperazine Maleate [Compazine] 10 mg PO Q6HR PRN #30 tablet 09/11/16 [Rx] Dronabinol [Marinol] 5 mg PO BID 12/24/16 [History] Thiamine Mononitrate [Vitamin B-1] 100 mg PO DAILY 12/24/16 [History] 3 Allergy/AdvReac Type Severity Reaction Status Date / Time No Known Allergies Allergy Verified 03/26/17 21:51 All Systems Review: A 10-system review of systems was performed and is negative for pertinent findings except as documented above in the HPI. Physical Examination Vital Signs, Last 4 Hours Temp Pulse Resp BP Pulse Ox 03/27/17 08:04 24 98 03/27/17 07:00 97.7 F 108 18 105/77 98 General: Conversant, No Apparent Distress HEENT: Atraumatic, Normocephaly, Mucus Membranes Moist Neck: No JVD, Normal carotid pulses Cardiac: Reg Rate and Rhythm, Normal S1 and S2, No Murmur Lungs: Normal Breath Sounds (diminished Bilateraly L>R), No Wheeze, Rales, Rhonchi Neuro: Alert and responsive, No focal deficits noted Abdomen: Soft, Non-Tender Skin: No rashes noted on visualized skin Musculoskeletal: No Chest Wall Tenderness Extremities: No Clubbing, No Cyanosis, No Edema, Normal Pulses Results 03/27/17 03:58 03/27/17 03:58 Lab Results 03/27/17 03/27/17 03:58 03:58 WBC 9.6 Hgb 12.1 L Hct 36.0 L Plt Count 374 Sodium 140 Potassium 3.7 Chloride 102 Carbon Dioxide 22 BUN 30 H Creatinine 0.80 Glucose 109 H Calcium 10.1 Consult Discharge Plan - Plan Referrals: NONE,PCP [Primary Care Provider] -
[2017-03-27] MEDS: Thiamine (B-1) 100 MG TABLET PO SCH (10:35)
[2017-03-27] MEDS ORDERED: *HR* Morphine 2 MG/ML SYRINGE IVP PRN (14:05)
--- NOTE | 2017-03-27 14:08 | Event Note ---
Date of Encounter: 03/27/17 Time of Encounter: 12:25 Patient is a 66y/o male with PMH of lung cancer s/p chemoradiation therapy admitted for HCAP and new onset Afib with RVR Patient seen and examined at bedside. Rate better controlled however remains on cardizem gtt anticoagulated with therapeutic dose of Lovenox (Lovenox 50mg SQ q12h) cardiology on board and consultation appreciated chest pain likely secondary to underlying PNA/malignancy will adjust pain medications continue broad spectrum antibiotics f/u blood cultures f/u 2D echo report labs and vitals reviewed.
[2017-03-27] MEDS: *HR* HYDROcodone/Acet 5/325 mg TABLET PO PRN (18:01)
[2017-03-27] MEDS: Levalbuterol Neb 1.25 MG/3 ML IH SCH (22:26)
[2017-03-28] MEDS: dilTIAZem HCl 100 MG in D5% in Water 50 ML IVC SCH (01:24)
[2017-03-28] MEDS: Piperacillin/Tazobactam 3.375 GM/200 ML BAG IVPB SCH ×3 (03:30→19:06)
[2017-03-28] MEDS: Levalbuterol Neb 1.25 MG/3 ML IH SCH ×4 (03:50→22:50)
[2017-03-28 04:43] LABS: Basophils % 0.5 %; Eosinophils % 0.3 %; Hematocrit 33.4 % (37.5-50.1); Hemoglobin 11.1 g/dL (12.9-16.9); Immature Granulocytes % 0.3 % (0-4); Lymphocytes # 2.1 K/mcL (0.6-4.6); Lymphocytes % 24.2 %; Mean Corpuscular HGB Conc 33.2 g/dL (31.6-35.5); Mean Corpuscular Hemoglobin 29.1 pg (28.0-33.3); Mean Corpuscular Volume 87.7 fL (83.0-100.0); Mean Platelet Volume 9.1 fL (9.4-12.4); Monocytes # 1.3 K/mcL (0.0-1.3); Monocytes % 14.5 %; Neutrophils # 5.3 K/mcL (1.6-8.9); Platelet Count 299 K/mcL (140-400); Red Blood Count 3.81 M/mcL (4.19-5.50); Red Cell Distribution Width 13.5 % (11.5-14.5); Segmented Neutrophils % 60.2 %
[2017-03-28 04:56] LABS: BUN/Creatinine Ratio 26 (6-26); Calcium 9.5 mg/dL (8.6-10.8); Carbon Dioxide 22 mEq/L (19-29); Chloride 108 mEq/L (98-109); Glucose 109 mg/dL (70-99); Magnesium 1.5 mg/dL (1.6-2.6); Osmolality,Calculated 296 (280-300); Phosphorous 3.2 mg/dL (2.3-4.7); Potassium 3.4 mEq/L (3.5-4.5); Sodium 142 mEq/L (136-145); eGFR For African Americans > 60 (> 60); eGFR For Non-African Americans > 60 (> 60)
[2017-03-28 05:02] LABS: Blood Urea Nitrogen 18 mg/dL (8-26)
[2017-03-28] MEDS ORDERED: Magnesium Sulfate 1 GM in D5% in Water 100 ML IVPB ONE (07:36)
[2017-03-28] MEDS: Thiamine (B-1) 100 MG TABLET PO SCH (08:44)
[2017-03-28] MEDS: *HR* Enoxaparin 60 MG/0.6 ML SYRINGE SQ SCH (08:44)
[2017-03-28] MEDS: *HR* HYDROcodone/Acet 5/325 mg TABLET PO PRN ×3 (08:50→17:44)
[2017-03-28] MEDS ORDERED: GuaiFENesin Liq 200 MG/10 ML UDC PO PRN (08:59)
[2017-03-28] MEDS: Benzonatate 100 MG CAPSULE PO PRN ×2 (09:12→17:44)
[2017-03-28 11:17] LABS: Thyroid Stimulating Hormone 1.687 mcIU/mL (0.350-4.840)
--- NOTE | 2017-03-28 11:51 | Cardiology Progress Note ---
Date of Encounter: 03/28/17 Time of Encounter: 11:00 Assessment and Plan (1) Atrial fibrillation with RVR Current Visit: Yes Status: Acute Per cardiology: -Possibly new in onset but likely PAF -[id number] score 0. Recommend aspirin. On lovenox. -Had been on cardizem drip. -AVerage HR previous 12 hours noted to be 91, atrial fibrillation. -TTE with LVEF preserved, no wall motion abnormalities. -Will start cardizem CD 120mg daily. -ASA 81mg started. -Cardiology will sign off and will follow in outpatient setting. 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 -Management per primary service. (3) Elevated troponin Current Visit: Yes Status: Acute Per cardiology: -Troponins 0, 0.05, 0.04 -Troponins flat and adynamic in the setting of a.fib RVR. -Denies chest pain. -ECG with no acute ischemic changes. -TTE with preserved LVEF, no segmental wall motion abnormalities. -Do not suspect NSTEMI, suspect demand ischemia related to above. NO cardiac rehab warranted. -Cardiology will sign off and will follow in outpatient setting. Discussion w patient/family: The assessment and plan as outlined above was discussed with the patient who expressed understanding and agreement. All questions were answered. Thank you for involving us in the care of your patient. Please call with any questions. Discussed and reviewed with . Subjective Principal diagnosis: a.fib RVR Interval history: Patient states he feels better today. Denies chest pain today. Objective Vital Signs, Last 4 Hours Resp BP Pulse Ox 03/28/17 09:46 16 112/73 98 General: Conversant, No Apparent Distress HEENT: Atraumatic, Normocephaly, Mucus Membranes Moist Neck: No JVD, Normal carotid pulses Cardiac: Normal S1 and S2, No Murmur, Other (irregularly irregular) Lungs: Other (Lung sounds diminished to left upper lobe. ) Neuro: Alert and responsive, No focal deficits noted Abdomen: Soft, Non-Tender Skin: No rashes noted on visualized skin Musculoskeletal: No Chest Wall Tenderness Extremities: No Clubbing, No Cyanosis, No Edema, Normal Pulses Results 03/28/17 04:16 03/28/17 04:16 Lab Results Impressions Echocardiogram 03/27/17 03:56 Impressions: LVEF 60%. Indeterminate diastolic function. Normal right ventricular structure and function. Mild mitral regurgitation. No pulmonary hypertension. Left Ventricular Wall Motion: Rest Echo Findings All wall segments showed normal motion. Findings: Study Quality * Technically adequate exam. ECG Findings * Atrial fibrillation. Left Ventricle * LVEF 60%. * Indeterminate diastolic function. Right Ventricle * Normal right ventricular structure and function. Left Atrium * Normal left atrial size. Right Atrium * Normal right atrial size. Interatrial Septum * No evidence of PFO by color Doppler. Aortic Valve * Trileaflet aortic valve with normal function. Mitral Valve * Mild mitral regurgitation. Tricuspid Valve * Mild tricuspid regurgitation. * No pulmonary hypertension. * Estimated RVSP is 18 mmHg. Pulmonic Valve * Normal pulmonic valve structure and function. Aorta * Normally sized aortic root. Pericardium * The pericardium appears normal. IVC * Normal IVC dimensions and inspiratory collapse. ADDENDUM: 03/27/17 1554 Impressions: LVEF 60%. Indeterminate diastolic function. Normal right ventricular structure and function. Mild mitral regurgitation. No pulmonary hypertension. Left Ventricular Wall Motion: Rest Echo Findings All wall segments showed normal motion. Findings: Study Quality * Technically adequate exam. ECG Findings * Atrial fibrillation. Left Ventricle * LVEF 60%. * Indeterminate diastolic function. Right Ventricle * Normal right ventricular structure and function. Left Atrium * Normal left atrial size. Right Atrium * Normal right atrial size. Interatrial Septum * No evidence of PFO by color Doppler. Aortic Valve * Trileaflet aortic valve with normal function. Mitral Valve * Mild mitral regurgitation. Tricuspid Valve * Mild tricuspid regurgitation. * No pulmonary hypertension. * Estimated RVSP is 18 mmHg. Pulmonic Valve * Normal pulmonic valve structure and function. Aorta * Normally sized aortic root. Pericardium * The pericardium appears normal. IVC * Normal IVC dimensions and inspiratory collapse. Active Medications Acetaminophen (Tylenol) 650 mg PO Q6HR PRN PRN Reason: Mild Pain (1-3) Stop: 09/26/17 03:41 Hydrocodone Bitart/Acetaminophen (Reasnor 5-325 Mg) 1 tab PO Q4HR PRN PRN Reason: Moderate Pain Stop: 09/26/17 14:05 Last Admin: 03/28/17 08:50 Dose: 1 tab Al Hydrox/Mg Hydrox/Simethicone (Maalox) 15 ml PO Q6HR PRN PRN Reason: Dyspepsia Stop: 09/26/17 03:41 Albuterol Sulfate (Proventil Neb) 2.5 mg IH Q2H PRN; Protocol PRN Reason: Shortness Of Breath/Wheezing Stop: 09/26/17 03:41 Last Admin: 03/27/17 08:04 Dose: 2.5 mg Benzonatate (Tessalon) 100 mg PO TID PRN PRN Reason: Cough Stop: 09/27/17 09:01 Last Admin: 03/28/17 09:12 Dose: 100 mg Diltiazem HCl (Cardizem Cd) 120 mg PO DAILY [facility] Stop: 09/27/17 12:01 Docusate Sodium (Colace) 100 mg PO BID PRN PRN Reason: Constipation Stop: 09/26/17 03:41 Dronabinol (Marinol) 5 mg PO BID [facility] Stop: 09/26/17 09:01 Last Admin: 03/28/17 08:44 Dose: 5 mg Enoxaparin Sodium (Lovenox) 50 mg SQ BID LUISA PRN Reason: Protocol Stop: 09/26/17 03:57 Last Admin: 03/28/17 08:44 Dose: 50 mg Guaifenesin (Robitussin Liq) 200 mg PO Q6HR PRN PRN Reason: Cough Stop: 09/27/17 09:00 Piperacillin Sod/Tazobactam Sod (Zosyn Premix 3.375 Gm/200 Ml) 3.375 gm in 200 mls @ 50 mls/hr IVPB Q8H [facility] Stop: 09/26/17 03:01 Last Admin: 03/28/17 11:38 Dose: 50 mls/hr Levalbuterol HCl (Xopenex) 1.25 mg IH [id number] [facility] Stop: 09/26/17 22:01 Last Admin: 03/28/17 09:46 Dose: 1.25 mg Morphine Sulfate (Morphine Sulfate) 4 mg IVP Q4HR PRN PRN Reason: Severe Pain (7-10) Stop: 09/26/17 03:41 Naloxone HCl (Narcan) 0.4 mg IVP Q2MIN PRN PRN Reason: Opioid Reversal Stop: 09/26/17 03:41 Omeprazole (Prilosec) 20 mg PO DAILY LUISA PRN Reason: Protocol Stop: 09/26/17 09:01 Last Admin: 03/28/17 08:49 Dose: 20 mg Ondansetron HCl (Zofran) 4 mg IVP Q4HR PRN; Protocol PRN Reason: Nausea And Vomiting Stop: 09/26/17 03:40 Thiamine HCl (Vitamin B-1) 100 mg PO DAILY LUISA Stop: 09/26/17 09:01 Last Admin: 03/28/17 08:44 Dose: 100 mg Laboratory Tests 03/26/17 03/27/17 03/27/17 19:15 03:58 11:01 Hgb 12.1 L Creatinine Troponin I 0.00 0.05 H* 03/27/17 03/28/17 03/28/17 16:14 04:16 04:16 Hgb 11.1 L Creatinine 0.68 L Troponin I 0.04 H* - Imaging and Cardiology Chest Xray: report reviewed Echo: report reviewed - EKG Interpretation EKG results cardiology: other (Telemetry reviewed with average HR previous 12 hours noted to be 91, atrial fibrillation. PVCs noted.) - VTE Documentation of Mechanical Device: Intermittent pneumatic compression device Consult Discharge Plan - Plan Referrals: NONE,PCP [Primary Care Provider] -
[2017-03-28] MEDS: Diltiazem CD (24hr) 120 MG CAPSULE PO SCH (12:03)
[2017-03-28] MEDS: Aspirin Enteric Coated 81 MG Tablet PO SCH (12:42)
--- NOTE | 2017-03-28 14:08 | Internal Med Progress Note ---
Date of Encounter: 03/28/17 Time of Encounter: 12:35 - Assessment and plan (1) Atrial fibrillation with RVR Current Visit: Yes Status: Acute Assessment and plan: Rate controlled with cardizem 120mg PO qd CHADVASC: 0 started on aspirin cardiology consult appreciated (2) HCAP (healthcare-associated pneumonia) Current Visit: No Status: Acute Assessment and plan: continue empiric IV abx blood culture prelim: no growth likely d/c in am with PO abx depending on clinical response (3) Lung mass Current Visit: No Status: Chronic Assessment and plan: Status post chemotherapy radiation treatment (4) DVT prophylaxis Current Visit: No Status: Acute Assessment and plan: Lovenox SQ - Subjective Interval history: Patient seen and examined at bedside. Resting in bed and reports of feeling better compared to previous day Rate better controlled and started on Cardizem PO d/c Lovenox SQ for AC given CHADVASC score of 0 - Constitutional Vitals: Temp Pulse Resp BP Pulse Ox 97.9 F 94 16 112/73 98 03/28/17 06:45 03/28/17 06:45 03/28/17 09:46 03/28/17 09:46 03/28/17 09:46 General appearance: Present: cachectic, A&O X 3, no acute distress, underweight , answers questions appropriately - Head Head exam: Present: atraumatic, normocephalic - Eye Eye exam: Present: conjuntiva pink, sclera anicteric - Respiratory Respiratory exam: Present: decreased breath sounds. Absent: respiratory distress, wheezes - Cardiovascular Cardiovascular exam: Present: irregular rhythm, +S1, +S2 - GI/Abdominal GI/Abdominal exam: Present: normal bowel sounds, soft, no peritoneal signs. Absent: distended, tenderness - Extremities Exam Extremities exam: Present: warm, radial pulses palpable and symmetrical. Absent : calf tenderness, pedal edema - Neurological Exam Neurological exam: Present: alert, oriented X3 - Psychiatric Psychiatric exam: Present: normal affect, normal mood Internal Medicine: Result - Labs CBC & Chem 7: 03/28/17 04:16 03/28/17 04:16 Labs: Short CBC 03/28/17 Range/Units 04:16 WBC 8.7 (4.3-11.1) K/mcL Hgb 11.1 L (12.9-16.9) g/dL Hct 33.4 L (37.5-50.1) % Plt Count 299 (140-400) K/mcL Neutrophils # 5.3 (1.6-8.9) K/mcL BMP 03/27/17 03/28/17 03:58 04:16 Sodium 140 142 Potassium 3.7 3.4 L Chloride 102 108 Carbon Dioxide 22 22 BUN 30 H 18 D Creatinine 0.80 0.68 L Glucose 109 H 109 H Calcium 10.1 9.5 Cardiac Enzymes 03/27/17 Range/Units 16:14 Troponin I 0.04 H* (0-0.03) ng/mL - Impressions Impressions Echocardiogram 03/27/17 03:56 Impressions: LVEF 60%. Indeterminate diastolic function. Normal right ventricular structure and function. Mild mitral regurgitation. No pulmonary hypertension. Left Ventricular Wall Motion: Rest Echo Findings All wall segments showed normal motion. Findings: Study Quality * Technically adequate exam. ECG Findings * Atrial fibrillation. Left Ventricle * LVEF 60%. * Indeterminate diastolic function. Right Ventricle * Normal right ventricular structure and function. Left Atrium * Normal left atrial size. Right Atrium * Normal right atrial size. Interatrial Septum * No evidence of PFO by color Doppler. Aortic Valve * Trileaflet aortic valve with normal function. Mitral Valve * Mild mitral regurgitation. Tricuspid Valve * Mild tricuspid regurgitation. * No pulmonary hypertension. * Estimated RVSP is 18 mmHg. Pulmonic Valve * Normal pulmonic valve structure and function. Aorta * Normally sized aortic root. Pericardium * The pericardium appears normal. IVC * Normal IVC dimensions and inspiratory collapse. ADDENDUM: 03/27/17 1554 Impressions: LVEF 60%. Indeterminate diastolic function. Normal right ventricular structure and function. Mild mitral regurgitation. No pulmonary hypertension. Left Ventricular Wall Motion: Rest Echo Findings All wall segments showed normal motion. Findings: Study Quality * Technically adequate exam. ECG Findings * Atrial fibrillation. Left Ventricle * LVEF 60%. * Indeterminate diastolic function. Right Ventricle * Normal right ventricular structure and function. Left Atrium * Normal left atrial size. Right Atrium * Normal right atrial size. Interatrial Septum * No evidence of PFO by color Doppler. Aortic Valve * Trileaflet aortic valve with normal function. Mitral Valve * Mild mitral regurgitation. Tricuspid Valve * Mild tricuspid regurgitation. * No pulmonary hypertension. * Estimated RVSP is 18 mmHg. Pulmonic Valve * Normal pulmonic valve structure and function. Aorta * Normally sized aortic root. Pericardium * The pericardium appears normal. IVC * Normal IVC dimensions and inspiratory collapse. - VTE Documentation of Mechanical Device: Intermittent pneumatic compression device Consult Discharge Plan - Plan Referrals: NONE,PCP [Primary Care Provider] -
--- NOTE | 2017-03-29 02:19 | Electrocardiograph Report ---
[address] [address] Test Date: 2017-03-26 Pat Name: Mikie Davenport Department: 102 Room: 2NE22 Gender: M [employer]: : 1950 Requested By: Yuan Ha Order Number: [id number] Reading MD: Rodger Ureña MD Measurements Intervals [place] Rate: 86 P: 43 MT: 162 QRS: 78 QRSD: 87 T: 90 QT: 358 QTc: 401 Interpretive Statements SINUS RHYTHM BASELINE ARTIFACT Electronically Signed On 03-29-2017 2:16:59 EST by Rodger Ureña MD
[2017-03-29] MEDS: *HR* HYDROcodone/Acet 5/325 mg TABLET PO PRN ×2 (03:35→15:46)
[2017-03-29] MEDS: Benzonatate 100 MG CAPSULE PO PRN (03:35)
[2017-03-29] MEDS: Piperacillin/Tazobactam 3.375 GM/200 ML BAG IVPB SCH ×2 (03:36→11:53)
[2017-03-29 03:46] LABS: Basophils % 0.7 %; Eosinophils # 0.1 K/mcL (0.0-0.6); Eosinophils % 1.4 %; Hematocrit 31.9 % (37.5-50.1); Hemoglobin 10.6 g/dL (12.9-16.9); Immature Granulocytes % 0.2 % (0-4); Lymphocytes # 0.7 K/mcL (0.6-4.6); Lymphocytes % 11.9 %; Mean Corpuscular HGB Conc 33.2 g/dL (31.6-35.5); Mean Corpuscular Hemoglobin 28.9 pg (28.0-33.3); Mean Corpuscular Volume 86.9 fL (83.0-100.0); Mean Platelet Volume 8.8 fL (9.4-12.4); Monocytes # 0.8 K/mcL (0.0-1.3); Monocytes % 13.5 %; Neutrophils # 4.1 K/mcL (1.6-8.9); Platelet Count 343 K/mcL (140-400); Red Blood Count 3.67 M/mcL (4.19-5.50); Red Cell Distribution Width 13.6 % (11.5-14.5); Segmented Neutrophils % 72.3 %
[2017-03-29] MEDS: Levalbuterol Neb 1.25 MG/3 ML IH SCH ×3 (04:04→15:53)
[2017-03-29 04:05] LABS: BUN/Creatinine Ratio 18 (6-26); Blood Urea Nitrogen 11 mg/dL (8-26); Calcium 8.9 mg/dL (8.6-10.8); Carbon Dioxide 22 mEq/L (19-29); Chloride 107 mEq/L (98-109); Glucose 85 mg/dL (70-99); Magnesium 1.3 mg/dL (1.6-2.6); Osmolality,Calculated 293 (280-300); Phosphorous 2.9 mg/dL (2.3-4.7); Potassium 2.7 mEq/L (3.5-4.5); Sodium 142 mEq/L (136-145); eGFR For African Americans > 60 (> 60); eGFR For Non-African Americans > 60 (> 60)
[2017-03-29] MEDS ORDERED: *HR* Enoxaparin 40 MG/0.4 ML SYRINGE SQ SCH (06:00)
[2017-03-29] MEDS: Thiamine (B-1) 100 MG TABLET PO SCH (07:50)
[2017-03-29] MEDS: Aspirin Enteric Coated 81 MG Tablet PO SCH (07:50)
[2017-03-29] MEDS: Diltiazem CD (24hr) 120 MG CAPSULE PO SCH (10:40)
[2017-03-29 11:31] VITALS: BP 99/63
--- NOTE | 2017-03-29 11:56 | Discharge Summary ---
Date of Encounter: 03/30/17 Time of Encounter: 11:55 - Discharge Diagnosis (1) Chest pain Priority: Primary Status: Chronic Qualifiers: Chest pain type: intercostal pain Qualified Code(s): R07.82 - Intercostal pain (2) Pneumonia Priority: Primary Status: Acute Qualifiers: Pneumonia type: due to unspecified organism Laterality: left Lung location: upper lobe of lung Qualified Code(s): J18.1 - Lobar pneumonia, unspecified organism (3) Hypokalemia Priority: Primary Status: Resolved (4) Atrial fibrillation with RVR Priority: Primary Status: Acute (5) Elevated troponin Priority: Primary Status: Acute (6) Lung mass Priority: Secondary Status: Chronic (7) Severe protein-calorie malnutrition Priority: Primary Status: Acute - Discharge Medications Prescriptions: Aspirin Enteric Coated [Aspirin EC] 81 mg PO DAILY #30 tablet. Benzonatate [Tessalon] 100 mg PO TID PRN #30 capsule PRN Reason: Cough Diltiazem CD (24hr) [Cardizem CD] 120 mg PO DAILY #30 cap.er.24h levoFLOXacin [Levaquin] 500 mg PO DAILY #7 tablet Magnesium Oxide [Mag-Ox] 400 mg PO DAILY #10 tablet Potassium Chloride [K-Tab ER] 20 meq PO DAILY #10 tablet.er Home Medications: Albuterol Sulfate [Ventolin Hfa] 2 puff IH Q6H PRN 09/04/16 [History] Loperamide [Imodium] 2 mg PO AD PRN #30 capsule 09/11/16 [Rx] Omeprazole [PriLOSEC] 20 mg PO DAILY #30 cap 09/11/16 [Rx] Ondansetron HCl [Zofran] 4 mg PO Q6H PRN #20 tablet 09/11/16 [Rx] Prochlorperazine Maleate [Compazine] 10 mg PO Q6HR PRN #30 tablet 09/11/16 [Rx] Dronabinol [Marinol] 5 mg PO BID 12/24/16 [History] Thiamine Mononitrate [Vitamin B-1] 100 mg PO DAILY 12/24/16 [History] Aspirin Enteric Coated [Aspirin EC] 81 mg PO DAILY #30 tablet. 03/29/17 [Rx] Benzonatate [Tessalon] 100 mg PO TID PRN #30 capsule 03/29/17 [Rx] Diltiazem CD (24hr) [Cardizem CD] 120 mg PO DAILY #30 cap.er.24h 03/29/17 [Rx] Magnesium Oxide [Mag-Ox] 400 mg PO DAILY #10 tablet 03/29/17 [Rx] Potassium Chloride [K-Tab ER] 20 meq PO DAILY #10 tablet.er 03/29/17 [Rx] levoFLOXacin [Levaquin] 500 mg PO DAILY #7 tablet 03/29/17 [Rx] Allergies/Adverse Reactions: 3 Allergy/AdvReac Type Severity Reaction Status Date / Time No Known Allergies Allergy Verified 03/26/17 21:51 Procedures/tests Complete & Pending: Procedures Performed prior 72 hours Category Date Time Status ECG 12 lead ECG [ECG] Routine Y 03/27/17 03:54 Completed EV echocardiogram Routine Y 03/27/17 03:56 Completed Date of admission: 03/27/17 03:40 Primary care physician: PCP NONE Consults: 03/27/17 07:41 Consult to Cardiology [CONS] Routine Comment: Consulting Provider: Cardiology Sheryl Reason for Consult: new onset afib Call Completed: Yes 03/28/17 14:08 Consult to Nutrition [CONS] Routine Comment: Consulting Provider: NUTRITION Reason for Dietary Consult: PO Supplementation 03/28/17 14:14 Consult to Physical Therapy [CONS] Routine Comment: Evaluate, develop and implement POC Reason for Consult: evaluation for placement or home health - Patient Status Disposition: Home, Self-Care Condition: Fair Overall status at discharge: patient is back to baseline - Discharge Instructions Instructions: Benzonatate (By mouth), Diltiazem (By mouth), Potassium Chloride (By mouth), Aspirin (By mouth), Levofloxacin (By mouth), Magnesium Oxide (By mouth), Atrial Fibrillation (DC), Chest Pain (DC), Sepsis (DC), Abuse of Alcohol (DC), Abuse of Alcohol (GEN), Anemia (GEN), Pneumonia (DC), Cigarette Smoking and Your Health, Geriatric Physical Therapist (GEN) Follow Up With: Jose Enrique Vela MD [Non-Partnered Physician] - 04/02/17 10:15 am Alvarez Cao [Partnered Physician] - (in 2 weeks office will call patient at home with appointment date and time) Additional Instructions: We electronically sent your cough pill (Tessalon) to [facility], and called in the rest of them. It should be ready when you get there. Continue your home oxygen as you did previously. - Diet and Activity Activity: resume usual activities as tolerated Diet: regular diet Hospital course: Mr. Davenport is a 66 year old male with history of lung cancer status post chemoradiation treatment finished 2 months ago. Patient came in with the substernal and right-sided pleuritic chest pain along with cough but no sputum. CT chest done in the ER ruled out PE but showed multifocal pneumonia. He was admitted and put on IV antibiotics. He continued to do well. He was able to be weaned down to his chronic oxygen needs of 2 L. The patient was noted to be in atrial fibrillation with RVR a few hours after admission and was put on a Cardizem drip. We did have cardiology see the patient and they switched him to oral Cardizem. He did not need anticoagulation as his chads 2 score was low. Cardiology was okay with him being on aspirin. While he was hospitalized he was noted to have low potassium and low magnesium supplemented him with those at discharge as well. His TSH was in normal range. He underwent an echocardiogram while hospitalized and showed EF 60% with normal right ventricular structure and function mild mitral regurgitation and no pulmonary hypertension. He will need follow-up with cardiology as well as primary care physician. - Time Spent with Patient Total time spent providing and/or coordinating discharge services: - Constitutional Vitals: Temp Pulse Resp BP Pulse Ox 98.1 F 87 16 99/63 98 03/29/17 11:29 03/29/17 11:29 03/29/17 11:29 03/29/17 11:29 03/29/17 11:29 General appearance: Present: cachectic, A&O X 3, no acute distress, underweight , answers questions appropriately Exam: GEN: NAD CVS: RRR. S1, S2, No m/r/g RESP: CTAB ABD: Soft, NT, ND, +BS EXT: No edema. 2+ DP, No rashes NEURO: Nonfocal - VTE Documentation of Mechanical Device: Intermittent pneumatic compression device
[2017-03-29] MEDS ORDERED: Magnesium Oxide 400 MG TABLET PO ONE (12:05)
--- NOTE | 2017-03-29 14:38 | Electrocardiograph Report ---
[address] [place], [place] [address] Test Date: 2017-03-27 Pat Name: Mikie Evansler Department: 111 Room: 2NE22 Gender: M [employer]: : 1950 Requested By: Silvia Gaviria Order Number: [id number] Reading MD: Yuan Davenport Measurements Intervals [place] Rate: 146 P: HI: 0 QRS: 42 QRSD: 95 T: 73 QT: 292 QTc: 376 Interpretive Statements ATRIAL FIBRILLATION WITH RAPID VENTRICULAR RESPONSE LOW QRS VOLTAGE IN EXTREMITY LEADS ST DEPRESSION, CONSIDER SUBENDOCARDIAL INJURY Electronically Signed On 03-29-2017 14:36:58 EST by Yuan Davenport
== END 2017-03-29 18:16 | disposition home or self-care (01) | DRG 193 ==
LOC: 2NENU 18:22 → EMEROO 18:22 → 2NENU 21:31 → SUATTDRO 03-27 03:40
PROVIDERS: ADMIT Internal Medicine; ATTEND Internal Medicine